=== PATIENT | male | born 1945 | race Caucasian/White ===

== ENCOUNTER → 2016-02-28 | Outpatient (REF) | payer MEDICARE, MEDICAID ==
[~2016-02-28] MED LIST: ASPI325T; AVAP75TA PO; CALC500T36 PO; CIPR500T89 PO; COUM2.5T11 PO; FIBE625T PO; LYRI75CA PO; MAGN250T9 PO; MULTCAP PO; PERC5TAB6 PO; TRAM50TA2 PO; TYLE325T5 PO; VITA100037 PO
[2016-02-28 15:59] LABS: ALBUMIN/GLOBULIN RATIO 1.18 (1.00-1.93); ALKALINE PHOSPHATASE 67 U/L (45-117); ALT/SGPT 47 U/L (12-78); ANION GAP 11 MEQ/L (8-16); AST/SGOT 29 U/L (15-37); BILIRUBIN,TOTAL 1.3 MG/DL (0.2-1.0); BLOOD UREA NITROGEN 10 MG/DL (7-18); CALCIUM LEVEL 8.8 MG/DL (8.8-10.2); CARBON DIOXIDE LEVEL 27 MEQ/L (21-32); CHLORIDE LEVEL 104 MEQ/L (98-107); CHOLESTEROL LEVEL 159 MG/DL (<200); CREATININE FOR GFR 0.78 MG/DL (0.70-1.30); GLOMERULAR FILTRATION RATE > 60.0 (>49); GLUCOSE, FASTING 119 MG/DL (80-110); POTASSIUM SERUM 4.6 MEQ/L (3.5-5.1); SODIUM LEVEL 142 MEQ/L (136-145); TOTAL PROTEIN 7.4 GM/DL (6.4-8.2); TRIGLYCERIDES LEVEL 170 MG/DL (<150)
== END ==
LOC: M SFHCLACO 10:08
PROVIDERS: ATTEND Physician Assistant
DX: I10 Essential (primary) hypertension (principal); E78.6 Lipoprotein deficiency; Z68.42 Body mass index [BMI] 45.0-49.9, adult

== ENCOUNTER → 2016-04-09 | Outpatient (CLI) | payer MEDICAID, MEDICARE ==
[~2016-04-09] VITALS: Ht 167.6 cm; Wt 127.0 kg
[~2016-04-09] MED LIST changes: +LIDOCAINE 2% INJ 100 MG/5 ML SDV (FOR ANES.) As Ordered ONE; +PROPOFOL 200 MG/20 ML VIAL As Ordered ONE; +naproxen PO
--- NOTE | 2016-04-09 09:50 | ROOR ---
Patient Name: Sean Zaragoza Procedure Date: 04/09/2016 9:20 AM Date of : 1945 Age: 70 Room: [facility] Gender: Male Note Status: Finalized Procedure: Colonoscopy Indications: High risk colon cancer surveillance: Personal history of colonic polyps, Surveillance: Personal history of piecemeal removal of large sessile adenoma on last colonoscopy 6 months ago, Last colonoscopy: June 2015 Providers: Alec CADENA MD Referring MD: GRECIA Gonzalez PA-C Requesting Provider: Medicines: Sedation Required Anesthesia Staff Assistance Complications: No immediate complications. Procedure: Pre-Anesthesia Assessment: - The heart rate, respiratory rate, oxygen saturations, blood pressure, adequacy of pulmonary ventilation, and response to care were monitored throughout the procedure. The Colonoscope was introduced through the anus and advanced to the cecum, identified by appendiceal orifice and ileocecal valve. The colonoscopy was performed without difficulty. The patient tolerated the procedure well. The quality of the bowel preparation was good. Findings: The perianal and digital rectal examinations were normal. A 4 mm polyp was found in the ascending colon. The polyp was sessile. The polyp was removed with a hot snare. Resection and retrieval were complete. Two sessile polyps were found in the distal sigmoid colon. The polyps were 4 to 5 mm in size. These polyps were removed with a hot snare. Resection and retrieval were complete. A 4 mm polyp was found in the mid sigmoid colon. The polyp was flat. The polyp was removed with a hot snare. Resection and retrieval were complete. A tattoo was seen in the mid sigmoid colon. A post-polypectomy scar was found at the tattoo site. The polyp was removed with a hot snare. Resection and retrieval were complete. Impression: - One 4 mm polyp in the ascending colon, removed with a hot snare. Resected and retrieved. - Two 4 to 5 mm polyps in the distal sigmoid colon, removed with a hot snare. Resected and retrieved. - A tattoo was seen in the mid sigmoid colon. A post-polypectomy scar was found at the tattoo site. One 4 mm polyp at the tattoo site was removed with a hot snare. Resected and retrieved.- Recommendation: - Repeat colonoscopy in 1 year for surveillance of polyps greater than 1 cm in size. Alec Cadena MD Alec CADENA MD 04/09/2016 9:50:21 AM This report has been signed electronically. Number of Addenda: 0 Note Initiated On: 04/09/2016 9:20 AM Estimated Blood Loss: Estimated blood loss: none.
[2016-04-09 10:20] VITALS: BP 122/59
== END | disposition home or self-care (01) ==
LOC: M OPP 08:07
PROVIDERS: ATTEND Internal Medicine Gastroenterology
DX: Z09 Encounter for follow-up examination after completed treatment for conditions other than malignant neoplasm (principal); D12.2 Benign neoplasm of ascending colon; D12.5 Benign neoplasm of sigmoid colon; Z86.010 Personal history of colon polyps; I10 Essential (primary) hypertension; G47.30 Sleep apnea, unspecified; R06.83 Snoring; Z88.2 Allergy status to sulfonamides; Z88.8 Allergy status to other drugs, medicaments and biological substances; Z79.899 Other long term (current) drug therapy

== ENCOUNTER → 2016-08-16 | Outpatient (REF) | payer OTHER ==
[~2016-08-16] MED LIST changes: -AVAP75TA PO; +AVAP75TA7 PO; +CIPR-249 PO; -CIPR500T89 PO; -COUM2.5T11 PO; +COUM2.5T17 PO; -LIDOCAINE 2% INJ 100 MG/5 ML SDV (FOR ANES.) As Ordered ONE; +PERC5TAB12 PO; -PERC5TAB6 PO; -PROPOFOL 200 MG/20 ML VIAL As Ordered ONE; -VITA100037 PO; +VITA100067 PO
[2016-08-16 17:22] LABS: INR 1.07
[2016-08-16 18:14] LABS: ALBUMIN 3.9 GM/DL (3.2-5.2); ALBUMIN/GLOBULIN RATIO 1.26 (1.00-1.93); ALKALINE PHOSPHATASE 76 U/L (45-117); ALT/SGPT 45 U/L (12-78); ANION GAP 7 MEQ/L (8-16); AST/SGOT 26 U/L (15-37); BILIRUBIN,TOTAL 1.2 MG/DL (0.2-1.0); BLOOD UREA NITROGEN 19 MG/DL (7-18); CALCIUM LEVEL 9.3 MG/DL (8.8-10.2); CARBON DIOXIDE LEVEL 28 MEQ/L (21-32); CHLORIDE LEVEL 109 MEQ/L (98-107); CREATININE FOR GFR 0.94 MG/DL (0.70-1.30); GLOMERULAR FILTRATION RATE > 60.0 (>49); GLUCOSE, FASTING 163 MG/DL (80-110); POTASSIUM SERUM 4.5 MEQ/L (3.5-5.1); SODIUM LEVEL 144 MEQ/L (136-145)
[2016-08-16 19:36] LABS: BASO % 0.8 % (0.0-1.0); EOS # 0.2 K/mm3 (0.0-0.50); EOS % 2.8 % (0.0-3.0); LARGE UNSTAINED CELL # 0.1 K/mm3 (0.0-0.4); LYMPH # 1.9 K/mm3 (1.5-4.5); LYMPH % 31.1 % (24.0-44.0); MEAN CORPUSCULAR HEMOGLOBIN 32.9 pg (27.0-33.0); MEAN CORPUSCULAR HGB CONC 34.5 g/dl (32.0-36.5); MEAN CORPUSCULAR VOLUME 95.4 fl (80.0-96.0); MONO # 0.4 K/mm3 (0.0-0.8); MONO % 5.6 % (0.0-5.0); NEUTROPHILS # 3.5 K/mm3 (1.8-7.7); NEUTROPHILS % 57.6 % (36.0-66.0); PLATELET COUNT, AUTOMATED 176 k/mm3 (150-450); RED CELL DISTRIBUTION WIDTH 12.8 % (11.5-14.5); WHITE BLOOD COUNT 6.1 K/mm3 (4.0-10.0)
== END ==
LOC: M SFHCPLAZ 16:03
PROVIDERS: ATTEND Family Medicine
DX: Z01.818 Encounter for other preprocedural examination (principal); G56.02 Carpal tunnel syndrome, left upper limb; I10 Essential (primary) hypertension; R73.01 Impaired fasting glucose; Z68.42 Body mass index [BMI] 45.0-49.9, adult; G47.33 Obstructive sleep apnea (adult) (pediatric); Z79.899 Other long term (current) drug therapy
CPT/HCPCS: 80053; 83036; 85025; 85610; 85730; 93005; G0463

== ENCOUNTER → 2016-10-02 | Outpatient (REF) | payer OTHER ==
[2016-10-02 16:43] LABS: ALBUMIN 3.8 GM/DL (3.2-5.2); ALBUMIN/GLOBULIN RATIO 1.36 (1.00-1.93); ALKALINE PHOSPHATASE 60 U/L (45-117); ALT/SGPT 38 U/L (12-78); ANION GAP 8 MEQ/L (8-16); AST/SGOT 24 U/L (15-37); BLOOD UREA NITROGEN 17 MG/DL (7-18); CALCIUM LEVEL 8.6 MG/DL (8.8-10.2); CARBON DIOXIDE LEVEL 26 MEQ/L (21-32); CHLORIDE LEVEL 112 MEQ/L (98-107); CHOLESTEROL LEVEL 140 MG/DL (<200); GLOMERULAR FILTRATION RATE > 60.0 (>49); GLUCOSE, FASTING 99 MG/DL (80-110); POTASSIUM SERUM 4.5 MEQ/L (3.5-5.1); SODIUM LEVEL 146 MEQ/L (136-145); TOTAL PROTEIN 6.6 GM/DL (6.4-8.2); TRIGLYCERIDES LEVEL 110 MG/DL (<150)
== END ==
LOC: M SFHCLACO 09:37
PROVIDERS: ATTEND Physician Assistant
DX: I10 Essential (primary) hypertension (principal); E78.6 Lipoprotein deficiency; K21.9 Gastro-esophageal reflux disease without esophagitis; K76.89 Other specified diseases of liver; E61.2 Magnesium deficiency; G80.9 Cerebral palsy, unspecified; E66.01 Morbid (severe) obesity due to excess calories; H61.23 Impacted cerumen, bilateral; Z79.899 Other long term (current) drug therapy

== ENCOUNTER → 2017-01-29 | Outpatient (REF) | payer OTHER ==
[2017-01-29 14:56] LABS: ALBUMIN 4.2 GM/DL (3.2-5.2); ALBUMIN/GLOBULIN RATIO 1.27 (1.00-1.93); ALKALINE PHOSPHATASE 64 U/L (45-117); ALT/SGPT 45 U/L (12-78); ANION GAP 7 MEQ/L (8-16); AST/SGOT 24 U/L (7-37); BILIRUBIN,TOTAL 1.5 MG/DL (0.2-1.0); BLOOD UREA NITROGEN 19 MG/DL (7-18); CALCIUM LEVEL 8.6 MG/DL (8.8-10.2); CARBON DIOXIDE LEVEL 27 MEQ/L (21-32); CHLORIDE LEVEL 107 MEQ/L (98-107); CHOLESTEROL LEVEL 144 MG/DL (<200); CREATININE FOR GFR 0.88 MG/DL (0.70-1.30); GLOMERULAR FILTRATION RATE > 60.0 (>49); GLUCOSE, FASTING 98 MG/DL (80-110); POTASSIUM SERUM 4.3 MEQ/L (3.5-5.1); SODIUM LEVEL 141 MEQ/L (136-145); TOTAL PROTEIN 7.5 GM/DL (6.4-8.2); TRIGLYCERIDES LEVEL 100 MG/DL (<150)
== END ==
LOC: M SFHCLACO 09:39
PROVIDERS: ATTEND Physician Assistant
DX: E11.9 Type 2 diabetes mellitus without complications (principal); I10 Essential (primary) hypertension; E78.6 Lipoprotein deficiency

== ENCOUNTER → 2017-07-25 | Outpatient (REF) | payer MEDICARE ==
[2017-07-25 15:10] LABS: ALBUMIN 4.1 GM/DL (3.2-5.2); ALBUMIN/GLOBULIN RATIO 1.21 (1.00-1.93); ALKALINE PHOSPHATASE 62 U/L (45-117); ALT/SGPT 27 U/L (12-78); ANION GAP 8 MEQ/L (8-16); AST/SGOT 18 U/L (7-37); BILIRUBIN,TOTAL 1.6 MG/DL (0.2-1.0); BLOOD UREA NITROGEN 19 MG/DL (7-18); CALCIUM LEVEL 9.1 MG/DL (8.8-10.2); CARBON DIOXIDE LEVEL 27 MEQ/L (21-32); CHLORIDE LEVEL 107 MEQ/L (98-107); CHOLESTEROL LEVEL 131 MG/DL (<200); CHOLESTEROL RISK RATIO 3.852 (<5); CREATININE FOR GFR 0.89 MG/DL (0.70-1.30); GLOMERULAR FILTRATION RATE > 60.0 (>42); GLUCOSE, FASTING 92 MG/DL (70-100); HDL CHOLESTEROL 34 MG/DL (>40); LDL CHOLESTEROL 73.2 MG/DL (<100); NON-HDL-C 97 MG/DL; POTASSIUM SERUM 4.5 MEQ/L (3.5-5.1); SODIUM LEVEL 142 MEQ/L (136-145); TOTAL PROTEIN 7.5 GM/DL (6.4-8.2); TRIGLYCERIDES LEVEL 119 MG/DL (<150)
[2017-07-25 15:12] LABS: ESTIMATED AVERAGE GLUCOSE 108 MG/DL (60-110); HEMOGLOBIN A1c 5.4 %
== END ==
LOC: M SFHCLACO 10:13
DX: I10 Essential (primary) hypertension (principal); E11.9 Type 2 diabetes mellitus without complications; E78.6 Lipoprotein deficiency
CPT/HCPCS: 80053

== ENCOUNTER 2017-10-03 06:58 | Day surgery (SDC) | payer MEDICARE, MEDICAID ==
[2017-10-03] MEDS: NS 1,000 ML IV (07:15)
[2017-10-03] MEDS ORDERED: PROPOFOL 200 MG/20 ML VIAL As Ordered (07:47)
[2017-10-03] MEDS ORDERED: LIDOCAINE 2% INJ 100 MG/5 ML SDV (FOR ANES.) As Ordered (07:47)
== END 2017-10-03 08:36 | disposition home or self-care (01) ==
LOC: M OPP 08:36
DX: Z09 Encounter for follow-up examination after completed treatment for conditions other than malignant neoplasm (principal); Z86.010 Personal history of colon polyps; K57.30 Diverticulosis of large intestine without perforation or abscess without bleeding; K64.8 Other hemorrhoids; I10 Essential (primary) hypertension; E11.9 Type 2 diabetes mellitus without complications; M19.90 Unspecified osteoarthritis, unspecified site; M54.89 Other dorsalgia; G47.8 Other sleep disorders; G47.30 Sleep apnea, unspecified; R06.83 Snoring; G62.9 Polyneuropathy, unspecified; Z96.651 Presence of right artificial knee joint; Z87.891 Personal history of nicotine dependence; Z88.8 Allergy status to other drugs, medicaments and biological substances; Z88.2 Allergy status to sulfonamides; Z79.84 Long term (current) use of oral hypoglycemic drugs; Z79.899 Other long term (current) drug therapy
CPT/HCPCS: 45378

== ENCOUNTER → 2018-01-23 | Outpatient (REF) | payer MEDICARE ==
[2018-01-23 13:25] LABS: ALBUMIN 3.9 GM/DL (3.2-5.2); ALBUMIN/GLOBULIN RATIO 1.08 (1.00-1.93); ALKALINE PHOSPHATASE 66 U/L (45-117); ALT/SGPT 25 U/L (12-78); ANION GAP 6 MEQ/L (8-16); AST/SGOT 17 U/L (7-37); BILIRUBIN,TOTAL 1.3 MG/DL (0.2-1.0); BLOOD UREA NITROGEN 22 MG/DL (7-18); CALCIUM LEVEL 9.3 MG/DL (8.8-10.2); CARBON DIOXIDE LEVEL 30 MEQ/L (21-32); CHLORIDE LEVEL 105 MEQ/L (98-107); CHOLESTEROL LEVEL 136 MG/DL (<200); CREATININE FOR GFR 1.01 MG/DL (0.70-1.30); GLOMERULAR FILTRATION RATE > 60.0 (>42); GLUCOSE, FASTING 97 MG/DL (70-100); HDL CHOLESTEROL 32 MG/DL (>40); LDL CHOLESTEROL 84 MG/DL (<100); NON-HDL-C 104 MG/DL; POTASSIUM SERUM 5.1 MEQ/L (3.5-5.1); SODIUM LEVEL 141 MEQ/L (136-145); TOTAL PROTEIN 7.5 GM/DL (6.4-8.2); TRIGLYCERIDES LEVEL 100 MG/DL (<150)
[2018-01-23 14:07] LABS: ESTIMATED AVERAGE GLUCOSE 126 MG/DL (60-110)
== END ==
LOC: M SFHCADAM 09:23
DX: E11.9 Type 2 diabetes mellitus without complications (principal); E78.6 Lipoprotein deficiency
CPT/HCPCS: 80053

== ENCOUNTER 2018-05-17 23:33 | Inpatient (IN) | payer MEDICARE ==
[~2018-05-17] VITALS: Ht 167.6 cm; Wt 105.9 kg
[~2018-05-17 23:33] MED LIST changes: +ASPI-1; -ASPI325T; +CALC12504 PO; -CALC500T36 PO; +CALC600T60 PO; +FISH120016 PO; +METF500T4 PO; +MIRA3350 PO; +NAPR-837 PO; +NEUR100C PO
[2018-05-17] MEDS ORDERED: FISH7.5C PO (23:49)
[2018-05-17] MEDS ORDERED: LOSA50TA88 PO (23:49)
[2018-05-17] MEDS ORDERED: AMOX875T2 PO (23:50)
[2018-05-18] MEDS: IPRATROPIUM 0.5MG/ALBUTEROL 2.5MG INH SOL UD 3ML (DUONEB)(J7620) NEB SCH ×3 (00:52→01:51)
[2018-05-18 01:09] LABS: ABG BASE EXCESS 1.1 (-2.0-2.0); ABG HCO3 24.1 MEQ/L (22.0-26.0); ABG O2 SATURATION 89.3 % (95.0-99.0); ABG PARTIAL PRESSURE CO2 33.7 mmHg (35.0-45.0); ABG PARTIAL PRESSURE O2 57.3 mmHg (75.0-100.0); ABG STANDARD HCO3 25.3 MEQ/L (22.0-26.0); ABG TOTAL CO2 25.1 MEQ/L (23.0-31.0); ABG pH (ARTERIAL) 7.472 UNITS (7.350-7.450)
[2018-05-18 01:10] LABS: BASO # 0.1 10^3/uL (0.0-0.2); BASO % 0.7 % (0.0-1.0); EOS # 0.4 10^3/uL (0.0-0.50); EOS % 4.1 % (0.0-3.0); HEMATOCRIT 44.2 % (42.0-52.0); HEMOGLOBIN 15.3 g/dl (13.5-17.5); LYMPH % 10.8 % (24.0-44.0); MEAN CORPUSCULAR HEMOGLOBIN 30.5 pg (27.0-33.0); MEAN CORPUSCULAR HGB CONC 34.6 g/dl (32.0-36.5); MONO # 0.8 10^3/uL (0.0-0.8); MONO % 8.2 % (0.0-5.0); NEUTROPHILS # 7.1 10^3/uL (1.8-7.7); PLATELET COUNT, AUTOMATED 228 10^3/uL (150-450); RED BLOOD COUNT 5.02 10^6/uL (4.30-6.10); WHITE BLOOD COUNT 9.4 10^3/uL (4.0-10.0)
[2018-05-18 01:44] LABS: BLOOD UREA NITROGEN 16 MG/DL (7-18); CALCIUM LEVEL 9.2 MG/DL (8.8-10.2); CARBON DIOXIDE LEVEL 26 MEQ/L (21-32); CHLORIDE LEVEL 109 MEQ/L (98-107); CPK CREATINE PHOSPHOKINASE 122 U/L (39-308); CREATININE FOR GFR 0.85 MG/DL (0.70-1.30); GLOMERULAR FILTRATION RATE > 60.0 (>42); GLUCOSE, FASTING 90 MG/DL (70-100); MB/CK RELATIVE INDEX 1.15 (< OR =4); NT-PRO BNP 193 PG/ML (<125); SODIUM LEVEL 142 MEQ/L (136-145); TROPONIN I < 0.02 NG/ML (< 0.10)
[2018-05-18 01:45] LABS: INFLUENZA A AMPLIFICATION NEGATIVE (NEGATIVE); INFLUENZA B AMPLIFICATION NEGATIVE (NEGATIVE)
[2018-05-18] MEDS ORDERED: ISOVUE-370 76% 100ML VIAL (Q9967) As Ordered ONE (01:53)
[2018-05-18] MEDS ORDERED: dexameTHASONE 20 MG/5 ML VIAL (J1100) IV ONE (02:00)
[2018-05-18] MEDS ORDERED: cefTRIAXone SOD 1 GM in D5W MINI-BAG PLUS 50 ML IV ONE (02:00)
[2018-05-18] MEDS ORDERED: AZITHROMYCIN INJ 500 MG, VIAL MATE ADAPTER 1 EACH in D5W 250 ML IV ONE (02:00)
[2018-05-18] MEDS ORDERED: VITMTA PO (02:08)
--- NOTE | 2018-05-18 02:46 | REPVR ---
EXAM: CT Angiography Chest With Contrast EXAM DATE/TIME: 05/18/2018 1:55 AM CLINICAL HISTORY: 72 years old, male; Pain; Chest pain; Additional info: Dysp TECHNIQUE: Imaging protocol: Axial computed tomographic angiography images of the chest with intravenous contrast using CT angiography protocol. Coronal and sagittal reformatted images were created and reviewed. 3D rendering: MIP reconstructed images were created and reviewed. Radiation optimization: All CT scans at this facility use at least one of these dose optimization techniques: automated exposure control; mA and/or kV adjustment per patient size (includes targeted exams where dose is matched to clinical indication); or iterative reconstruction. Contrast material: ISO 370 Contrast volume: 75 ml Contrast route: IV COMPARISON: CR Chest, 2 view PA, Lat 05/18/2018 12:08 AM FINDINGS: Pulmonary arteries: The main pulmonary artery measures 29 mm. No gross central pulmonary embolism is identified. Aorta: The ascending thoracic aorta measures 35 mm. Lungs: Mild patchy bilateral pulmonary infiltrates and interstitial coarsening. Motion artifact of the lungs with image degradation. Pleural space: Normal. No pneumothorax. No pleural effusion. Heart: Normal. No cardiomegaly. No pericardial effusion. Spleen: Borderline splenomegaly. Lymph nodes: Small mediastinal nodes which are within normal limits. Bones/joints: Degenerative change and segmental ankylosis of the thoracic spine. Soft tissues: Unremarkable. IMPRESSION: 1. Mild patchy bilateral pulmonary infiltrates and interstitial coarsening. 2. Borderline splenomegaly. 3. Motion artifacts in the lungs with image degradation. No gross central pulmonary embolism is identified. Electronically signed by: Christopher Hawkins On 05/18/2018 02:45:29 AM
[2018-05-18] MEDS ORDERED: IPRATROPIUM 0.5MG/ALBUTEROL 2.5MG INH SOL UD 3ML (DUONEB)(J7620) NEB PRN (03:15)
[2018-05-18] MEDS ORDERED: ACETAMINOPHEN TAB 650MG DOSE (2X325MG) PO PRN (03:15)
[2018-05-18] MEDS ORDERED: NAPROXEN 250 MG TAB PO PRN (03:30)
--- NOTE | 2018-05-18 03:48 | HPEPDOC ---
[facility] Medical History & Physical History and Physical CHIEF COMPLAINT: Shortness of breath HISTORY OF PRESENT ILLNESS: Sean Zaragoza is a 72 YO M with history of hypertension and diabetes who presents with 2 weeks of shortness of breath. He states that he has been coughing so heavily that it has given him pain in his abdomen and his throat. One week ago he went to see his primary care physician, who wrote a prescription for Augmentin for 10 days. He has been taking it for 6 days so far with no improvement to his shortness of breath. He has also tried using his 's nebulizer with albuterol, which only provided a short amount of relief for his shortness of breath. He is coughing up yellow mucus. He denies any fevers or chills, nausea or vomiting or diarrhea. He does report a severe headache when he coughs. PAST MEDICAL HISTORY: 1. Kidney Stone 2. Hypertension 3. RJ, severe, on CPAP; follows with [facility] 4. Diabetes PAST SURGICAL HISTORY: 1. Compound fracture and dislocated elbow of L arm, 1975 2. Fractured R elbow 3. 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 Denies any other drug use. Has cats, dog, and 2 pigeons as pets Former lovett FAMILY HISTORY: Noncontributory ALLERGIES: Please see below. REVIEW OF SYSTEMS: 10 point review of systems was conducted and is negative other than what is stated above in HPI HOME MEDICATIONS: Please see below. PHYSICAL EXAMINATION: VITAL SIGNS: Temperature 96.8, pulse 77, respiratory rate 20, blood pressure 123/70, pulse oximetry 96% % on 2 L nasal cannula GENERAL APPEARANCE: Calm, cooperative, pleasant, laying in stretcher, awake, ap pears stated age HEENT: Moist mucous membranes. No erythema, no thyromegaly, fair dentition CARDIOVASCULAR: Regular rate and rhythm, no murmurs, rubs or gallops LUNGS: Rhonchorous breath sounds in all cook ABDOMEN: Protuberant, soft, nontender, positive bowel sounds MUSCULOSKELETAL: Moves all extremities well EXTREMITIES: No clubbing, cyanosis or edema NEUROLOGICAL: Cranial nerves II through XII intact, no focal deficits PSYCHIATRIC: Normal mood, normal affect, awake, alert and oriented 3 LABORATORY DATA: See below. IMAGING: CXR: Read pending CTA: 1. Mild patchy bilateral pulmonary infiltrates and interstitial coarsening. 2. Borderline splenomegaly. 3. Motion artifacts in the lungs with image degradation. No gross central pulmonary embolism is identified. MICROBIOLOGY: Please see below. ASSESSMENT: This is a 72-year-old male with a history of hypertension and diabetes who presents with almost 2 weeks of shortness of breath and no improvement despite 5 days of Augmentin. He will be admitted to the medical surgical floor for IV antibiotic therapy for suspected pneumonia versus interstitial disease PLAN: #Shortness of breath: Mostly likely 2/2 pneumonia vs upper respiratory infection. Patient is afebrile with WBC WNL. CT-A demonstrates bilateral infiltrates. -DuoNeb therapy Q3H PRN -IV Rocephin and Azithromycin therapy -Incentive spirometry -Oxygen titration orders for >90% -Sputum culture pending -lactic acid WNL -Patient uses CPAP at home; will need to use at night while inpatient #Hypertension: -Continue home Losartan #Diabetes: -Holding home Metformin -Consistent carbohydrate diet DVT Ppx: Antiembolic stockings CODE STATUS: FULL CODE Vital Signs Vital Signs Date Time Temp Pulse Resp B/P (MAP) Pulse Ox O2 Delivery O2 Flow Rate FiO2 05/18/18 03:16 96.8 05/18/18 03:00 123/70 (87) 05/18/18 02:22 77 20 96 Nasal Cannula 2.0 Laboratory Data Labs 24H Laboratory Tests 2 05/18/18 01:00: Immature Granulocyte % (Auto) 0.2, White Blood Count 9.4, Red Blood Count 5.02, Hemoglobin 15.3, Hematocrit 44.2, Mean Corpuscular Volume 88.0, Mean Corpuscular Hemoglobin 30.5, Mean Corpuscular Hemoglobin Concent 34.6, Red Cell Distribution Width 13.6, Platelet Count 228, Neutrophils (%) (Auto) 76.0H, Lymphocytes (%) (Auto) 10.8L, Monocytes (%) (Auto) 8.2H, Eosinophils (%) (Auto) 4.1H, Basophils (%) (Auto) 0.7, Neutrophils # (Auto) 7.1, Lymphocytes # (Auto) 1.0L, Monocytes # (Auto) 0.8, Eosinophils # (Auto) 0.4, Basophils # (Auto) 0.1, Nucleated Red Blood Cells % (auto) 0.0, Blood Gas Bicarbonate Standard 25.3, Arterial Blood pH 7.472H, Arterial Blood Partial Pressure CO2 33.7L, Arterial Blood Partial Pressure O2 57.3L, Arterial Blood Total CO2 25.1, Arterial Blood HCO3 24.1, Arterial Blood Base Excess 1.1, Arterial Blood Oxygen Saturation 89.3L, Anion Gap 7L, Glomerular Filtration Rate > 60.0, Lactic Acid Level 1.0, Blood Urea Ni trogen 16, Creatinine 0.85, Sodium Level 142, Potassium Level 4.0, Chloride Level 109H, Carbon Dioxide Level 26, Calcium Level 9.2, Total Creatine Kinase 122, Creatine Kinase MB 1.0, Creatine Kinase MB Relative Index 1.15, Troponin I < 0.02, QY-Vke-O-Type Natriuretic Peptide 193H, Influenza Type A (RT-PCR) NEGATIVE, Influenza Type B (RT-PCR) NEGATIVE CBC/BMP Laboratory Tests 05/18/18 01:00 Red Blood Count 5.02, Mean Corpuscular Volume 88.0, Mean Corpuscular Hemoglobin 30.5, Mean Corpuscular Hemoglobin Concent 34.6, Red Cell Distribution Width 13.6, Neutrophils (%) (Auto) 76.0 H, Lymphocytes (%) (Auto) 10.8 L, Monocytes (%) (Auto) 8.2 H, Eosinophils (%) (Auto) 4.1 H, Basophils (%) (Auto) 0.7, Neutrophils # (Auto) 7.1, Lymphocytes # (Auto) 1.0 L, Monocytes # (Auto) 0.8, Eosinophils # (Auto) 0.4, Basophils # (Auto) 0.1, Calcium Level 9.2, Total Creatine Kinase 122 Microbiology Microbiology 05/18/18 Blood Culture, Received Pending Home Medications Scheduled Amoxicillin/Clavulanate Potas (Amoxicillin/Clavulanate P 875-125 mg) 1 Tab Tab, 1 TAB PO BID START 05/12/18 TO TAKE X 10 DAYS Calcium Carbonate (Calcium) 600 Mg Tab, 600 MG PO DAILY Gabapentin (Neurontin) 100 Mg Cap, 100 MG PO TID Losartan Potassium (Losartan Potassium) 50 Mg Tab, 50 MG PO DAILY Metformin Hydrochloride (Metformin HCl ER) 500 Mg Tab, 500 MG PO BID Multivitamins *[facility] STOCKED* (Thera M Plus *[facility] STOCKED*) 1 Tab Tab, 1 TAB PO DAILY Bolt 3 Polyunsat Fatty Acids (Fish Oil 1000 mg) 1 Cap Cap, 1 CAP PO BID Polyethylene Glycol (Miralax) 1 Pow Pow, 17 GM PO DAILY Vitamin D (Vitamin D) 1,000 Unit Cap, 1,000 UNIT PO DAILY Scheduled PRN Naproxen (Naprosyn) 500 Mg Tab, 500 MG PO BID PRN for PAIN Allergies Coded Allergies: Sulfa (Sulfonamide Antibiotics) (Verified Allergy, Mild, RASH, 05/18/18) meloxicam (Verified Adverse Reaction, Mild, NV, 05/18/18) GME ATTESTATION GME ATTESTATION My faculty preceptor for this patient encounter was physically present during the encounter and was fully available. All aspects of the patient interview, examination, medical decision making process, and medical care plan development were reviewed and approved by the faculty preceptor. The faculty preceptor is aware and concurs with the plan as stated in the body of this note and will attest to such by his/her cosignature. ATTENDING NOTE ATTENDING ATTESTATION: I discussed and reviewed the findings and plan with resident. I have personally assessed patient at bedside and agreed with resident's assessment and plans. Patient noted to have interstitial lung pattern on CXR with fine velcro crackles throughout. Concern for possible interstitial lung disease/pulmonary fibrosis. Does have pigeon pets at home and possible occupational exposure. Obtain CT scan to better evaluate lung parenchyma. ARMIN DWYER MD May 18, 2018 03:48 BROOKLYN MENDEZ MD May 18, 2018 03:54
[2018-05-18 04:43] VITALS: BP 131/87
[2018-05-18 06:01] LABS: HEMOGLOBIN 14.9 g/dl (13.5-17.5); MEAN CORPUSCULAR HEMOGLOBIN 29.9 pg (27.0-33.0); MEAN CORPUSCULAR HGB CONC 33.9 g/dl (32.0-36.5); MEAN CORPUSCULAR VOLUME 88.2 fl (80.0-96.0); PLATELET COUNT, AUTOMATED 218 10^3/uL (150-450); RED BLOOD COUNT 4.99 10^6/uL (4.30-6.10); WHITE BLOOD COUNT 7.9 10^3/uL (4.0-10.0)
[2018-05-18 06:24] LABS: BLOOD UREA NITROGEN 15 MG/DL (7-18); CALCIUM LEVEL 9.3 MG/DL (8.8-10.2); CARBON DIOXIDE LEVEL 25 MEQ/L (21-32); CHLORIDE LEVEL 107 MEQ/L (98-107); GLOMERULAR FILTRATION RATE > 60.0 (>42); GLUCOSE, FASTING 164 MG/DL (70-100); POTASSIUM SERUM 3.5 MEQ/L (3.5-5.1); SODIUM LEVEL 140 MEQ/L (136-145)
[2018-05-18] MEDS: LEVALBUTEROL 1.25 MG/0.5 ML CONCENTRATE NEB INH SCH ×5 (08:00→23:56)
[2018-05-18] MEDS: GABAPENTIN 100 MG CAP PO SCH ×3 (08:19→20:47)
[2018-05-18] MEDS: LOSARTAN 50 MG TAB PO SCH (08:20)
[2018-05-18] MEDS ORDERED: LEVALBUTEROL 1.25 MG/0.5 ML CONCENTRATE NEB INH PRN (08:30)
[2018-05-18] MEDS ORDERED: SODIUM CHLORIDE NASAL 0.65% SPRAY BTL (OCEAN) PRN (08:45)
--- NOTE | 2018-05-18 08:49 | REP ---
Clinical: Dyspnea. Technique: PA and lateral. Comparison: 04/15/2015. Findings: Diffuse bilateral opacities are concerning for multifocal pneumonia and require correlation. No effusion. No pneumothorax. Mediastinum and cardiac silhouette normal. Skeletal structures demonstrate age-related changes. Impression: Diffuse bilateral opacities suggesting multifocal pneumonia. Electronically Signed by Surinder Sanford MD 05/18/2018 08:41 A
[2018-05-18 10:00] VITALS: BP 141/79
[2018-05-18] MEDS: SODIUM CHLORIDE NASAL 0.65% SPRAY BTL (OCEAN) SCH ×3 (10:21→20:47)
[2018-05-18] MEDS ORDERED: GLUCAGON FOR INJ 1 MG VIAL (J1610) SC PRN (11:15)
[2018-05-18] MEDS ORDERED: GLUCOSE 4 GM CHEW TABLET PO PRN (11:15)
[2018-05-18] MEDS ORDERED: DEXTROSE 50% 50 ML SYRINGE IV PRN (11:15)
[2018-05-18] MEDS: HumaLOG INSULIN (NovoLOG) PER UNIT SC SCH ×3 (13:09→20:48)
[2018-05-18 14:00] VITALS: BP 144/76
--- NOTE | 2018-05-18 15:46 | IPNPDOC ---
Date Seen The patient was seen on 05/18/18. Progress Note SUBJECTIVE: c/o dry cough difficult to expectorate. no chills. some SOB. not home o2 dependent. OBJECTIVE: PHYSICAL EXAMINATION: VITAL SIGNS: PLS SEE BELOW GENERAL APPEARANCE: Calm, cooperative, pleasant, laying in stretcher, awake, appears stated age HEENT: Moist mucous membranes. No erythema, no thyromegaly, fair dentition CARDIOVASCULAR: Regular rate and rhythm, no murmurs, rubs or gallops LUNGS: Rhonchorous breath sounds in all cook ABDOMEN: Protuberant, soft, nontender, positive bowel sounds MUSCULOSKELETAL: Moves all extremities well EXTREMITIES: No clubbing, cyanosis or edema NEUROLOGICAL: Cranial nerves II through XII intact, no focal deficits PSYCHIATRIC: Normal mood, normal affect, awake, alert and oriented 3 LABORATORY DATA, MICROBIOLOGY: See below. IMAGING: CXR: Read pending CTA: 1. Mild patchy bilateral pulmonary infiltrates and interstitial coarsening. 2. Borderline splenomegaly. 3. Motion artifacts in the lungs with image degradation. No gross central pulmonary embolism is identified. MICROBIOLOGY: Please see below. ASSESSMENT /PLAN:72 YO M with history of hypertension and diabetes who presents with 2 weeks of shortness of breath. He states that he has been coughing so heavily that it has given him pain in his abdomen and his throat. One week ago he went to see his primary care physician, who wrote a prescription for Augmentin for 10 days. He has been taking it for 6 days so far with no improvement to his shortness of breath. He has also tried using his 's nebulizer with albuterol, which only provided a short amount of relief for his shortness of breath. He is coughing up yellow mucus. He denies any fevers or chills, nausea or vomiting or diarrhea. He does report a severe headache when he coughs. [place] [facility] acquired pneumonia . CT-A demonstrates bilateral infiltrates. -DuoNeb therapy Q3H PRN -IV Rocephin and Azithromycin therapy -Incentive spirometry -Oxygen titration orders for >90% -Sputum culture pending -lactic acid WNL -Patient uses CPAP at home; will need to use at night while inpatient Hypertension: -Continue home Losartan Diabetes: -Holding home Metformin -Consistent carbohydrate diet -sliding scale with coverate Kidney Stone, asx. RJ, severe, on CPAP; follows with [facility] DVT Ppx: Antiembolic stockings CODE STATUS: FULL CODE VS, I&O, 24H, Fishbone Vital Signs/I&O Vital Signs Date Time Temp Pulse Resp B/P (MAP) Pulse Ox O2 Delivery O2 Flow Rate FiO2 05/18/18 04:43 96.9 100 20 131/87 (102) 94 1.0 05/18/18 03:15 Nasal Cannula I&O- Last 24 Hours up to 6 AM 05/18/18 06:00 Intake Total 0 ml Output Total 0 ml Balance 0 ml Laboratory Data 24H LABS Laboratory Tests 2 05/18/18 01:00: Immature Granulocyte % (Auto) 0.2, White Blood Count 9.4, Red Blood Count 5.02, Hemoglobin 15.3, Hematocrit 44.2, Mean Corpuscular Volume 88.0, Mean Corpuscular Hemoglobin 30.5, Mean Corpuscular Hemoglobin Concent 34.6, Red Cell Distribution Width 13.6, Platelet Count 228, Neutrophils (%) (Auto) 76.0H, Lymphocytes (%) (Auto) 10.8L, Monocytes (%) (Auto) 8.2H, Eosinophils (%) (Auto) 4.1H, Basophils (%) (Auto) 0.7, Neutrophils # (Auto) 7.1, Lymphocytes # (Auto) 1.0L, Monocytes # (Auto) 0.8, Eosinophils # (Auto) 0.4, Basophils # (Auto) 0.1, Nucleated Red Blood Cells % (auto) 0.0, Blood Gas Bicarbonate Standard 25.3, Arterial Blood pH 7.472H, Arterial Blood Partial Pressure CO2 33.7L, Arterial Blood Partial Pressure O2 57.3L, Arterial Blood Total CO2 25.1, Arterial Blood HCO3 24.1, Arterial Blood Base Excess 1.1, Arterial Blood Oxygen Saturation 89.3L, Anion Gap 7L, Glomerular Filtration Rate > 60.0, Lactic Acid Level 1.0, Blood Urea Ni trogen 16, Creatinine 0.85, Sodium Level 142, Potassium Level 4.0, Chloride Level 109H, Carbon Dioxide Level 26, Calcium Level 9.2, Total Creatine Kinase 122, Creatine Kinase MB 1.0, Creatine Kinase MB Relative Index 1.15, Troponin I < 0.02, EE-Nab-A-Type Natriuretic Peptide 193H, Influenza Type A (RT-PCR) NEGATIVE, Influenza Type B (RT-PCR) NEGATIVE 05/18/18 05:38: Nucleated Red Blood Cells % (auto) 0.0, Anion Gap 8, Glomerular Filtration Rate > 60.0, Blood Urea Nitrogen 15, Creatinine 1.00, Sodium Level 140, Potassium Level 3.5, Chloride Level 107, Carbon Dioxide Level 25, Calcium Level 9.3 CBC/BMP Laboratory Tests 05/18/18 01:00 Red Blood Count 5.02, Mean Corpuscular Volume 88.0, Mean Corpuscular Hemoglobin 30.5, Mean Corpuscular Hemoglobin Concent 34.6, Red Cell Distribution Width 13.6, Neutrophils (%) (Auto) 76.0 H, Lymphocytes (%) (Auto) 10.8 L, Monocytes (%) (Auto) 8.2 H, Eosinophils (%) (Auto) 4.1 H, Basophils (%) (Auto) 0.7, Neutrophils # (Auto) 7.1, Lymphocytes # (Auto) 1.0 L, Monocytes # (Auto) 0.8, Eosinophils # (Auto) 0.4, Basophils # (Auto) 0.1, Calcium Level 9.2, Total Creatine Kinase 122 05/18/18 05:38 Red Blood Count 4.99, Mean Corpuscular Volume 88.2, Mean Corpuscular Hemoglobin 29.9, Mean Corpuscular Hemoglobin Concent 33.9, Red Cell Distribution Width 13.7, Calcium Level 9.3 Microbiology Microbiology 05/18/18 Blood Culture, Received Pending EVELYN THOMPSON MD May 18, 2018 07:57
[2018-05-18 18:00] VITALS: BP 138/72
[2018-05-18] MEDS: AZITHROMYCIN INJ 500 MG, VIAL MATE ADAPTER 1 EACH in D5W 250 ML IV SCH (20:18)
[2018-05-18] MEDS: cefTRIAXone SOD 2 GM in D5W 50 ML IV SCH (20:47)
[2018-05-18 22:00] VITALS: BP 142/78
[2018-05-19] VITALS (8 sets, daily range): BP systolic 116–151; BP diastolic 59–69
[2018-05-19] MEDS: LEVALBUTEROL 1.25 MG/0.5 ML CONCENTRATE NEB INH SCH ×5 (03:20→20:46)
[2018-05-19 06:07] LABS: HEMOGLOBIN 13.8 g/dl (13.5-17.5); MEAN CORPUSCULAR HEMOGLOBIN 29.7 pg (27.0-33.0); MEAN CORPUSCULAR HGB CONC 33.7 g/dl (32.0-36.5); MEAN CORPUSCULAR VOLUME 88.4 fl (80.0-96.0); PLATELET COUNT, AUTOMATED 240 10^3/uL (150-450); RED BLOOD COUNT 4.64 10^6/uL (4.30-6.10); WHITE BLOOD COUNT 16.2 10^3/uL (4.0-10.0)
[2018-05-19 06:32] LABS: BLOOD UREA NITROGEN 20 MG/DL (7-18); CALCIUM LEVEL 8.8 MG/DL (8.8-10.2); CARBON DIOXIDE LEVEL 25 MEQ/L (21-32); CHLORIDE LEVEL 110 MEQ/L (98-107); CREATININE FOR GFR 0.83 MG/DL (0.70-1.30); GLOMERULAR FILTRATION RATE > 60.0 (>42); GLUCOSE, FASTING 129 MG/DL (70-100); POTASSIUM SERUM 3.9 MEQ/L (3.5-5.1); SODIUM LEVEL 141 MEQ/L (136-145)
[2018-05-19] MEDS: HumaLOG INSULIN (NovoLOG) PER UNIT SC SCH ×4 (08:01→20:33)
--- NOTE | 2018-05-19 09:23 | IPNPDOC ---
Date Seen The patient was seen on 05/19/18. Progress Note SUBJECTIVE: pt c/o compression stocking feeling tight, but does not want heparin or lovenox injections to prevent dvt. no fever overnight. increased wbc with eosinophilia. jeimy need to review w load out supervisor to r/o eosinophilic pneumonitis with hypoxia. o2 sat 88% on room air and still c/o NOYOLA. c/o dry cough difficult to expectorate. no chills. some SOB. not home o2 dependent. OBJECTIVE: PHYSICAL EXAMINATION: VITAL SIGNS: PLS SEE BELOW GENERAL APPEARANCE: Calm, cooperative, pleasant, laying in stretcher, awake, appears stated age HEENT: Moist mucous membranes. No erythema, no thyromegaly, fair dentition CARDIOVASCULAR: Regular rate and rhythm, no murmurs, rubs or gallops LUNGS: Rhonchorous breath sounds in all cook ABDOMEN: Protuberant, soft, nontender, positive bowel sounds MUSCULOSKELETAL: Moves all extremities well EXTREMITIES: No clubbing, cyanosis or edema NEUROLOGICAL: Cranial nerves II through XII intact, no focal deficits PSYCHIATRIC: Normal mood, normal affect, awake, alert and oriented 3 LABORATORY DATA, MICROBIOLOGY: See below. IMAGING: CXR: Read pending CTA: 1. Mild patchy bilateral pulmonary infiltrates and interstitial coarsening. 2. Borderline splenomegaly. 3. Motion artifacts in the lungs with image degradation. No gross central pulmonary embolism is identified. MICROBIOLOGY: Please see below. ASSESSMENT /PLAN:72 YO M with history of hypertension and diabetes who presents with 2 weeks of shortness of breath. He states that he has been coughing so heavily that it has given him pain in his abdomen and his throat. One week ago he went to see his primary care physician, who wrote a prescription for Augmentin for 10 days. He has been taking it for 6 days so far with no improvement to his shortness of breath. He has also tried using his 's nebulizer with albuterol, which only provided a short amount of relief for his shortness of breath. He is coughing up yellow mucus. He denies any fevers or chills, nausea or vomiting or diarrhea. He does report a severe headache when he coughs. [place] acquired pneumonia . CT-A demonstrates bilateral infiltrates. -DuoNeb therapy Q3H PRN -IV Rocephin and Azithromycin therapy -Incentive spirometry -Oxygen titration orders for >90% -Sputum culture pending -lactic acid WNL -Patient uses CPAP at home; will need to use at night while inpatient eosinophilia -will discuss with pulm if eosinophilic pneumonitis Acute hypoxia o2 sat 88% on room air being treated for pneumonia sputum cx pending eosinophils on cbc will discuss differential with pulm. Hypertension: -Continue home Losartan Diabetes: -Holding home Metformin -Consistent carbohydrate diet -sliding scale with coverate Kidney Stone, asx. RJ, severe, on CPAP; follows with [facility] DVT Ppx: Antiembolic stockings CODE STATUS: FULL CODE VS, I&O, 24H, Fishbone Vital Signs/I&O Vital Signs Date Time Temp Pulse Resp B/P (MAP) Pulse Ox O2 Delivery O2 Flow Rate FiO2 05/19/18 06:00 97.0 95 19 116/64 (81) 95 2.0 05/18/18 03:15 Nasal Cannula I&O- Last 24 Hours up to 6 AM 05/19/18 06:00 Intake Total 1715 ml Output Total 1350 ml Balance 365 ml Laboratory Data 24H LABS Laboratory Tests 2 05/18/18 11:13: Bedside Glucose (Misc Panel) 174H 05/18/18 15:34: 05/18/18 17:19: Bedside Glucose (Misc Panel) 157H 05/18/18 20:38: Bedside Glucose (Misc Panel) 182H 05/19/18 05:34: Nucleated Red Blood Cells % (auto) 0.0 05/19/18 05:35: Anion Gap 6L, Glomerular Filtration Rate > 60.0, Blood Urea Nitrogen 20H, Creatinine 0.83, Sodium Level 141, Potassium Level 3.9, Chloride Level 110H, Carbon Dioxide Level 25, Calcium Level 8.8 CBC/BMP Laboratory Tests 05/19/18 05:34 Red Blood Count 4.64, Mean Corpuscular Volume 88.4, Mean Corpuscular Hemoglobin 29.7, Mean Corpuscular Hemoglobin Concent 33.7, Red Cell Distribution Width 13.8 05/19/18 05:35 Calcium Level 8.8 Microbiology Microbiology 05/18/18 Blood Culture - Preliminary, Resulted No growth after 24 hours . All specim... 05/18/18 Gram Stain, Received Pending 05/18/18 Sputum Culture, Received Pending 05/18/18 MRSA Screen, Resulted Pending 05/18/18 Respiratory Virus Panel (PCR) ([facility]) - Final, Resulted EVELYN THOMPSON MD May 19, 2018 08:36
[2018-05-19] MEDS: GABAPENTIN 100 MG CAP PO SCH ×3 (09:48→21:52)
[2018-05-19] MEDS: SODIUM CHLORIDE NASAL 0.65% SPRAY BTL (OCEAN) SCH ×3 (09:48→21:52)
[2018-05-19] MEDS: LOSARTAN 50 MG TAB PO SCH (09:49)
[2018-05-19 15:32] LABS: LYMPH % 6.5 % (24.0-44.0); MONO % 5.2 % (0.0-5.0); NEUTROPHILS % 87.8 % (36.0-66.0)
[2018-05-19 15:33] LABS: BASO % 0.1 % (0.0-1.0)
[2018-05-19 15:34] LABS: LYMPH # 1.1 10^3/uL (1.5-4.5); MONO # 0.9 10^3/uL (0.0-0.8); NEUTROPHILS # 14.6 10^3/uL (1.8-7.7)
[2018-05-19] MEDS: MIRALAX *UNIT DOSE* 17GM PACKET PO SCH (15:56)
[2018-05-19] MEDS ORDERED: FUROSEMIDE 40 MG/4 ML VIAL (J1940) IV ONE (16:00)
[2018-05-19] MEDS: AZITHROMYCIN INJ 500 MG, VIAL MATE ADAPTER 1 EACH in D5W 250 ML IV SCH (20:17)
[2018-05-19] MEDS: cefTRIAXone SOD 2 GM in D5W 50 ML IV SCH (21:52)
--- NOTE | 2018-05-19 22:20 | CR ---
DATE OF CONSULTATION: 05/19/2018 PULMONARY CONSULT NOTE HISTORY OF PRESENT ILLNESS: Mr. Zaragoza is a 72-year-old male with a past medical history of hypertension, diabetes, obstructive sleep apnea (RJ), noncompliant with continuous positive airway pressure (CPAP) who presented with increasing cough for the past few weeks with some shortness of breath. The patient reports that he had started having a cough a few weeks ago, which has been mostly nonproductive with occasional severe episodes of cough causing lightheadedness occasionally from coughing so hard, as well as with shortness of breath mostly with coughing. He was seen by his primary physician and given a prescription of Augmentin, which he took with some slight improvement in his cough. However, the patient continued to have symptoms and continued to have some shortness of breath as well and so he presented to the ED for further evaluation. The patient denied any fevers or chills. He would occasionally cough up some yellow mucus. He had no chest pains. No nausea or vomiting. He denied any increased lower extremity edema that he had noticed. He denies any increased abdominal distension. He has had significant weight loss in the past few months. However, the patient has been attempting to lose weight and has been cutting down his food intake. The patient reports that he has had a previous history of possible asthma, although this was more than 20 years ago. He had been prescribed an inhaler at one time many years ago. He did note worsening of his breathing with exposure to hay and certain weeds, such as ragweed. However, he has not noticed any symptoms of this recently. Since admission, the patient reports that his cough has improved. He has not been having the frequent cough or coughing fits that he previously had. He does feel that the nebulizer treatments have been helping with his cough. He denies any chest pains currently. He has noted that his compression stockings have been cutting into his legs and causing some markings but denied any previous lower extremity edema PAST MEDICAL AND SURGICAL HISTORY: 1. Hypertension. 2. Diabetes. 3. RJ, noncompliant with CPAP. Has not seen Pulmonary in many years. 4. Nephrolithiasis. 5. History of compound fracture and dislocated elbow of left arm. 6. Fractured right elbow 7. 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 SOCIAL HISTORY: The patient denies any significant tobacco use. He previously had smoked maybe an occasional cigar, rarely, when in his 20s. He denies any other drug use. Has occasional alcohol use. 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 However, he has been retired for the past few years. He does have pets at home with cats and dogs as well as recently acquiring two pigeons 2 years ago. The patient has had birds in the past, has had cockatiels and doves. The pigeons are kept in the home. FAMILY HISTORY: He denies any family history of lung disease. No history of cancer. ALLERGIES: To SULFA and MELOXICAM. HOME MEDICATIONS: Augmentin, calcium, gabapentin, losartan, metformin, multivitamin, MiraLAX, vitamin D. PHYSICAL EXAM: Temperature 96.1, pulse 95, respirations 18, blood pressure 117/68, oxygen saturation (O2 sat) 91-93% on 2 liters nasal cannula. Intake 1.5 liters, output 1.3 liters, net positive 155 mL. General: Obese male sitting in bed in no acute distress. Is able to speak in complete sentences, is not using any accessory muscles for respiration. HEENT: Normocephalic, atraumatic. Mucous membranes are moist. Neck is supple. No palpable cervical adenopathy. Cardiac: Regular rate and rhythm. Normal S1, S2. No murmurs appreciated. Lungs: There are diminished breath sounds bilaterally with crackles at the bases and rare inspiratory squeak. Abdomen is obese, soft, nontender, nondistended. Positive bowel sounds. Lower extremities: There is possibly trace edema in the bilateral lower extremities. LABORATORY DATA: WBC 16.2, hemoglobin 13.8, platelets 240. There are no eosinophils today. Chemistry: Sodium 141, potassium 3.9, chloride 110, bicarbonate 25, BUN 20, creatinine 0.83, glucose is 129. Admission CBC showed 4.1% eosinophils. Microbiology: Sputum culture is pending. Methicillin-resistant Staphylococcus aureus (MRSA) screen negative and respiratory virus panel is negative. IMAGING STUDIES: CT angiogram did not show any evidence of pulmonary embolism. There was ground-glass opacities with mosaic attentuation, some mild intralobular septal thickening, more in the upper and mid lungs with some motion artifact limiting some of the clarity of the lung windows. There is no pleural effusion. No significant pericardial effusion. There is borderline splenomegaly. ASSESSMENT/PLAN: Patient is a 72-year-old male with a past medical history of diabetes, hypertension, RJ - not on CPAP, who presented with a cough for the past few weeks, as well as some shortness of breath. The patient initially did not have leukocytosis or fevers on admission, and he had previously been treated with Augmentin as an outpatient with minimal improvement in his symptoms. Here he was started on antibiotics with azithromycin and ceftriaxone for possible pneumonia as well as nebulizer treatments. He does report his cough has improved with the Xopenex nebulizer. He denies any chest pain. No wheezing. No fevers or chills. No increased lower extremity edema. On exam, he does have crackles bilaterally with rare inspiratory squeaks. His imaging showed evidence of ground-glass opacities also with mosaic attentuation bilaterally with some mild intralobular septal thickening, appears to be more in the upper and mid lungs diffusely. He did initially have some mild eosinophilia, and there was concern for possible eosinophilic pneumonia. However, on imaging, it does not appear classic for chronic eosinophilic pneumonia as it is not peripheral upper lobe predominant. He does report a possible exposure history with pigeons at the home, which he has had now for only 2 years. Given the appearance of the ground-glass opacities with some mosaic attenuation, more in the upper and mid lungs, hypersensitivity pneumonitis is in the differential and given his exposure history, definitely possible. Also, given the appearance, pulmonary edema is in the differential. He denies a prior history of cardiac disease; however, his BNP was mildly elevated on admission, and he does have risk factors for diastolic dysfunction as well as risk factors for possible pulmonary hypertension and right-sided heart disease with untreated RJ. The patient has not followed up with a pulmonary doctor in some time, so it is unclear if he has RJ with possible obesity hypoventilation syndrome (OHS) overlap given his obesity. Discussed with the patient the possible differential and that we could consider empiric steroids to see if he has further improvement in his symptoms. However, as he currently does feel his cough has improved, will hold off on steroids given his history of diabetes and his concern that will it cause hyperglycemia. Will continue with nebulizers and will send off testing for ESR, CRP, for hypersensitivity pneumonitis panel and for ANCA for possible vasculitis, although lower on the differential. Patient will be getting rid of his pigeons which will help if he has a hypersensitivity reaction. Continue with nasal cannula oxygen supplementation and would wean off as tolerated. Would give patient incentive spirometer for use. Can give a one-time dose of IV Lasix to see if there is further improvement in symptoms. Would check an echocardiogram to evaluate for pulmonary hypertension. Patient is on ceftriaxone and azithromycin for possible pneumonia. His procalcitonin was negative, however, and he was on outpatient antibiotics. Would check for atypical organisms such as Legionella, Mycoplasma and Chlamydia. Would consider de-escalating antibiotics to azithromycin or doxycycline. Would followup the results of his cultures. Patient can follow-up with pulmonary upon discharge Deep vein thrombosis (DVT) prophylaxis. [facility]
[2018-05-20] MEDS: LEVALBUTEROL 1.25 MG/0.5 ML CONCENTRATE NEB INH SCH ×6 (00:56→19:52)
[2018-05-20 02:00] VITALS: BP 110/58
[2018-05-20 06:00] VITALS: BP 116/57
[2018-05-20 06:11] LABS: HEMATOCRIT 42.4 % (42.0-52.0); HEMOGLOBIN 13.9 g/dl (13.5-17.5); MEAN CORPUSCULAR HEMOGLOBIN 29.6 pg (27.0-33.0); MEAN CORPUSCULAR HGB CONC 32.8 g/dl (32.0-36.5); MEAN CORPUSCULAR VOLUME 90.4 fl (80.0-96.0); PLATELET COUNT, AUTOMATED 221 10^3/uL (150-450); RED BLOOD COUNT 4.69 10^6/uL (4.30-6.10); WHITE BLOOD COUNT 9.6 10^3/uL (4.0-10.0)
[2018-05-20 06:34] LABS: BLOOD UREA NITROGEN 22 MG/DL (7-18); CALCIUM LEVEL 8.7 MG/DL (8.8-10.2); CARBON DIOXIDE LEVEL 27 MEQ/L (21-32); CHLORIDE LEVEL 108 MEQ/L (98-107); CREATININE FOR GFR 0.82 MG/DL (0.70-1.30); GLOMERULAR FILTRATION RATE > 60.0 (>42); GLUCOSE, FASTING 91 MG/DL (70-100); POTASSIUM SERUM 3.8 MEQ/L (3.5-5.1); SODIUM LEVEL 142 MEQ/L (136-145)
[2018-05-20] MEDS: HumaLOG INSULIN (NovoLOG) PER UNIT SC SCH ×4 (07:31→20:54)
[2018-05-20] MEDS: GABAPENTIN 100 MG CAP PO SCH ×3 (08:16→20:54)
[2018-05-20] MEDS: SODIUM CHLORIDE NASAL 0.65% SPRAY BTL (OCEAN) SCH ×3 (08:16→20:54)
[2018-05-20] MEDS: MIRALAX *UNIT DOSE* 17GM PACKET PO SCH (08:16)
[2018-05-20] MEDS: LOSARTAN 50 MG TAB PO SCH (08:16)
[2018-05-20] MEDS ORDERED: MIRALAX *UNIT DOSE* 17GM PACKET PO SCH (09:00)
[2018-05-20 10:00] VITALS: BP 119/59
[2018-05-20 14:00] VITALS: BP 118/56
[2018-05-20 15:31] LABS: ANTINUCLEAR ANTIBODIES DIRECT Negative (Negative)
[2018-05-20 18:00] VITALS: BP 126/66
--- NOTE | 2018-05-20 20:03 | IPN ---
DATE: 05/20/2018 SUBJECTIVE: The patient is seen and examined in the room today. The patient continued to have productive cough with dark yellow sputum. Denies any fever or chills. The patient says that he feels that his breathing is improving. OBJECTIVE: VITAL SIGNS: Temperature 97, pulse is 76, respiratory rate 25, blood pressure is 119/59, pulse oximetry is 94% on room air. GENERAL: Alert and awake. No acute distress. HEENT: Normocephalic, atraumatic. Extraocular muscles are grossly intact. CARDIOVASCULAR: Positive S1, S2. Regular rate. LUNGS: Positive crackles bilaterally. Mild expiratory wheezes in end expiratory phases. Decreased breath sounds. ABDOMEN: Soft, nontender. Bowel sounds present. EXTREMITIES: No significant edema appreciated. LABORATORY DATA: WBC 9.6, hemoglobin 13.9, hematocrit 42.4, platelet count is 221. Sodium is 142, potassium 3.8, chloride 108, carbon dioxide 27, BUN is 22, creatinine is 0.82, GFR greater than 60, fasting glucose 91, calcium 8.7. ASSESSMENT AND PLAN: 1. Acute respiratory distress, suspect the patient has community acquired pneumonia. CT angiogram was performed. Previously, the patient showed mild patchy bilateral pulmonary infiltrates and interstitial coarsening. Respiratory panel negative. The patient was on antibiotic prior to admission. Sputum culture showed normal natasha. Follow with atypical organism test. Currently, the patient is on azithromycin and Rocephin. Continue nebulizer treatments. Pulmonology consulted and appreciate their input. 2. Hypertension. Blood pressure is under good control on losartan. 3. Diabetes. On sliding scale and consistent carbohydrate diet. 4. Severe obstructive sleep apnea. The patient is not wearing the continuous positive airway pressure (CPAP). 5. Deep vein thrombosis (DVT) prophylaxis. On thromboembolic compression stockings (TEDS) and compressions.
[2018-05-20] MEDS: AZITHROMYCIN INJ 500 MG, VIAL MATE ADAPTER 1 EACH in D5W 250 ML IV SCH (20:54)
[2018-05-20 22:00] VITALS: BP 117/71
[2018-05-20] MEDS: cefTRIAXone SOD 2 GM in D5W 50 ML IV SCH (22:54)
[2018-05-21 00:07] LABS: L. PNEUMOPHILA (1,3,4,5,6,8) <0.91 OD ratio (0.00-0.90)
[2018-05-21 02:00] VITALS: BP 151/70
[2018-05-21] MEDS: LEVALBUTEROL 1.25 MG/0.5 ML CONCENTRATE NEB INH SCH ×3 (04:00→07:44)
[2018-05-21 06:00] VITALS: BP 124/58
[2018-05-21 06:17] LABS: HEMATOCRIT 43.5 % (42.0-52.0); HEMOGLOBIN 14.3 g/dl (13.5-17.5); MEAN CORPUSCULAR HEMOGLOBIN 29.9 pg (27.0-33.0); MEAN CORPUSCULAR HGB CONC 32.9 g/dl (32.0-36.5); MEAN CORPUSCULAR VOLUME 90.8 fl (80.0-96.0); PLATELET COUNT, AUTOMATED 227 10^3/uL (150-450); RED BLOOD COUNT 4.79 10^6/uL (4.30-6.10)
[2018-05-21 06:36] LABS: BLOOD UREA NITROGEN 18 MG/DL (7-18); CALCIUM LEVEL 8.7 MG/DL (8.8-10.2); CARBON DIOXIDE LEVEL 28 MEQ/L (21-32); CHLORIDE LEVEL 107 MEQ/L (98-107); CREATININE FOR GFR 0.78 MG/DL (0.70-1.30); GLOMERULAR FILTRATION RATE > 60.0 (>42); GLUCOSE, FASTING 86 MG/DL (70-100); POTASSIUM SERUM 4.2 MEQ/L (3.5-5.1); SODIUM LEVEL 141 MEQ/L (136-145)
[2018-05-21] MEDS: HumaLOG INSULIN (NovoLOG) PER UNIT SC SCH (07:13)
[2018-05-21 08:00] VITALS: BP 134/67
[2018-05-21] MEDS: GABAPENTIN 100 MG CAP PO SCH (09:35)
[2018-05-21] MEDS: MIRALAX *UNIT DOSE* 17GM PACKET PO SCH (09:35)
[2018-05-21] MEDS: LOSARTAN 50 MG TAB PO SCH (09:35)
[2018-05-21] MEDS: SODIUM CHLORIDE NASAL 0.65% SPRAY BTL (OCEAN) SCH (09:35)
[2018-05-21] MEDS ORDERED: VENTAER INH (10:03)
[2018-05-21] MEDS ORDERED: AZIT500T2 PO (10:03)
--- NOTE | 2018-05-21 21:01 | DSES ---
DATE OF ADMISSION: 05/18/2018 DATE OF DISCHARGE: 05/21/2018 CONSULTANTS: Technical Director. DISCHARGE DIAGNOSES: 1. Acute respiratory distress, secondary to hypersensitivity pneumonitis. 2. Hypertension. 3. Diabetes. 4. Severe obstructive sleep apnea, noncompliant with CPAP. HOSPITALIZATION COURSE: The patient is a 72-year-old gentleman presented with [facility] on May 18, 2018 with the complaint of persistent shortness of breath. Prior to the hospitalization, the patient has been experiencing severe cough. The patient was seen by the primary care provider prior to admission. The patient took approximately 5 days of antibiotics without any significant improvement. Therefore, the patient came to [facility] for evaluation. Diagnostic workup was performed. Initially, the patient was suspected to have possible pneumonia. The patient started on empiric antibiotics. However, the patient only demonstrated a slow improvements. Later, the patient was found to have increased eosinophils and lock and dam operator consulted. Additional, diagnostic test was performed and he suspect that the patient has hypersensitive pneumonitis. Later, the patient started to show improvements with medical management. The patient's function passed on physical therapy and returned to his baseline, then the patient was deemed stable for discharge with the recommendation to finish a course of azithromycin. The patient is recommended to follow lock and dam operator in one week. During this hospitalization, remote discussion occurred was regarding the patient's obstructive sleep apnea (RJ) and noncompliance with CPAP. The patient stated that he would follow with pulmonology to discuss more options with regarding to his obstructive sleep apnea (RJ) management. OBJECTIVE: VITAL SIGNS: Temperature is 96.9, pulse is 90, respirations 19, blood pressure is 134/67, pulse oximetry 96% on room air. LABORATORY DATA: Hemoglobin 14.3, hematocrit is 43.5, platelet count is 227. Sodium is 141, potassium 4.2, chloride is 107, carbon dioxide 28, BUN 18, creatinine 0.78. Glomerular filtration rate (GFR) greater than 60, fasting glucose 86, calcium 8.7. DOMONIQUE negative. Myeloperoxidase antiviral level pending. Influenza negative. Legionella antibody level negative. Chlamydia antibody panel pending. Mycoplasma antibody level pending. Blackstock serum IgG antibody level pending. Mycobiology blood culture showed no growth after 72 hours. Respiratory panel is negative. Methicillin-resistant Staphylococcus aureus (MRSA) screen is negative. Sputum culture negative. IMAGING STUDY: CT angiogram of the chest demonstrated mild patch bilateral pulmonary infiltrates and interstitial coarsening. Borderline splenomegaly. Motion artifact of the lung with image degradations. No gross central pulmonary embolism is identified. DISCHARGE MEDICATIONS: - Ventolin 2 puff inhalation every 4 to 6 hours as needed - azithromycin 500 mg by mouth daily for two days - calcium carbonate 600 mg daily - Neurontin 100 mg by mouth three times a day - losartan 50 mg by mouth daily - metformin 500 mg by mouth twice a day - multivitamin one tab by mouth daily - naproxen 500 mg by mouth twice a day as needed - MiraLAX 70 gram by mouth daily - vitamin D 1000 units by mouth daily DISCHARGE INSTRUCTIONS: Discontinue line. Discharge home. Activity as tolerated. Consistent carbon hydrate diet as tolerated. The patient should follow with her primary care provider in one week. The patient should follow with lock and dam operator in one week. The patient recommended to finish course of antibiotic. The patient understand the importance of obstructive sleep apnea management. He has been very noncompliant for the past few years. The patient agreed to discuss obstructive sleep apnea management with lock and dam operator to schedule an appointment. DISCHARGE CONDITION: Fair. DISCHARGE TIME: Greater than 30 minutes.
[2018-05-22 00:07] LABS: BODY FLUID CULTURE Not Indicated (.); ORGANISM ID Not indicated. (.); SPECIMEN SOURCE Urine (.); URINE STREP PNEUMONIAE ANTIGEN Negative (Negative)
[2018-05-23 00:09] LABS: MYCOPLASMA PNEUMONIAE IgG 321 U/mL (0-99); MYCOPLASMA PNEUMONIAE IgM <770 U/mL (0-769)
[2018-05-23 10:25] LABS: ASPERGILLUS FUMIGATUS AB Negative (Negative); AUREOBASIDIUM PULLULANS Negative (Negative); MICROPOLYSPORA FAENI AB Negative (Negative); PIGEON SERUM AB Positive (Negative); THERMOACTINOMYCES SACCHARI Negative (Negative); THERMOACTINOMYCES VULGARIS Negative (Negative)
== END 2018-05-21 11:15 | disposition home or self-care (01) | DRG 198 ==
LOC: M ED 23:33 → M ED INP 05-18 03:11 → M MSPAV 05-18 04:41
PROVIDERS: ADMIT Student in an Organized Health Care Education/Training Program; ATTEND Internal Medicine
DX: J67.9 Hypersensitivity pneumonitis due to unspecified organic dust (principal); G47.33 Obstructive sleep apnea (adult) (pediatric); I10 Essential (primary) hypertension; E11.9 Type 2 diabetes mellitus without complications; Z91.19 Patient's noncompliance with other medical treatment and regimen; Z79.899 Other long term (current) drug therapy; Z96.651 Presence of right artificial knee joint; R06.03 Acute respiratory distress

== ENCOUNTER → 2018-06-25 | Outpatient (REF) | payer MEDICARE ==
[~2018-06-25] MED LIST changes: +AMOX875T2 PO; +AZIT500T2 PO; +FISH7.5C PO; +LOSA50TA88 PO; +VENTAER INH; +VITMTA PO
[2018-06-25 13:28] LABS: BASO # 0.1 10^3/uL (0.0-0.2); BASO % 0.9 % (0.0-1.0); EOS # 0.3 10^3/uL (0.0-0.50); EOS % 3.9 % (0.0-3.0); HEMATOCRIT 47.9 % (42.0-52.0); HEMOGLOBIN 16.2 g/dl (13.5-17.5); LYMPH # 1.7 10^3/uL (1.5-4.5); LYMPH % 24.7 % (24.0-44.0); MEAN CORPUSCULAR HGB CONC 33.8 g/dl (32.0-36.5); MEAN CORPUSCULAR VOLUME 91.8 fl (80.0-96.0); MONO # 0.6 10^3/uL (0.0-0.8); MONO % 8.7 % (0.0-5.0); NEUTROPHILS # 4.2 10^3/uL (1.8-7.7); NEUTROPHILS % 61.5 % (36.0-66.0); PLATELET COUNT, AUTOMATED 200 10^3/uL (150-450); RED BLOOD COUNT 5.22 10^6/uL (4.30-6.10); WHITE BLOOD COUNT 6.8 10^3/uL (4.0-10.0)
[2018-06-25 13:42] LABS: ALBUMIN 3.9 GM/DL (3.2-5.2); ALT/SGPT 30 U/L (12-78); BILIRUBIN,TOTAL 1.4 MG/DL (0.2-1.0); BLOOD UREA NITROGEN 18 MG/DL (7-18); CALCIUM LEVEL 9.7 MG/DL (8.8-10.2); CARBON DIOXIDE LEVEL 28 MEQ/L (21-32); CHLORIDE LEVEL 107 MEQ/L (98-107); CHOLESTEROL LEVEL 150 MG/DL (<200); CHOLESTEROL RISK RATIO 4.545 (<5); CREATININE FOR GFR 0.87 MG/DL (0.70-1.30); FREE T4 1.13 NG/DL (0.76-1.46); GLOMERULAR FILTRATION RATE > 60.0 (>42); GLUCOSE, FASTING 99 MG/DL (70-100); HDL CHOLESTEROL 33 MG/DL (>40); LDL CHOLESTEROL 93 MG/DL (<100); NON-HDL-C 117 MG/DL; POTASSIUM SERUM 4.5 MEQ/L (3.5-5.1); SODIUM LEVEL 140 MEQ/L (136-145); TOTAL PROTEIN 7.2 GM/DL (6.4-8.2); TRIGLYCERIDES LEVEL 119 MG/DL (<150)
[2018-06-25 14:15] LABS: HEMOGLOBIN A1c 5.6 %
== END ==
LOC: M LABDRWAD 12:23
PROVIDERS: ATTEND Nurse Practitioner Adult Health
DX: R53.83 Other fatigue (principal); I10 Essential (primary) hypertension; E78.2 Mixed hyperlipidemia; Z79.899 Other long term (current) drug therapy

== ENCOUNTER → 2018-09-26 | Outpatient (REF) | payer MEDICARE ==
[~2018-09-26] MED LIST changes: -CALC12504 PO; +CALC500T61 PO
[2018-09-26 13:26] LABS: BASO % 0.6 % (0.0-1.0); EOS # 0.2 10^3/uL (0.0-0.50); EOS % 3.3 % (0.0-3.0); HEMATOCRIT 44.6 % (42.0-52.0); LYMPH # 1.4 10^3/uL (1.5-4.5); MEAN CORPUSCULAR HEMOGLOBIN 32.1 pg (27.0-33.0); MEAN CORPUSCULAR HGB CONC 33.6 g/dl (32.0-36.5); MEAN CORPUSCULAR VOLUME 95.5 fl (80.0-96.0); MONO # 0.5 10^3/uL (0.0-0.8); MONO % 10.2 % (0.0-5.0); NEUTROPHILS # 3.1 10^3/uL (1.8-7.7); NEUTROPHILS % 58.7 % (36.0-66.0); PLATELET COUNT, AUTOMATED 157 10^3/uL (150-450); RED BLOOD COUNT 4.67 10^6/uL (4.30-6.10); WHITE BLOOD COUNT 5.2 10^3/uL (4.0-10.0)
[2018-09-26 13:36] LABS: ALBUMIN 3.7 GM/DL (3.2-5.2); ALT/SGPT 24 U/L (12-78); BILIRUBIN,TOTAL 1.5 MG/DL (0.2-1.0); BLOOD UREA NITROGEN 26 MG/DL (7-18); CALCIUM LEVEL 8.7 MG/DL (8.8-10.2); CARBON DIOXIDE LEVEL 27 MEQ/L (21-32); CHLORIDE LEVEL 106 MEQ/L (98-107); CHOLESTEROL LEVEL 131 MG/DL (<200); CREATININE FOR GFR 0.91 MG/DL (0.70-1.30); FREE T4 0.91 NG/DL (0.76-1.46); GLOMERULAR FILTRATION RATE > 60.0 (>42); GLUCOSE, FASTING 86 MG/DL (70-100); HDL CHOLESTEROL 37 MG/DL (>40); LDL CHOLESTEROL 73 MG/DL (<100); NON-HDL-C 94 MG/DL; POTASSIUM SERUM 4.3 MEQ/L (3.5-5.1); SODIUM LEVEL 140 MEQ/L (136-145); TOTAL PROTEIN 7.1 GM/DL (6.4-8.2); TRIGLYCERIDES LEVEL 103 MG/DL (<150)
[2018-09-26 13:59] LABS: HEMOGLOBIN A1c 5.9 %
== END ==
LOC: M LABDRWAD 12:07
PROVIDERS: ATTEND Internal Medicine Cardiovascular Disease
DX: E11.65 Type 2 diabetes mellitus with hyperglycemia (principal); E78.00 Pure hypercholesterolemia, unspecified; Z79.899 Other long term (current) drug therapy; Z12.5 Encounter for screening for malignant neoplasm of prostate
CPT/HCPCS: 80053; 80061; 83036; 84439; 84443; 85027; G0103

== ENCOUNTER → 2018-10-28 | Outpatient (CLI) | payer MEDICARE, MEDICAID ==
[~2018-10-28] MED LIST changes: -AZIT500T2 PO; +AZIT500T5 PO; +METF-791 PO; -METF500T4 PO
--- NOTE | 2018-10-29 05:45 | REP ---
Clinical: History of hypersensitivity pneumonitis. Comparison: 05/18/2018. Technique: Axial noncontrast images from the thoracic inlet to the upper abdomen with coronal and sagittal re-formations. Findings: Mildly prominent interstitial changes and mild central peribronchial thickening is consistent with chronic changes related to hypersensitivity pneumonitis and chronic reactive airway disease. No focal consolidation, nodule or mass lesion. No pleural effusion. No pneumothorax. Tracheobronchial tree is patent. No obvious adenopathy. Thoracic aorta without aneurysm. Heart and pericardium are normal. Musculoskeletal structures intact and without focal abnormality. Limited upper abdomen demonstrates normal bilateral adrenal glands. Impression: 1. Mildly coarsened interstitial markings and mild central peribronchial thickening suggests chronic change related to reactive airway disease and/or hypersensitivity pneumonitis. 2. Previous patchy ground-glass opacities have resolved. Electronically Signed by Surinder Sanford MD 10/29/2018 05:37 A
== END ==
LOC: M RAD 13:09
PROVIDERS: ATTEND Internal Medicine Pulmonary Disease
DX: J67.8 Hypersensitivity pneumonitis due to other organic dusts (principal)

== ENCOUNTER → 2018-12-26 | Outpatient (CLI) | payer MEDICARE, MEDICAID ==
[2018-12-26 13:12] LABS: BASO # 0.1 10^3/uL (0.0-0.2); EOS # 0.3 10^3/uL (0.0-0.5); EOS % 3.9 % (0.0-3.0); HEMATOCRIT 48.2 % (42.0-52.0); HEMOGLOBIN 15.9 g/dl (13.5-17.5); LYMPH % 30.1 % (24.0-44.0); MEAN CORPUSCULAR HEMOGLOBIN 32.2 pg (27.0-33.0); MEAN CORPUSCULAR VOLUME 97.6 fl (80.0-96.0); MONO # 0.6 10^3/uL (0.0-0.8); MONO % 9.1 % (0.0-5.0); NEUTROPHILS # 3.7 10^3/uL (1.5-8.5); NEUTROPHILS % 55.8 % (36.0-66.0); PLATELET COUNT, AUTOMATED 167 10^3/uL (150-450); RED BLOOD COUNT 4.94 10^6/uL (4.30-6.10); WHITE BLOOD COUNT 6.7 10^3/uL (4.0-10.0)
[2018-12-26 13:47] LABS: ALT/SGPT 28 U/L (12-78); BLOOD UREA NITROGEN 19 MG/DL (7-18); CALCIUM LEVEL 8.9 MG/DL (8.8-10.2); CARBON DIOXIDE LEVEL 30 MEQ/L (21-32); CHLORIDE LEVEL 107 MEQ/L (98-107); CREATININE FOR GFR 0.91 MG/DL (0.70-1.30); GLOMERULAR FILTRATION RATE > 60.0 (>42); GLUCOSE, FASTING 102 MG/DL (70-100); POTASSIUM SERUM 4.6 MEQ/L (3.5-5.1); SODIUM LEVEL 143 MEQ/L (136-145)
[2018-12-26 13:48] LABS: ALBUMIN 3.6 GM/DL (3.2-5.2); BILIRUBIN,TOTAL 1.2 MG/DL (0.2-1.0); CHOLESTEROL LEVEL 138 MG/DL (<200); CHOLESTEROL RISK RATIO 4.058 (<5); HDL CHOLESTEROL 34 MG/DL (>40); LDL CHOLESTEROL 77 MG/DL (<100); NON-HDL-C 104 MG/DL; TOTAL PROTEIN 6.9 GM/DL (6.4-8.2); TRIGLYCERIDES LEVEL 136 MG/DL (<150)
[2018-12-26 14:46] LABS: HEMOGLOBIN A1c 5.6 %
== END ==
LOC: M LABDRWAD 09:50
PROVIDERS: ATTEND Nurse Practitioner Adult Health
DX: Z12.5 Encounter for screening for malignant neoplasm of prostate (principal); E11.65 Type 2 diabetes mellitus with hyperglycemia; E78.00 Pure hypercholesterolemia, unspecified; Z79.899 Other long term (current) drug therapy
CPT/HCPCS: 36415; 80053; 80061; 83036; 84439; 84443; 85027; G0103

== ENCOUNTER → 2019-04-07 | Outpatient (REF) | payer MEDICARE, MEDICAID ==
[2019-04-07 13:22] LABS: BASO # 0.1 10^3/uL (0.0-0.2); BASO % 1.4 % (0.0-1.0); EOS # 0.2 10^3/uL (0.0-0.5); EOS % 2.7 % (0.0-3.0); HEMATOCRIT 49.9 % (42.0-52.0); LYMPH # 2.4 10^3/uL (1.5-5.0); LYMPH % 32.6 % (24.0-44.0); MEAN CORPUSCULAR HEMOGLOBIN 32.3 pg (27.0-33.0); MEAN CORPUSCULAR HGB CONC 34.1 g/dl (32.0-36.5); MEAN CORPUSCULAR VOLUME 94.9 fl (80.0-96.0); MONO # 0.8 10^3/uL (0.0-0.8); MONO % 10.3 % (0.0-5.0); NEUTROPHILS # 3.9 10^3/uL (1.5-8.5); NEUTROPHILS % 52.6 % (36.0-66.0); PLATELET COUNT, AUTOMATED 183 10^3/uL (150-450); RED BLOOD COUNT 5.26 10^6/uL (4.30-6.10); WHITE BLOOD COUNT 7.3 10^3/uL (4.0-10.0)
[2019-04-07 13:38] LABS: ALBUMIN 3.9 GM/DL (3.2-5.2); ALT/SGPT 31 U/L (12-78); BILIRUBIN,TOTAL 1.6 MG/DL (0.2-1.0); BLOOD UREA NITROGEN 21 MG/DL (7-18); CALCIUM LEVEL 9.6 MG/DL (8.8-10.2); CARBON DIOXIDE LEVEL 32 MEQ/L (21-32); CHLORIDE LEVEL 106 MEQ/L (98-107); CHOLESTEROL LEVEL 166 MG/DL (<200); CREATININE FOR GFR 1.08 MG/DL (0.70-1.30); FREE T4 1.04 NG/DL (0.76-1.46); GLOMERULAR FILTRATION RATE > 60.0 (>42); GLUCOSE, FASTING 114 MG/DL (70-100); HDL CHOLESTEROL 33 MG/DL (>40); LDL CHOLESTEROL 107 MG/DL (<100); NON-HDL-C 133 MG/DL; POTASSIUM SERUM 4.7 MEQ/L (3.5-5.1); SODIUM LEVEL 142 MEQ/L (136-145); TRIGLYCERIDES LEVEL 128 MG/DL (<150)
== END ==
LOC: M LABDRWAD 12:26
PROVIDERS: ATTEND Nurse Practitioner Adult Health
DX: E11.65 Type 2 diabetes mellitus with hyperglycemia (principal); E78.00 Pure hypercholesterolemia, unspecified; Z79.899 Other long term (current) drug therapy

== ENCOUNTER → 2019-07-10 | Outpatient (REF) | payer MEDICARE ==
[~2019-07-10] MED LIST changes: -METF-791 PO; +METF-838 PO
[2019-07-10 13:31] LABS: ALBUMIN 3.8 GM/DL (3.2-5.2); ALT/SGPT 32 U/L (12-78); BILIRUBIN,TOTAL 2.1 MG/DL (0.2-1.0); BLOOD UREA NITROGEN 23 MG/DL (7-18); CALCIUM LEVEL 8.8 MG/DL (8.8-10.2); CARBON DIOXIDE LEVEL 29 MEQ/L (21-32); CHLORIDE LEVEL 108 MEQ/L (98-107); CHOLESTEROL LEVEL 143 MG/DL (<200); CHOLESTEROL RISK RATIO 4.766 (<5); CREATININE FOR GFR 0.97 MG/DL (0.70-1.30); FREE T4 1.01 NG/DL (0.76-1.46); GLOMERULAR FILTRATION RATE > 60.0 (>42); GLUCOSE, FASTING 110 MG/DL (70-100); HDL CHOLESTEROL 30 MG/DL (>40); LDL CHOLESTEROL 88 MG/DL (<100); MAGNESIUM LEVEL 2.1 MG/DL (1.8-2.4); NON-HDL-C 113 MG/DL; POTASSIUM SERUM 4.7 MEQ/L (3.5-5.1); SODIUM LEVEL 143 MEQ/L (136-145); TOTAL PROTEIN 7.1 GM/DL (6.4-8.2); TRIGLYCERIDES LEVEL 127 MG/DL (<150)
[2019-07-10 13:33] LABS: BASO # 0.1 10^3/uL (0.0-0.2); BASO % 0.9 % (0.0-1.0); EOS # 0.2 10^3/uL (0.0-0.5); HEMATOCRIT 45.9 % (42.0-52.0); HEMOGLOBIN 15.8 g/dl (13.5-17.5); LYMPH % 29.5 % (24.0-44.0); MEAN CORPUSCULAR HEMOGLOBIN 32.8 pg (27.0-33.0); MEAN CORPUSCULAR HGB CONC 34.4 g/dl (32.0-36.5); MEAN CORPUSCULAR VOLUME 95.2 fl (80.0-96.0); MONO # 0.6 10^3/uL (0.0-0.8); MONO % 9.1 % (0.0-5.0); NEUTROPHILS # 3.8 10^3/uL (1.5-8.5); NEUTROPHILS % 57.2 % (36.0-66.0); PLATELET COUNT, AUTOMATED 190 10^3/uL (150-450); RED BLOOD COUNT 4.82 10^6/uL (4.30-6.10); WHITE BLOOD COUNT 6.6 10^3/uL (4.0-10.0)
[2019-07-10 14:12] LABS: HEMOGLOBIN A1c 5.8 %
== END ==
LOC: M LABDRWAD 12:34
PROVIDERS: ATTEND Nurse Practitioner Adult Health
DX: Z51.81 Encounter for therapeutic drug level monitoring (principal); Z79.899 Other long term (current) drug therapy; E11.65 Type 2 diabetes mellitus with hyperglycemia; E78.00 Pure hypercholesterolemia, unspecified; E55.9 Vitamin D deficiency, unspecified

== ENCOUNTER → 2019-10-09 | Outpatient (REF) | payer MEDICARE, MEDICAID ==
[2019-10-09 14:40] LABS: BASO % 0.6 % (0.0-1.0); EOS # 0.2 10^3/uL (0.0-0.5); EOS % 2.8 % (0.0-3.0); HEMATOCRIT 46.1 % (42.0-52.0); HEMOGLOBIN 15.5 g/dl (13.5-17.5); LYMPH % 29.2 % (24.0-44.0); MEAN CORPUSCULAR HEMOGLOBIN 32.5 pg (27.0-33.0); MEAN CORPUSCULAR HGB CONC 33.6 g/dl (32.0-36.5); MEAN CORPUSCULAR VOLUME 96.6 fl (80.0-96.0); MONO # 0.6 10^3/uL (0.0-0.8); MONO % 8.2 % (0.0-5.0); NEUTROPHILS % 58.8 % (36.0-66.0); PLATELET COUNT, AUTOMATED 156 10^3/uL (150-450); RED BLOOD COUNT 4.77 10^6/uL (4.30-6.10); WHITE BLOOD COUNT 6.7 10^3/uL (4.0-10.0)
[2019-10-09 14:53] LABS: ALT/SGPT 25 U/L (12-78); BILIRUBIN,TOTAL 0.8 MG/DL (0.2-1.0); BLOOD UREA NITROGEN 20 MG/DL (7-18); CALCIUM LEVEL 9.1 MG/DL (8.8-10.2); CARBON DIOXIDE LEVEL 30 MEQ/L (21-32); CHLORIDE LEVEL 105 MEQ/L (98-107); CHOLESTEROL LEVEL 142 MG/DL (<200); CHOLESTEROL RISK RATIO 4.176 (<5); CREATININE FOR GFR 0.91 MG/DL (0.70-1.30); FREE T4 1.05 NG/DL (0.76-1.46); GLOMERULAR FILTRATION RATE > 60.0 (>42); GLUCOSE, FASTING 102 MG/DL (70-100); HDL CHOLESTEROL 34 MG/DL (>40); LDL CHOLESTEROL 91 MG/DL (<100); NON-HDL-C 108 MG/DL; POTASSIUM SERUM 4.6 MEQ/L (3.5-5.1); SODIUM LEVEL 139 MEQ/L (136-145); TOTAL PROTEIN 7.1 GM/DL (6.4-8.2); TRIGLYCERIDES LEVEL 85 MG/DL (<150)
[2019-10-09 16:46] LABS: HEMOGLOBIN A1c 5.9 %
== END ==
LOC: M LABDRWAD 13:01
PROVIDERS: ATTEND Nurse Practitioner Adult Health
DX: E11.65 Type 2 diabetes mellitus with hyperglycemia (principal); E78.00 Pure hypercholesterolemia, unspecified; Z79.899 Other long term (current) drug therapy; Z12.5 Encounter for screening for malignant neoplasm of prostate
CPT/HCPCS: 36415; 80053; 80061; 82652; 83036; 83735; 84439; 84443; 85025; G0103

== ENCOUNTER → 2020-03-01 | Outpatient (REF) | payer MEDICARE, MEDICAID ==
[2020-03-01 13:55] LABS: BASO # 0.1 10^3/uL (0.0-0.2); BASO % 0.7 % (0.0-1.0); EOS # 0.2 10^3/uL (0.0-0.5); EOS % 3.3 % (0.0-3.0); HEMATOCRIT 43.9 % (42.0-52.0); HEMOGLOBIN 14.9 g/dl (13.5-17.5); LYMPH # 1.6 10^3/uL (1.5-5.0); LYMPH % 22.3 % (24.0-44.0); MEAN CORPUSCULAR HEMOGLOBIN 31.9 pg (27.0-33.0); MEAN CORPUSCULAR HGB CONC 33.9 g/dl (32.0-36.5); MONO # 0.6 10^3/uL (0.0-0.8); MONO % 7.9 % (0.0-5.0); NEUTROPHILS # 4.8 10^3/uL (1.5-8.5); NEUTROPHILS % 65.3 % (36.0-66.0); PLATELET COUNT, AUTOMATED 156 10^3/uL (150-450); RED BLOOD COUNT 4.67 10^6/uL (4.30-6.10); WHITE BLOOD COUNT 7.3 10^3/uL (4.0-10.0)
[2020-03-01 14:38] LABS: ALBUMIN 4.1 GM/DL (3.2-5.2); ALT/SGPT 28 U/L (12-78); BILIRUBIN,TOTAL 1.2 MG/DL (0.2-1.0); BLOOD UREA NITROGEN 22 MG/DL (7-18); CALCIUM LEVEL 9.5 MG/DL (8.8-10.2); CARBON DIOXIDE LEVEL 30 MEQ/L (21-32); CHLORIDE LEVEL 107 MEQ/L (98-107); CHOLESTEROL LEVEL 142 MG/DL (<200); CHOLESTEROL RISK RATIO 3.944 (<5); CREATININE FOR GFR 0.88 MG/DL (0.70-1.30); FREE T4 0.97 NG/DL (0.76-1.46); GLOMERULAR FILTRATION RATE > 60.0 (>42); GLUCOSE, FASTING 103 MG/DL (70-100); HDL CHOLESTEROL 36 MG/DL (>40); LDL CHOLESTEROL 77 MG/DL (<100); MAGNESIUM LEVEL 1.7 MG/DL (1.8-2.4); NON-HDL-C 106 MG/DL; SODIUM LEVEL 143 MEQ/L (136-145); TOTAL PROTEIN 6.6 GM/DL (6.4-8.2); TRIGLYCERIDES LEVEL 147 MG/DL (<150)
[2020-03-01 15:44] LABS: HEMOGLOBIN A1c 5.7 %
== END ==
LOC: M LABDRWAD 12:26
PROVIDERS: ATTEND Nurse Practitioner Adult Health
DX: Z00.01 Encounter for general adult medical examination with abnormal findings (principal); E11.65 Type 2 diabetes mellitus with hyperglycemia; E78.00 Pure hypercholesterolemia, unspecified; Z79.899 Other long term (current) drug therapy; E55.9 Vitamin D deficiency, unspecified; Z12.5 Encounter for screening for malignant neoplasm of prostate
CPT/HCPCS: 36415; 80053; 80061; 82652; 83036; 83735; 84439; 84443; 85025; G0103

== ENCOUNTER → 2020-05-31 | Outpatient (REF) | payer MEDICARE, MEDICAID ==
[2020-05-31 12:46] LABS: BASO # 0.1 10^3/uL (0.0-0.2); BASO % 1.1 % (0.0-1.0); EOS # 0.2 10^3/uL (0.0-0.5); EOS % 2.1 % (0.0-3.0); HEMATOCRIT 48.2 % (42.0-52.0); HEMOGLOBIN 16.1 g/dl (13.5-17.5); LYMPH % 27.2 % (24.0-44.0); MEAN CORPUSCULAR HEMOGLOBIN 31.9 pg (27.0-33.0); MEAN CORPUSCULAR HGB CONC 33.4 g/dl (32.0-36.5); MEAN CORPUSCULAR VOLUME 95.4 fl (80.0-96.0); MONO # 0.8 10^3/uL (0.0-0.8); NEUTROPHILS # 4.5 10^3/uL (1.5-8.5); NEUTROPHILS % 59.5 % (36.0-66.0); PLATELET COUNT, AUTOMATED 174 10^3/uL (150-450); RED BLOOD COUNT 5.05 10^6/uL (4.30-6.10); WHITE BLOOD COUNT 7.5 10^3/uL (4.0-10.0)
[2020-05-31 13:24] LABS: ALBUMIN 3.8 GM/DL (3.2-5.2); ALT/SGPT 25 U/L (12-78); BLOOD UREA NITROGEN 20 MG/DL (7-18); CALCIUM LEVEL 9.3 MG/DL (8.8-10.2); CARBON DIOXIDE LEVEL 31 MEQ/L (21-32); CHLORIDE LEVEL 110 MEQ/L (98-107); CHOLESTEROL LEVEL 146 MG/DL (<200); CHOLESTEROL RISK RATIO 4.171 (<5); CREATININE FOR GFR 0.98 MG/DL (0.70-1.30); FREE T4 1.11 NG/DL (0.76-1.46); GLOMERULAR FILTRATION RATE > 60.0 (>42); GLUCOSE, FASTING 107 MG/DL (70-100); HDL CHOLESTEROL 35 MG/DL (>40); LDL CHOLESTEROL 94 MG/DL (<100); NON-HDL-C 111 MG/DL; POTASSIUM SERUM 4.6 MEQ/L (3.5-5.1); SODIUM LEVEL 145 MEQ/L (136-145); TOTAL 25(OH) VITAMIN D 54.7 NG/ML (30.0-100.0); TRIGLYCERIDES LEVEL 85 MG/DL (<150)
[2020-05-31 14:09] LABS: HEMOGLOBIN A1c 5.7 %
== END ==
LOC: M LABDRWAD 12:18
PROVIDERS: ATTEND Nurse Practitioner Adult Health
DX: E11.65 Type 2 diabetes mellitus with hyperglycemia (principal); E78.00 Pure hypercholesterolemia, unspecified; Z79.899 Other long term (current) drug therapy; Z00.01 Encounter for general adult medical examination with abnormal findings; E55.9 Vitamin D deficiency, unspecified

== ENCOUNTER 2020-08-17 16:25 | Observation (INO) | payer MEDICARE, MEDICAID ==
[~2020-08-17] VITALS: Ht 167.6 cm; Wt 110.4 kg
[2020-08-17] MEDS ORDERED: LEVO50TA5 PO (16:43)
[2020-08-17] MEDS ORDERED: METOPROLOL TART 50 MG TAB PO ONE (17:10)
[2020-08-17] MEDS: NS 1,000 ML IV SCH (17:18)
[2020-08-17] MEDS: METOPROLOL 5 MG/5 ML VIAL IV SCH ×3 (17:23→17:39)
[2020-08-17 17:56] LABS: BASO # 0.1 10^3/uL (0.0-0.2); BASO % 0.6 % (0.0-1.0); EOS # 0.1 10^3/uL (0.0-0.5); EOS % 1.5 % (0.0-3.0); HEMATOCRIT 44.3 % (42.0-52.0); HEMOGLOBIN 15.1 g/dl (13.5-17.5); LYMPH % 20.9 % (24.0-44.0); MEAN CORPUSCULAR HEMOGLOBIN 32.1 pg (27.0-33.0); MEAN CORPUSCULAR HGB CONC 34.1 g/dl (32.0-36.5); MEAN CORPUSCULAR VOLUME 94.3 fl (80.0-96.0); MONO # 0.9 10^3/uL (0.0-0.8); MONO % 9.1 % (2.0-8.0); NEUTROPHILS # 6.3 10^3/uL (1.5-8.5); NEUTROPHILS % 67.6 % (36.0-66.0); PLATELET COUNT, AUTOMATED 193 10^3/uL (150-450); WHITE BLOOD COUNT 9.4 10^3/uL (4.0-10.0)
[2020-08-17 18:06] LABS: INR 1.01; PROTHROMBIN TIME 13.5 SECONDS (12.5-14.3)
[2020-08-17 18:19] LABS: RSV AMPLIFICATION NEGATIVE (NEGATIVE)
--- NOTE | 2020-08-17 18:28 | REP ---
INDICATION: CHEST PAIN. COMPARISON: Comparison portable chest x-ray May 18, 2018. TECHNIQUE: Portable upright AP chest radiograph. FINDINGS: EKG electrodes are seen. The lungs are symmetrically aerated and free of infiltrate. The pleural angles are sharp. Pulmonary vasculature is not increased. No significant bony abnormality is seen.. IMPRESSION: No active disease. <Electronically signed by Davon Stroud > 08/17/20 [id number]
--- NOTE | 2020-08-17 18:31 | REP ---
INDICATION: pain swelling. COMPARISON: Comparison left knee radiographs are from May 13, 2012.. TECHNIQUE: Four views of the left knee are provided, AP, lateral, and oblique projections. FINDINGS: Four views of the left knee demonstrate advanced osteoarthritis in the medial compartment with joint space narrowing, chondrocalcinosis, spur formation, and sclerosis. There is mild spurring in the lateral compartment. Patellofemoral narrowing and spur formation is seen. There is non articular spurring at the superior pole of the patella and inferior pole of the patella at the quadriceps in patellar tendon insertion sites respectively. Mild suprapatellar soft tissue swelling is seen. There is soft tissue swelling in the region of the suprapatellar bursa indicating a joint effusion. No fracture is seen. No acute bony abnormality is observed. The osteoarthritic changes are slightly more prominent than on the 2013 prior study.. . No opaque foreign body noted. IMPRESSION: Moderate to advanced 3 compartment osteoarthritis most pronounced in the medial and patellofemoral compartment. Probable joint effusion. Soft tissue swelling in the suprapatellar soft tissues. No fracture or other acute bony abnormality.. <Electronically signed by Davon Stroud > 08/17/20 [id number]
--- NOTE | 2020-08-17 18:38 | REP ---
INDICATION: pain swelling. COMPARISON: None. TECHNIQUE: Four views of the right wrist are provided. FINDINGS: Four views of the right wrist demonstrate intercarpal joint osteoarthritis and distal radioulnar joint osteoarthritis. There is mild chondrocalcinosis in the region of the triangular fibrocartilage. Osteoarthritic changes are most pronounced at the 1st carpometacarpal and at the lunocapitate articulations. No erosive changes seen. No fracture is noted. Soft tissues are unremarkable. IMPRESSION: Moderate intercarpal and distal radioulnar joint osteoarthritic changes. <Electronically signed by Davon Stroud > 08/17/20 [id number]
[2020-08-17 19:12] LABS: ALBUMIN 3.5 GM/DL (3.2-5.2); ALT/SGPT 21 U/L (12-78); BILIRUBIN,DIRECT 0.4 MG/DL (0.0-0.2); BILIRUBIN,TOTAL 1.6 MG/DL (0.2-1.0); BLOOD UREA NITROGEN 17 MG/DL (7-18); CALCIUM LEVEL 9.3 MG/DL (8.8-10.2); CARBON DIOXIDE LEVEL 28 MEQ/L (21-32); CHLORIDE LEVEL 107 MEQ/L (98-107); CK-MB VALUE MASS < 1.0 NG/ML (<3.6); CPK CREATINE PHOSPHOKINASE 92 U/L (39-308); CREATININE FOR GFR 1.07 MG/DL (0.70-1.30); FREE THYROXINE INDEX 2.8 % (1.4-3.8); GLOMERULAR FILTRATION RATE > 60.0 (>42); GLUCOSE, FASTING 99 MG/DL (70-100); LIPASE 89 U/L (73-393); MB/CK RELATIVE INDEX 1.09 (< OR =4); NT-PRO BNP 451 PG/ML (<125); POTASSIUM SERUM 4.2 MEQ/L (3.5-5.1); SODIUM LEVEL 140 MEQ/L (136-145); T UPTAKE 34 % (33-40); THYROXINE (T4) 8.2 UG/DL (4.5-12.0); TOTAL PROTEIN 7.1 GM/DL (6.4-8.2); TROPONIN I < 0.02 NG/ML (< 0.10)
[2020-08-17] MEDS ORDERED: D31000TA2 PO (19:50)
[2020-08-17] MEDS ORDERED: LEVO25TA34 PO (19:50)
[2020-08-17] MEDS ORDERED: GABA-282 PO (19:50)
[2020-08-17] MEDS ORDERED: CALC600T86 PO (19:50)
--- NOTE | 2020-08-17 20:17 | ECGEPIP ---
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
[2020-08-17] MEDS: HumaLOG INSULIN (NovoLOG) PER UNIT SC SCH (21:00)
[2020-08-17] MEDS ORDERED: ACETAMINOPHEN TAB 650MG DOSE (2X325MG) PO PRN (21:05)
[2020-08-17] MEDS ORDERED: DEXTROSE 50% 50 ML SYRINGE IV PRN (21:05)
[2020-08-17] MEDS ORDERED: GLUCAGON INJ 1MG VIAL SC PRN (21:05)
[2020-08-17] MEDS ORDERED: MOM 30ML SUSPENSION UDC PO PRN (21:05)
[2020-08-17] MEDS ORDERED: GLUCOSE 4GM CHEW TABLET PO PRN (21:05)
[2020-08-17] MEDS ORDERED: MAALOX 30 ML SUSP *UDC PO PRN (21:05)
--- NOTE | 2020-08-17 21:12 | HPEPDOC ---
[facility] Medical History & Physical Date of Admission Aug 17, 2020 Date of Service: Aug 17, 2020 Primary Care Physician: SUMMER RANDHAWA PA-C Attending Physician: Jens Randhawa MD History and Physical TIME OF SERVICE: 9:41 PM CHIEF COMPLAINT: Sent from PCPs office HISTORY OF PRESENT ILLNESS: Mr. Zaragoza, a 75-year-old gentleman, initially presented to his PCPs office with complaints of right elbow pain along with te development of scabs on the right elbow off and on for several weeks. A few days ago he also noticed that his left knee was stiff and difficult to move and that he had severe pain at the left medial upper thigh. He denied falling or sustaining any trauma to his body. During the initial assessment his PCP noted that the patient was in rapid A. fib, so she sent him over to the ER for evaluation. His initial EKG confirmed rapid A. fib which was managed with IV metoprolol tartrate and oral metoprolol tartrate. At the time of my evaluation he was no longer tachycardic and denied having chest pain or shortness of breath. 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 FAMILY HISTORY: Both his parents are . His father had a heart attack hypertension and a CVA. His mother had renal failure congestive heart failure heart attack and diabetes. His siblings have had ESRD diabetes COPD liver cancer cerebral palsy hypertension and dyslipidemia. ALLERGIES: Please see below. HOME MEDICATIONS: Please see below. PHYSICAL EXAMINATION: Vital Signs Date Time Temp Pulse Resp B/P (MAP) Pulse Ox O2 Delivery O2 Flow Rate FiO2 08/17/20 16:36 136/68 (90) 08/17/20 16:37 98.1 117 18 98 Room Air GEN: well-nourished / well developed/ NAD /Pickwickian habitus INTEGUMENT: not flushed/ not jaundice HEENT: lips acyanotic /mucus membranes moist and pink / sclera anicteric CVS: Heart rate irregularly irregular but the rate is under 100/NMRG/his neck is short therefore it is difficult to assess for JVP / no lower extremity edema LUNGS: lungs are clear to auscultation bilaterally on room air ABDOMEN: Contour ( obese) / soft & not tender with palpation MSK/EXTREMITIES: normocephalic / atraumatic NEURO: CN 2-12 are grossly intact / speech is not dysarthric PSYCH: alert and oriented to person place and time/ able to understand and follow all commands EKG: Atrial fibrillation with a rate of 101 LABORATORY DATA: IMAGING: Chest x-ray IMPRESSION: No active disease. Left knee x-ray IMPRESSION: Moderate to advanced 3 compartment osteoarthritis most pronounced in the medial and patellofemoral compartment. Probable joint effusion. Soft tissue swelling in the suprapatellar soft tissues. No fracture or other acute bony abnormality. Wrist x-ray IMPRESSION: Moderate intercarpal and distal radioulnar joint osteoarthritic changes. MICROBIOLOGY: COVID-19 influenza and RSV are negative ASSESSMENT: Mr. Zaragoza is a 75-year-old with a history of HTN, NIDDM, RJ, osteoarthritis, hypothyroidism & obesity who is admitted for management of new A. fib. PLAN: 1 New onset Atrial Fibrillation He has several risk factors for developing atrial fibrillation including sleep apnea and noncompliance with CPAP, HTN & obesity His CHADS VASC Score to determine risk of stroke is 3. He denied having a history of upper or lower GI bleed therefore I did calculate his HAS BLED Score. We discussed the risks versus benefits of anticoagulation and he decided that he prefers to be on anticoagulation. Plan: admit to PCU / telemetry / f/u d-dimer, serial Trops to r/o UT & Mag / c/w Metoprolol tartrate (based on the results of the RACE trail will aim for a HR <110) / start weight based Lovenox pending Echo to r/o mitral valvulopathy or rheumatic heart disease prior to transitioning to DOAC or Warfarin /I informed h im that the trigger is likely his untreated RJ;he can follow-up with his PCP to repeat a sleep study in the near future if he desires to do so 2 Left knee pain and stiffness likely due to osteoarthritis and joint effusion He does not meet SIRS criteria therefore I doubt this is a septic joint Plan: The daytime team may consider consulting orthopedics in the morning for diagnostic and therapeutic arthrocentesis plus or minus Kenalog and lidocaine injection. I will order Flector patch for the pain tonight. 3 Right elbow pain Plan: Follow-up right elbow x-ray /acetaminophen 4 Essential hypertension Plan: Losartan 5 NIDDM Complicated by neuropathy? 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 fib DISPOSITION: home after less than than 2 midnight's stay LATE ENTRY #Elevated D-dimer Because the d-dimer is greater than his age adjusted cut off (730) & his Well's Score for PE is 3 (moderate risk). We will order a CTA to r/o PE (which can also trigger new onset Afib). Home Medications Scheduled Calcium Carbonate (Calcium Carbonate) 600 Mg Tablet, 600 MG PO BID Cholecalciferol (Vitamin D3) (Vitamin D3) 1,000 Unit Tablet, 1,000 UNITS PO DAILY Gabapentin (Gabapentin) 300 Mg Capsule, 300 MG PO TID Levothyroxine Sodium (Levoxyl) 25 Mcg Tablet, 25 MCG PO DAILY PT HAS BEEN OUT OF MEDICATION FOR ABOUT 1 MONTH Losartan Potassium (Losartan Potassium) 50 Mg Tab, 50 MG PO DAILY Metformin HCl (Metformin HCl ER) 500 Mg Tab, 500 MG PO BID Multivitamins (Thera M Plus Tablet) 1 Tab Tab, 1 TAB PO DAILY [place]-3/Dha/Epa/Fish Oil (Fish Oil EC 1,000 mg Softgel) 1 Cap Cap, 1,000 MG PO BID MORNING AND NOON Polyethylene Glycol 3350 (Miralax) 1 Pow Pow, 17 GM PO DAILY Scheduled PRN Naproxen (Naprosyn) 500 Mg Tab, 500 MG PO BID PRN for PAIN Allergies Coded Allergies: Sulfa (Sulfonamide Antibiotics) (Verified Allergy, Mild, RASH, 05/18/18) meloxicam (Verified Adverse Reaction, Mild, NV, 05/18/18) A-FIB/CHADSVASC A-FIB History Current/History of A-Fib/PAF?: Yes Current PO Anticoag Therapy: No Treatment Treatment ordered: Other Other anticoagulant ordered: treatment dose loverosendox MILADIS SANTANA MD Aug 17, 2020 21:12
[2020-08-17 21:25] LABS: D-DIMER QUANT 1872.77 ng/ml (<500)
[2020-08-17 21:27] LABS: MAGNESIUM LEVEL 2.1 MG/DL (1.8-2.4)
[2020-08-17] MEDS: LIDOCAINE 5% (LIDODERM) PATCH TD SCH (22:39)
[2020-08-17] MEDS: GABAPENTIN 300 MG CAP PO SCH (22:39)
[2020-08-17] MEDS ORDERED: ENOXAPARIN 120MG/0.8ML SYRINGE (J1650 PER 10MG) SC SCH (23:00)
[2020-08-17] MEDS: DICLOFENAC EPOLAMINE 1.3 % PATCH TOP SCH (23:02)
[2020-08-18] MEDS: NS 1,000 ML IV SCH (03:10)
[2020-08-18] MEDS: LEVOTHYROXINE 25MCG TABLET (0.025MG) PO SCH (06:06)
[2020-08-18] MEDS ORDERED: ISOVUE-370 76% 100ML VIAL As Ordered ONE (06:52)
--- NOTE | 2020-08-18 07:52 | REP ---
INDICATION: right elbow pain. COMPARISON: Comparison right elbow radiographs are from April 19, 2010.. TECHNIQUE: Four views. FINDINGS: Four views of the right elbow demonstrate a metallic pin and figure of [address] in the proximal ulna. There are 2 screw plate fixation device is and 2 separate metallic fixation screws in the distal humerus. Patient status post open reduction internal fixation of a complex elbow fracture. There is a large os ossific body adjacent to the olecranon and a small ossicle is seen superior to this on the lateral radiograph posteriorly. There is evidence of ulnotrochlear and radiocapitellar osteoarthritic spurring. No acute bony abnormality.. . . IMPRESSION: Post screw plate and wire fixation distal humeral and proximal ulnar fractures. 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 No acute bony abnormality.. <Electronically signed by Davon Stroud > 08/18/20 0722
[2020-08-18 08:00] VITALS: BP 112/58
--- NOTE | 2020-08-18 08:04 | REPVR ---
PROCEDURE INFORMATION: Exam: CTA Chest With Contrast Exam date and time: 08/18/2020 7:25 AM Age: 75 years old Clinical indication: Other: Afib; Additional info: New onset a afib/ reduced mobility / R/O pe TECHNIQUE: Imaging protocol: Computed tomographic angiography of the chest with contrast. 3D rendering (Not supervised by radiologist): MIP and/or 3D reconstructed images were created by the technologist. Radiation optimization: All CT scans at this facility use at least one of these dose optimization techniques: automated exposure control; mA and/or kV adjustment per patient size (includes targeted exams where dose is matched to clinical indication); or iterative reconstruction. Contrast material: ISOVUE 370; Contrast volume: 75 ml; Contrast route: INTRAVENOUS (IV); COMPARISON: CT ANGIO CHEST 05/18/2018 1:46 AM FINDINGS: Pulmonary arteries: Normal. No pulmonary emboli. Aorta: Atherosclerotic disease of the thoracic aorta. Lungs: Stable 7 mm pulmonary nodule the right lower lobe. Mild interstitial pulmonary edema. Pleural spaces: Unremarkable. No pneumothorax. No pleural effusion. Heart: Mild atherosclerotic of the coronary arteries. Cardiomegaly. Lymph nodes: Unremarkable. No enlarged lymph nodes. Kidneys and ureters: Partially visualized left hydronephrosis. Bones/joints: Multilevel degenerative disease of the thoracic spine. Soft tissues: Fat containing Bochdalek hernia. IMPRESSION: No acute pulmonary embolic disease. Mild interstitial pulmonary edema. Partially visualized left hydronephrosis. Electronically signed by: Jonah Preston On 08/18/2020 08:03:45 AM
[2020-08-18] MEDS: **NOTE PATIENT COMMENT** MISC XX SCH (09:00)
[2020-08-18 09:07] LABS: BASO # 0.1 10^3/uL (0.0-0.2); BASO % 0.7 % (0.0-1.0); EOS # 0.2 10^3/uL (0.0-0.5); EOS % 2.3 % (0.0-3.0); HEMATOCRIT 41.2 % (42.0-52.0); LYMPH % 27.6 % (24.0-44.0); MEAN CORPUSCULAR HEMOGLOBIN 31.9 pg (27.0-33.0); MEAN CORPUSCULAR VOLUME 93.8 fl (80.0-96.0); MONO # 0.4 10^3/uL (0.0-0.8); MONO % 5.5 % (2.0-8.0); NEUTROPHILS # 4.5 10^3/uL (1.5-8.5); NEUTROPHILS % 63.1 % (36.0-66.0); PLATELET COUNT, AUTOMATED 165 10^3/uL (150-450); RED BLOOD COUNT 4.39 10^6/uL (4.30-6.10); WHITE BLOOD COUNT 7.1 10^3/uL (4.0-10.0)
[2020-08-18 09:24] LABS: BLOOD UREA NITROGEN 16 MG/DL (7-18); C REACTIVE PROTEIN QUANTITATIV 6.08 MG/DL (0.00-0.30); CALCIUM LEVEL 8.5 MG/DL (8.8-10.2); CARBON DIOXIDE LEVEL 25 MEQ/L (21-32); CHLORIDE LEVEL 111 MEQ/L (98-107); CREATININE FOR GFR 0.96 MG/DL (0.70-1.30); GLOMERULAR FILTRATION RATE > 60.0 (>42); GLUCOSE, FASTING 108 MG/DL (70-100); POTASSIUM SERUM 3.7 MEQ/L (3.5-5.1); RHEUMATOID FACTOR QUANT 10.9 IU/ML (<15.0); SODIUM LEVEL 144 MEQ/L (136-145); TROPONIN I < 0.02 NG/ML (< 0.10)
[2020-08-18] MEDS: HumaLOG INSULIN (NovoLOG) PER UNIT SC SCH ×4 (09:40→21:00)
[2020-08-18] MEDS: MIRALAX *UNIT DOSE* 17GM PACKET PO SCH (09:40)
[2020-08-18] MEDS: VITAMIN D 1,000 INTERNATIONAL UNITS TABLET PO SCH (09:40)
[2020-08-18] MEDS: GABAPENTIN 300 MG CAP PO SCH ×3 (09:40→21:15)
[2020-08-18] MEDS: METOPROLOL TART 25 MG TABLET PO SCH ×2 (09:40→21:15)
[2020-08-18] MEDS: LOSARTAN 50MG TABLET PO SCH (09:41)
--- NOTE | 2020-08-18 10:12 | IPN ---
PROGRESS NOTE DATE: 08/18/2020 SUBJECTIVE: Sean is seen in the ER. He had an echocardiogram. When I saw him he was admitted with atrial fibrillation, rapid ventricular response, recently diagnosed yesterday when he presented to begin primary care with GRECIA Santiago at the [facility]. He was not known to have atrial fibrillation but he was in atrial fibrillation with rapid ventricular response upon arrival. He is noncompliant with his CPAP which might be a contributing factor. He also noted that he had swelling of his left knee that started a few weeks ago, got quite a bit worse over the August 14 weekend to the point where he could not walk on it or bend it, and it interfered with his ambulation. He did have a possible insect bite in the back of his right thigh just above the popliteal area a few weeks ago. He was not sure if it was a tick. He has a history of hypertensive heart disease, Type 2 diabetes, RJ, noncompliant with CPAP, hypothyroidism, renal stones, and arthritis. PHYSICAL EXAMINATION: VITAL SIGNS: Blood pressure 121/65, heart rate is between 90 and 113, 98.8 degrees. GENERAL APPEARANCE: He is alert, conversant, in no distress. NECK: Thick neck, narrow airway. LUNGS: Clear. HEART: Irregular rate and rhythm. There is a 1/6 systolic ejection murmur. ABDOMEN: Soft, nontender, obese, no masses. EXTREMITIES: Trace peripheral edema. Left knee has a palpable effusion, it is not warm or red. The right wrist is swollen as well, mildly tender. No warmth or redness. LABORATORY DATA: CBC is unremarkable. White count is 7.1. Sodium is 144, potassium is 3.7, BUN is 16, creatinine 0.9. BNP was only __. C-reactive protein is 6.0. Rheumatoid factor is 10.9. DOMONIQUE is pending. Lyme test is pending. CT angiogram showed some interstitial pulmonary edema and no pulmonary embolism. Stable right lower lobe 7 mm nodule, unchanged from 05/18/2018. IMPRESSION: 1. Atrial fibrillation with rapid ventricular response. Heart rate has come down, he is currently on metoprolol 25 mg b.i.d. with adequate control of his heart rate which he was on Lovenox overnight, we are switching to Eliquis 5 mg b.i.d. today. An echocardiogram is pending. Troponins are flat. 2. Hypothyroidism, TSH is normal on current dose of levothyroxine. 3. Hypertension, blood pressure is well-controlled on his current regimen. 4. RJ, will need to discuss the importance of CPAP. 5. Left knee effusion, I communicated with Dr. Krueger from Orthopedics, he will see the patient in consultation. Consider arthrocentesis. 6. Inflammatory arthritis, concerned about the possible insect bite on the back of his right leg a few weeks ago. It could have been a tick bite. 7. Right wrist swelling, will ask Orthopedics to evaluate this as well.
[2020-08-18] MEDS: DICLOFENAC EPOLAMINE 1.3 % PATCH TOP SCH ×2 (12:30→21:16)
[2020-08-18] MEDS ORDERED: APIXABAN 5 MG TAB (ELIQUIS) PO ONE (13:00)
[2020-08-18 13:50] VITALS: BP 134/74
[2020-08-18 14:18] VITALS: BP 116/69
[2020-08-18 16:00] VITALS: BP 111/58
[2020-08-18 20:00] VITALS: BP 132/82
[2020-08-18] MEDS: APIXABAN 5 MG TAB (ELIQUIS) PO SCH (21:14)
[2020-08-18] MEDS: LIDOCAINE 5% (LIDODERM) PATCH TD SCH (21:15)
[2020-08-19] VITALS: BP 128/65
[2020-08-19 04:52] VITALS: BP 122/63
[2020-08-19 05:05] LABS: HEMATOCRIT 42.3 % (42.0-52.0); HEMOGLOBIN 14.2 g/dl (13.5-17.5); MEAN CORPUSCULAR HEMOGLOBIN 31.3 pg (27.0-33.0); MEAN CORPUSCULAR HGB CONC 33.6 g/dl (32.0-36.5); MEAN CORPUSCULAR VOLUME 93.4 fl (80.0-96.0); PLATELET COUNT, AUTOMATED 181 10^3/uL (150-450); RED BLOOD COUNT 4.53 10^6/uL (4.30-6.10); WHITE BLOOD COUNT 6.7 10^3/uL (4.0-10.0)
[2020-08-19] MEDS: LEVOTHYROXINE 25MCG TABLET (0.025MG) PO SCH (05:16)
[2020-08-19 05:27] LABS: BLOOD UREA NITROGEN 18 MG/DL (7-18); CALCIUM LEVEL 8.6 MG/DL (8.8-10.2); CARBON DIOXIDE LEVEL 28 MEQ/L (21-32); CHLORIDE LEVEL 110 MEQ/L (98-107); GLOMERULAR FILTRATION RATE > 60.0 (>42); GLUCOSE, FASTING 104 MG/DL (70-100); POTASSIUM SERUM 3.9 MEQ/L (3.5-5.1); SODIUM LEVEL 144 MEQ/L (136-145)
[2020-08-19 08:00] VITALS: BP 140/81
[2020-08-19] MEDS: GABAPENTIN 300 MG CAP PO SCH (08:58)
[2020-08-19] MEDS: MIRALAX *UNIT DOSE* 17GM PACKET PO SCH (08:58)
[2020-08-19] MEDS: HumaLOG INSULIN (NovoLOG) PER UNIT SC SCH ×2 (08:58→12:00)
[2020-08-19 09:00] VITALS: BP 140/81
[2020-08-19] MEDS: METOPROLOL TART 25 MG TABLET PO SCH (09:00)
[2020-08-19] MEDS: VITAMIN D 1,000 INTERNATIONAL UNITS TABLET PO SCH (09:01)
[2020-08-19] MEDS: LOSARTAN 50MG TABLET PO SCH (09:01)
[2020-08-19] MEDS: APIXABAN 5 MG TAB (ELIQUIS) PO SCH (09:01)
[2020-08-19] MEDS: **NOTE PATIENT COMMENT** MISC XX SCH (09:18)
[2020-08-19] MEDS: DICLOFENAC EPOLAMINE 1.3 % PATCH TOP SCH (09:18)
--- NOTE | 2020-08-19 10:04 | CR ---
CONSULTATION DATE: 08/18/2020 CHIEF COMPLAINT: Left knee pain. HISTORY OF PRESENT ILLNESS: This 75-year-old man complains of multiple years of left knee pain. He was scheduled for a total knee arthroplasty in 2014 in [place]. Unfortunately, this was delayed due to problems with breathing and other medical complications. He has had a right total knee arthroplasty. He complains about more pain in the last few days and swelling of his left knee. He was at his primary care physician (PCP) and found to be in rapid atrial fibrillation, admitted to the hospital. Further notes it has been decided to go ahead and anticoagulate this patient. He has not had any fevers, flu-like symptoms, redness or drainage about the knee. He has had cortisone injections. He does not feel like these have helped in the past. This was about 5 months ago. 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 MEDICAL HISTORY: Per the hospitalist includes: 1. Central hypertension. 2. Nfa-Wcytnxd-naxhqkxdb diabetes mellitus (NIDDM). 3. Severe obstructive sleep apnea (RJ), noncompliant with continuous positive airway pressure (CPAP). 4. Osteoarthritis. 5. Hypothyroidism. 6. Nephrolithiasis. 7. Class III obesity. 8. Right total knee arthroplasty. MEDICATIONS: Calcium, vitamin D, gabapentin, levothyroxine, losartan, metformin, multivitamins, omega-3, MiraLax. ALLERGIES: SULFA and MELOXICAM. SOCIAL HISTORY: He does not smoke or use recreational drugs. 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 PHYSICAL EXAMINATION: He is a well-appearing man in no acute distress, 75. He looks his stated age. He communicates appropriately. His vital signs reveal temperature of 98.2. Pulse rate is normal. Blood pressure 111/58, pulse oximetry 100% on room air. Inspection of bilateral lower extremities reveals a small effusion, left knee. No redness or warmth. No drainage. Anterior midline incision on the right knee appears well healed, free of complications. Normal sensation and motor function, left foot. Good dorsalis pedis pulse. He is able to dorsiflex and plantarflex the foot. Calf is soft. No redness or warmth there. Range of motion actively and passively 0-45 degrees. No pain with micromotion. Can lift the leg out straight. Pain with palpation on the medial side of his primarily. Laboratory examination reveals white blood cell count of 7.1, trending down from 9.4. His CRP is 6.08. Radiographs are reviewed of the knee. This demonstrates moderate to advanced tricompartmental osteoarthritis, most predominant at the medial and patellofemoral compartment. Palpable joint effusion. Soft tissue swelling in the suprapatellar soft tissues. No fracture or other acute abnormalities. ASSESSMENT AND PLAN: A 75-year-old man with acute exacerbation of left knee osteoarthritis. No obvious signs of septic joint or infection. I recommend nonsurgical management. I would be hesitate to recommend a cortisone injection in this patient given the fact that he has been recently anticoagulated, and a cortisone injection did not help him in the past. One could consider performing this as an outpatient. I see no role for acute irrigation and debridement and no role for an acute aspiration. I recommend physical therapy and occupational therapy assessment to help with ambulatory aids, considering a walker or wheelchair to help with transfers and ambulation. I can follow this man up as an outpatient and/or I have recommended a referral to an arthroplasty specific surgeon, Dr. Oakley in our office or otherwise. Once this man's cardiac issues are settled down, he would benefit more from a total knee arthroplasty rather than a cortisone injection during his hospital stay. I have explained this to him and his . He could also try a knee immobilizer, and I will order this for him as well to help with mobilization. Otherwise, range of motion and weightbearing as tolerated, left lower extremity.
[2020-08-19] MEDS ORDERED: METO1TAB87 PO (10:49)
[2020-08-19] MEDS ORDERED: ELIQ5TAB PO (10:49)
--- NOTE | 2020-08-19 12:03 | DSES ---
DISCHARGE SUMMARY DATE OF ADMISSION: 08/17/2020 DATE OF DISCHARGE: 08/19/2020 PRINCIPAL DIAGNOSIS: Atrial fibrillation with rapid ventricular response. SECONDARY DIAGNOSES: 1. Left knee and right wrist effusion. 2. Osteoarthritis left knee. 3. Hypertensive heart disease. 4. Hypothyroidism. 5. Sleep apnea. Noncompliant with regular continuous positive airway pressure (CPAP) use. HISTORY OF PRESENT ILLNESS: The patient was in the [facility] office for his initial visit after transferring his care from his retiring primary care provider. At that visit he was noted to be in atrial fibrillation with heart rates up to the 120s. He was admitted for evaluation of this. Details are in the history and physical from admission. HOSPITAL COURSE: The patient's heart rate was well controlled with an augmented dose of metoprolol. He was started on anticoagulant with Eliquis 5 mg by mouth twice daily. Heart rate remained well controlled and on the day of discharge his heart rate was consistently 80-100. He has had no epistaxis, rectal bleeding, or urinary bleeding on the Eliquis. Dr. Nick Krueger saw him from Orthopedics. He did not feel he needed an arthrocentesis. He recommended a knee immobilizer brace which staff will get before discharge. His blood pressure remained well controlled during his hospitalization. He has a swollen right wrist which he attributed to an overuse injury after pushing off a lot due to inability to walk with his left knee. I have ordered a series of rheumatologic studies including a Lyme test, rheumatoid factor, and DOMONIQUE and most of these are pending. DISPOSITION: The patient is discharged home in improved and stable condition. Today his blood pressure is 140/81, heart rate 86, O2 saturation 96% on room air. Alert, conversant, no distress. HEENT: No JVD. Lungs are clear. Heart: Regular rate and rhythm. A 1/6 systolic ejection murmur. Abdomen is soft and nontender, no masses. He has no peripheral edema. Echocardiogram was ordered on admission. Results are not back by the time of discharge. COVID screen was negative. Lyme test is pending. DOMONIQUE is pending. CBC with a white count of 6.7, hemoglobin 14, platelets 181. Sodium 144, potassium 3.9, BUN 18, creatinine 0.9, glucose 104. PT, PTT normal. D-dimer 1872. CT angiogram showed no pulmonary embolism, mild interstitial edema present. DISPOSITION: The patient is discharged home in improved and stable condition. He will follow up with his primary care provider GRECIA Santiago in the [place] office in one week. Follow up with Dr. Nick Krueger in his office for his knee arthritis. His activity is as tolerated. He is on a no added salt diet. MEDICATIONS: His medications will continue to be: 1. Calcium twice a day. 2. Vitamin D 1000 units daily. 3. Gabapentin 300 mg three times a day. 4. Levothyroxine 25 mcg daily. 5. Losartan 50 mg daily. 6. Metformin 500 mg twice a day. 7. Multivitamin. 8. MiraLax as needed. 9. He was started on Eliquis 5 mg twice a day. 10. Metoprolol tartrate 25 mg twice a day. 11. He can use Tylenol as needed for pain. Echocardiogram and rheumatologic studies are still pending.
[2020-08-19 20:12] LABS: ANA (HEP2) Negative (.); Lyme Disease IgG/IgM Antibodie <0.91 ISR (0.00-0.90); Lyme Disease IgM Ab Quantitati <0.80 index (0.00-0.79)
--- NOTE | 2020-08-20 00:57 | ECHO ---
ECHOCARDIOGRAM DATE OF PROCEDURE: 08/18/2020 Age: 75 Gender: Male REFERRING PHYSICIAN: Dr. Alethea Javier PATIENT LOCATION: ED Room 19 REASON FOR TESTING: Atrial fibrillation MEASUREMENTS: 2D Measurement IVS 0.5 cm LV 4.9 cm LVPW 0.6 cm LA 3.5 cm Aorta 3.3 cm DOPPLER MEASUREMENT Peak velocity across the LVOT 0.7 m/s 2D COMMENTS: 1. Normal left ventricular size, wall thickness, and normal global left ventricular systolic function. Estimated left ventricular systolic ejection fraction is 55 to 65%. 2. Normal left atrium. The right atrium and right ventricle appear to be mildly enlarged on limited views. 3. The atrial septum appeared to be normal without evidence of defect or shunt. 4. Normal aortic root. 5. Small pericardial effusion was noted. No evidence of cardiac tamponade. 6. Mildly calcified aortic valve with normal leaflet excursion. Mildly calcified mitral annulus with normal anterior mitral valve leaflet motion. Normal tricuspid valve. The pulmonic valve and proximal pulmonary artery branches were not well visualized. 7. The inferior vena cava was not visualized. DOPPLER: No significant valvular abnormalities detected. Assessment of the left ventricular diastolic function was limited in view of the underlying arrhythmias, atrial fibrillation. IMPRESSION: 1. Normal global left ventricular systolic function. Assessment of the left ventricular diastolic function was limited in view of the underlying atrial fibrillation. 2. Aortic valve sclerosis without stenosis or aortic regurgitation. 3. Mitral annulus calcification without evidence of mitral regurgitation or mitral stenosis. 4. A small pericardial effusion was noted, no evidence of cardiac tamponade. 5. The right heart chambers appear to be mildly enlarged in limited views. 6. Patient was noted during the test to be in atrial fibrillation. 7. The study was technically limited due to poor acoustic window. [facility]
== END 2020-08-19 13:25 | disposition home or self-care (01) ==
LOC: M ED 16:25 → EDBD 16:25 → M ED INP 16:26 → ENRESERV 08-18 12:42 → M PCU 08-18 13:50
PROVIDERS: ADMIT Internal Medicine; ATTEND Family Medicine
DX: I48.91 Unspecified atrial fibrillation (principal); M25.462 Effusion, left knee; M25.432 Effusion, left wrist; M17.12 Unilateral primary osteoarthritis, left knee; M25.521 Pain in right elbow; R79.1 Abnormal coagulation profile; I11.9 Hypertensive heart disease without heart failure; E03.9 Hypothyroidism, unspecified; G47.33 Obstructive sleep apnea (adult) (pediatric); E11.9 Type 2 diabetes mellitus without complications; Z87.442 Personal history of urinary calculi; Z91.19 Patient's noncompliance with other medical treatment and regimen; E66.9 Obesity, unspecified; Z96.651 Presence of right artificial knee joint; Z87.81 Personal history of (healed) traumatic fracture; Z79.899 Other long term (current) drug therapy; Z79.01 Long term (current) use of anticoagulants; Z79.84 Long term (current) use of oral hypoglycemic drugs; Z88.2 Allergy status to sulfonamides; Z88.8 Allergy status to other drugs, medicaments and biological substances
CPT/HCPCS: 36415; 71045; 71275; 73080; 73110; 73564; 80048; 80076; 82550; 82553; 83690; 83735; 83880; 84436; 84443; 84479; 84484; 85025; 85027; 85379; 85610; 85730; 86038; 86140; 86431; 86617; 87631; 93005; 93041; 93306; 94760; 96361; 96372; 96374; 97161; 97530; 99285; G0378; G0463; J1650; Q9967

== ENCOUNTER → 2020-09-01 | Outpatient (REF) | payer MEDICARE, MEDICAID ==
[~2020-09-01] MED LIST changes: +CALC600T86 PO; +D31000TA2 PO; +ELIQ5TAB PO; +GABA-282 PO; +LEVO25TA34 PO; +LEVO50TA5 PO; +METO1TAB87 PO
[2020-09-01 17:11] LABS: ALBUMIN 3.6 GM/DL (3.2-5.2); ALT/SGPT 27 U/L (12-78); BILIRUBIN,TOTAL 1.1 MG/DL (0.2-1.0); BLOOD UREA NITROGEN 19 MG/DL (7-18); CALCIUM LEVEL 9.2 MG/DL (8.8-10.2); CARBON DIOXIDE LEVEL 30 MEQ/L (21-32); CHLORIDE LEVEL 108 MEQ/L (98-107); CREATININE FOR GFR 1.14 MG/DL (0.70-1.30); GLOMERULAR FILTRATION RATE > 60.0 (>42); GLUCOSE, FASTING 109 MG/DL (70-100); POTASSIUM SERUM 4.8 MEQ/L (3.5-5.1); SODIUM LEVEL 142 MEQ/L (136-145)
[2020-09-01 17:19] LABS: BASO # 0.1 10^3/uL (0.0-0.2); BASO % 0.8 % (0.0-1.0); EOS # 0.1 10^3/uL (0.0-0.5); EOS % 1.9 % (0.0-3.0); HEMATOCRIT 46.8 % (42.0-52.0); HEMOGLOBIN 15.4 g/dl (13.5-17.5); LYMPH # 1.9 10^3/uL (1.5-5.0); LYMPH % 25.5 % (24.0-44.0); MEAN CORPUSCULAR HEMOGLOBIN 31.4 pg (27.0-33.0); MEAN CORPUSCULAR HGB CONC 32.9 g/dl (32.0-36.5); MEAN CORPUSCULAR VOLUME 95.5 fl (80.0-96.0); MONO # 0.7 10^3/uL (0.0-0.8); MONO % 9.6 % (2.0-8.0); NEUTROPHILS # 4.5 10^3/uL (1.5-8.5); NEUTROPHILS % 61.9 % (36.0-66.0); PLATELET COUNT, AUTOMATED 217 10^3/uL (150-450); WHITE BLOOD COUNT 7.3 10^3/uL (4.0-10.0)
== END ==
LOC: M SFHCADAM 13:08
PROVIDERS: ATTEND Physician Assistant
DX: R19.7 Diarrhea, unspecified (principal)

== ENCOUNTER → 2020-09-02 | Outpatient (REF) | payer MEDICARE, MEDICAID | LOC: M SFHCADAM 13:31 | PROVIDERS: ATTEND Physician Assistant | DX: R19.7 Diarrhea, unspecified (principal) ==

== ENCOUNTER → 2020-09-06 | Outpatient (CLI) | payer MEDICARE, MEDICAID ==
--- NOTE | 2020-09-06 12:14 | REP ---
INDICATION: PAIN IN LT KNEE. COMPARISON: Left knee of 08/17/2020 right knee of 03/01/2014 TECHNIQUE: Standing bilateral AP view of the knees FINDINGS: Once again, there is a total right knee prosthetic device the femoral and tibial components of which are unchanged. There is no acute fracture, dislocation, or subluxation. There is advanced medial compartmental narrowing of the left knee with bicompartmental marginal osteophytosis medial compartment to a greater degree than the lateral and seen with subchondral sclerosis. This is unchanged from the prior exam of 08/17/2020 IMPRESSION: Chronic changes as described above. <Electronically signed by Aureliano Smith > 09/06/20 [id number]
== END ==
LOC: M SOG 09:53
PROVIDERS: ATTEND Orthopaedic Surgery Adult Reconstructive Orthopaedic Surgery
DX: M25.562 Pain in left knee (principal)

== ENCOUNTER 2020-09-26 10:57 | Outpatient (RCR) | payer MEDICARE, MEDICAID ==
[2020-09-27] MEDS ORDERED: LEVO25TA5 (07:00)
== END 2020-10-11 ==
LOC: M PT 10:57
PROVIDERS: ATTEND Orthopaedic Surgery Adult Reconstructive Orthopaedic Surgery
DX: M17.12 Unilateral primary osteoarthritis, left knee (principal)

== ENCOUNTER → 2020-10-14 | Outpatient (REF) | payer MEDICARE, MEDICAID ==
[~2020-10-14] MED LIST changes: +LEVO25TA5
[2020-10-14 15:22] LABS: HEMATOCRIT 46.7 % (42.0-52.0); HEMOGLOBIN 15.5 g/dl (13.5-17.5); MEAN CORPUSCULAR HEMOGLOBIN 31.8 pg (27.0-33.0); MEAN CORPUSCULAR HGB CONC 33.2 g/dl (32.0-36.5); MEAN CORPUSCULAR VOLUME 95.7 fl (80.0-96.0); PLATELET COUNT, AUTOMATED 164 10^3/uL (150-450); RED BLOOD COUNT 4.88 10^6/uL (4.30-6.10); WHITE BLOOD COUNT 7.2 10^3/uL (4.0-10.0)
[2020-10-14 15:57] LABS: ALBUMIN 3.5 GM/DL (3.2-5.2); ALT/SGPT 27 U/L (12-78); BILIRUBIN,TOTAL 1.2 MG/DL (0.2-1.0); BLOOD UREA NITROGEN 19 MG/DL (7-18); CALCIUM LEVEL 9.2 MG/DL (8.8-10.2); CARBON DIOXIDE LEVEL 29 MEQ/L (21-32); CHLORIDE LEVEL 108 MEQ/L (98-107); CHOLESTEROL LEVEL 135 MG/DL (<200); CREATININE FOR GFR 0.96 MG/DL (0.70-1.30); FREE T4 1.02 NG/DL (0.76-1.46); GLOMERULAR FILTRATION RATE > 60.0 (>42); GLUCOSE, FASTING 90 MG/DL (70-100); HDL CHOLESTEROL 33 MG/DL (>40); LDL CHOLESTEROL 81 MG/DL (<100); NON-HDL-C 102 MG/DL; POTASSIUM SERUM 4.1 MEQ/L (3.5-5.1); SODIUM LEVEL 143 MEQ/L (136-145); TOTAL PROTEIN 6.7 GM/DL (6.4-8.2); TRIGLYCERIDES LEVEL 106 MG/DL (<150); VITAMIN B12 LEVEL 356 PG/ML
[2020-10-14 15:58] LABS: FOLATE 17.2 NG/ML
[2020-10-14 18:17] LABS: HEMOGLOBIN A1c 5.7 %
== END ==
LOC: M SFHCADAM 11:08
PROVIDERS: ATTEND Physician Assistant
DX: E03.9 Hypothyroidism, unspecified (principal); E11.9 Type 2 diabetes mellitus without complications; I48.91 Unspecified atrial fibrillation; Z79.899 Other long term (current) drug therapy

== ENCOUNTER → 2020-10-24 | Outpatient (CLI) | payer MEDICARE, MEDICAID ==
[2020-10-24 13:37] LABS: BASO # 0.1 10^3/uL (0.0-0.2); BASO % 0.9 % (0.0-1.0); EOS # 0.2 10^3/uL (0.0-0.5); EOS % 2.3 % (0.0-3.0); HEMATOCRIT 45.7 % (42.0-52.0); HEMOGLOBIN 15.3 g/dl (13.5-17.5); LYMPH # 2.2 10^3/uL (1.5-5.0); LYMPH % 32.3 % (24.0-44.0); MEAN CORPUSCULAR HEMOGLOBIN 32.2 pg (27.0-33.0); MEAN CORPUSCULAR HGB CONC 33.5 g/dl (32.0-36.5); MEAN CORPUSCULAR VOLUME 96.2 fl (80.0-96.0); MONO # 0.6 10^3/uL (0.0-0.8); MONO % 9.2 % (2.0-8.0); NEUTROPHILS # 3.8 10^3/uL (1.5-8.5); NEUTROPHILS % 54.9 % (36.0-66.0); PLATELET COUNT, AUTOMATED 175 10^3/uL (150-450); RED BLOOD COUNT 4.75 10^6/uL (4.30-6.10); WHITE BLOOD COUNT 6.9 10^3/uL (4.0-10.0)
[2020-10-24 15:15] LABS: ERYTHROCYTE SEDIMENTATION RATE 7 mm/hr (0-20)
== END ==
LOC: M PLALAB 09:58
PROVIDERS: ATTEND Internal Medicine Infectious Disease
DX: L98.8 Other specified disorders of the skin and subcutaneous tissue (principal); Z79.84 Long term (current) use of oral hypoglycemic drugs; Z79.899 Other long term (current) drug therapy
CPT/HCPCS: 36415; 85025; 85652; 86140; 87070; 87077; 87186; 87205; G0463

== ENCOUNTER → 2020-12-30 | Outpatient (REF) | payer MEDICARE, MEDICAID ==
[2020-12-30 13:33] LABS: HEMOGLOBIN A1c 5.5 %
[2020-12-30 13:38] LABS: BLOOD UREA NITROGEN 14 MG/DL (7-18); CALCIUM LEVEL 9.9 MG/DL (8.8-10.2); CARBON DIOXIDE LEVEL 32 MEQ/L (21-32); CHLORIDE LEVEL 107 MEQ/L (98-107); CREATININE FOR GFR 0.97 MG/DL (0.70-1.30); GLOMERULAR FILTRATION RATE > 60.0 (>42); GLUCOSE, FASTING 95 MG/DL (70-100); POTASSIUM SERUM 4.4 MEQ/L (3.5-5.1); SODIUM LEVEL 142 MEQ/L (136-145)
== END ==
LOC: M SFHCADAM 10:32
PROVIDERS: ATTEND Physician Assistant
DX: E11.9 Type 2 diabetes mellitus without complications (principal)

== ENCOUNTER → 2021-01-13 | Outpatient (REF) | payer MEDICARE, MEDICAID ==
[2021-01-13 17:29] LABS: APPEARANCE, URINE CLEAR (CLEAR); BACTERIA, URINE AUTO NEGATIVE (NEGATIVE); BILIRUBIN, URINE AUTO NEGATIVE (NEGATIVE); BLOOD, URINE BLOOD NEGATIVE (NEGATIVE); COLOR, URINE YELLOW (YELLOW); GLUCOSE, URINE (UA) AUTO NEGATIVE (NEGATIVE); KETONE, URINE AUTO NEGATIVE (NEGATIVE); LEUKOCYTE ESTERASE, URINE AUTO NEGATIVE (NEGATIVE); NITRITE, URINE AUTO NEGATIVE (NEGATIVE); PROTEIN, URINE AUTO NEGATIVE (NEGATIVE); RBC, URINE AUTO 1 /HPF (0-3); SPECIFIC GRAVITY URINE AUTO 1.013 (1.002-1.035); SQUAMOUS EPITHELIAL CELL UR AU 0 /HPF (0-6); WBC, URINE AUTO 3 /HPF (0-3)
== END ==
LOC: M SFHCADAM 16:06
PROVIDERS: ATTEND Physician Assistant
DX: R33.9 Retention of urine, unspecified (principal)
CPT/HCPCS: 81001; 87086; G0463

== ENCOUNTER → 2021-01-17 | Outpatient (REF) | payer MEDICARE, MEDICAID ==
[~2021-01-17] MED LIST changes: +ELIQ5TAB; +FLOM0.4C39 PO; +LOSA50TA28 PO; -LOSA50TA88 PO; +METO1TAB87
== END ==
LOC: M LAB REF 11:43
PROVIDERS: ATTEND Surgery
DX: D04.61 Carcinoma in situ of skin of right upper limb, including shoulder (principal); M51.36 Other intervertebral disc degeneration, lumbar region; M25.78 Osteophyte, vertebrae; M54.50 Low back pain, unspecified; R33.9 Retention of urine, unspecified
CPT/HCPCS: 11042; 72110; 88305; G0463

== ENCOUNTER → 2021-01-17 | Outpatient (CLI) | payer MEDICARE, MEDICAID | LOC: M ADAMS 14:20 | PROVIDERS: ATTEND Physician Assistant | DX: M51.36 Other intervertebral disc degeneration, lumbar region (principal); M25.78 Osteophyte, vertebrae; M54.50 Low back pain, unspecified; R33.9 Retention of urine, unspecified ==

== ENCOUNTER → 2021-01-18 | Outpatient (CLI) | payer MEDICARE, MEDICAID ==
[~2021-01-18] MED LIST changes: +PROHANCE 279.3MG/ML 15ML VIAL As Ordered ONE; +PROHANCE 279.3MG/ML 5ML VIAL As Ordered ONE
== END ==
LOC: M RAD 13:37
PROVIDERS: ATTEND Physician Assistant
DX: M99.53 Intervertebral disc stenosis of neural canal of lumbar region (principal); M54.50 Low back pain, unspecified; R33.9 Retention of urine, unspecified; R35.0 Frequency of micturition; Z12.5 Encounter for screening for malignant neoplasm of prostate
CPT/HCPCS: 72158; 80048; 85025; 85652; 86140; A9576; G0103; G0463

== ENCOUNTER → 2021-01-18 | Outpatient (REF) | payer MEDICARE, MEDICAID ==
[~2021-01-18] MED LIST changes: -PROHANCE 279.3MG/ML 15ML VIAL As Ordered ONE; -PROHANCE 279.3MG/ML 5ML VIAL As Ordered ONE
[2021-01-18 12:55] LABS: BASO # 0.1 10^3/uL (0.0-0.2); BASO % 1.1 % (0.0-1.0); EOS # 0.2 10^3/uL (0.0-0.5); HEMATOCRIT 45.8 % (42.0-52.0); HEMOGLOBIN 15.1 g/dl (13.5-17.5); LYMPH # 1.9 10^3/uL (1.5-5.0); MONO # 0.7 10^3/uL (0.0-0.8); MONO % 10.3 % (2.0-8.0); NEUTROPHILS # 3.6 10^3/uL (1.5-8.5); NEUTROPHILS % 56.3 % (36.0-66.0); PLATELET COUNT, AUTOMATED 167 10^3/uL (150-450); RED BLOOD COUNT 4.72 10^6/uL (4.30-6.10); WHITE BLOOD COUNT 6.4 10^3/uL (4.0-10.0)
[2021-01-18 13:29] LABS: BLOOD UREA NITROGEN 17 MG/DL (7-18); C REACTIVE PROTEIN QUANTITATIV 0.36 MG/DL (0.00-0.30); CALCIUM LEVEL 9.5 MG/DL (8.8-10.2); CARBON DIOXIDE LEVEL 30 MEQ/L (21-32); CHLORIDE LEVEL 106 MEQ/L (98-107); CREATININE FOR GFR 1.03 MG/DL (0.70-1.30); GLOMERULAR FILTRATION RATE > 60.0 (>42); GLUCOSE, FASTING 100 MG/DL (70-100); POTASSIUM SERUM 4.4 MEQ/L (3.5-5.1); SODIUM LEVEL 141 MEQ/L (136-145)
[2021-01-18 14:32] LABS: ERYTHROCYTE SEDIMENTATION RATE 7 mm/hr (0-20)
== END ==
LOC: M SFHCADAM 09:45
PROVIDERS: ATTEND Physician Assistant
DX: M54.50 Low back pain, unspecified (principal); R33.9 Retention of urine, unspecified; R35.0 Frequency of micturition; Z12.5 Encounter for screening for malignant neoplasm of prostate

== ENCOUNTER → 2021-02-09 | Outpatient (REF) | payer MEDICARE, MEDICAID ==
[~2021-02-09] MED LIST changes: -ELIQ5TAB; -FLOM0.4C39 PO; -LOSA50TA28 PO; +LOSA50TA88 PO; -METO1TAB87
== END ==
LOC: M SFHCPLAZ 16:45
PROVIDERS: ATTEND Physician Assistant
DX: R19.7 Diarrhea, unspecified (principal)

== ENCOUNTER → 2021-03-03 | Outpatient (CLI) | payer MEDICARE, MEDICAID ==
[~2021-03-03] MED LIST changes: +FLOM0.4C39 PO; +LOSA50TA28 PO; -LOSA50TA88 PO
== END ==
LOC: M SOG 10:11
PROVIDERS: ATTEND Orthopaedic Surgery Sports Medicine
DX: S00-T88 Injury, poisoning and certain other consequences of external causes (principal)

== ENCOUNTER → 2021-03-03 | Outpatient (CLI) | payer MEDICARE, MEDICAID | LOC: M LABSMTC 10:44 | PROVIDERS: ATTEND Anesthesiology | DX: Z01.818 Encounter for other preprocedural examination (principal); Z11.52 Encounter for screening for COVID-19 ==

== ENCOUNTER 2021-03-08 06:15 | Day surgery (SDC) | payer MEDICARE, MEDICAID ==
[~2021-03-08] VITALS: Ht 167.6 cm; Wt 109.3 kg
[~2021-03-08 06:15] MED LIST changes: +LR 1,000 ML IV ONE; +ceFAZolin SOD 2 GM in IV 1 EA IV ONE
[2021-03-08] MEDS ORDERED: ELIQ5TAB (06:30)
[2021-03-08] MEDS ORDERED: METO1TAB87 (06:30)
[2021-03-08] MEDS ORDERED: propofoL 200 MG/20 ML VIAL As Ordered ONE (07:48)
[2021-03-08] MEDS ORDERED: fentaNYL 100 MCG/2 ML INJECTION (J3010) As Ordered ONE ×2 (07:48→08:19)
[2021-03-08] MEDS ORDERED: ONDANSETRON 4MG/2ML VIAL As Ordered ONE (07:48)
[2021-03-08] MEDS ORDERED: LIDOCAINE 2% 100MG/5ML SDV (FOR ANES.) As Ordered ONE (07:48)
[2021-03-08] MEDS ORDERED: dexameTHASONE 4 MG/ML 1ML VIAL (J1100 PER 1MG) As Ordered ONE (07:48)
[2021-03-08] MEDS ORDERED: MIDAZOLAM INJ 2MG/2ML VIAL (J2250 PER 1MG) As Ordered ONE (07:48)
[2021-03-08] MEDS ORDERED: ACETAMINOPHEN 1000MG 100ML IV BTL (OFIRMEV) (J0131 PER 10MG) As Ordered ONE (07:52)
[2021-03-08] MEDS ORDERED: LIDOCAINE 1% SDV 30ML VIAL As Ordered ONE (07:54)
[2021-03-08] MEDS ORDERED: fentaNYL 100 MCG/2 ML INJECTION (J3010) IV PRN (09:30)
[2021-03-08] MEDS ORDERED: oxyCODONE 5MG TAB PO PRN (09:30)
[2021-03-08] MEDS ORDERED: LR 1,000 ML IV SCH ×2 (09:30→09:35)
[2021-03-08] MEDS ORDERED: ONDANSETRON 4MG/2ML VIAL IV PRN ×2 (09:30→09:35)
[2021-03-08] MEDS ORDERED: ACETAMINOPHEN TAB 650MG DOSE (2X325MG) PO PRN (09:35)
[2021-03-08] MEDS ORDERED: PERCOCET 5MG/325MG TAB PO PRN (09:35)
[2021-03-08] MEDS ORDERED: MORPHINE 2 MG/ML 1ML VIAL (J2270) IV PRN (09:35)
[2021-03-08 11:40] VITALS: BP 112/72
== END 2021-03-08 11:40 | disposition home or self-care (01) ==
LOC: M SDC 06:15
PROVIDERS: ATTEND Orthopaedic Surgery Sports Medicine
DX: M25.521 Pain in right elbow (principal); S00-T88 Injury, poisoning and certain other consequences of external causes; I10 Essential (primary) hypertension; I48.91 Unspecified atrial fibrillation; E11.40 Type 2 diabetes mellitus with diabetic neuropathy, unspecified; E03.9 Hypothyroidism, unspecified; Z86.16 Personal history of COVID-19; Z79.01 Long term (current) use of anticoagulants; Z79.899 Other long term (current) drug therapy; Z79.84 Long term (current) use of oral hypoglycemic drugs; Z88.2 Allergy status to sulfonamides; Z88.8 Allergy status to other drugs, medicaments and biological substances; Z87.891 Personal history of nicotine dependence
CPT/HCPCS: 20680; 76000; J0131; J0690; J1100; J2250; J2405; J3010

== ENCOUNTER → 2021-04-10 | Outpatient (REF) | payer MEDICARE, MEDICAID ==
[~2021-04-10] MED LIST changes: +ELIQ5TAB; -LR 1,000 ML IV ONE; +METO1TAB87; -ceFAZolin SOD 2 GM in IV 1 EA IV ONE
[2021-04-10 15:45] LABS: ALBUMIN 3.6 GM/DL (3.2-5.2); ALT/SGPT 24 U/L (12-78); BILIRUBIN,TOTAL 1.4 MG/DL (0.2-1.0); BLOOD UREA NITROGEN 18 MG/DL (7-18); CALCIUM LEVEL 9.6 MG/DL (8.8-10.2); CARBON DIOXIDE LEVEL 31 MEQ/L (21-32); CHLORIDE LEVEL 107 MEQ/L (98-107); CHOLESTEROL LEVEL 160 MG/DL (<200); CHOLESTEROL RISK RATIO 4.324 (<5); CREATININE FOR GFR 1.02 MG/DL (0.70-1.30); GLOMERULAR FILTRATION RATE > 60.0 (>42); GLUCOSE, FASTING 100 MG/DL (70-100); HDL CHOLESTEROL 37 MG/DL (>40); LDL CHOLESTEROL 101 MG/DL (<100); NON-HDL-C 123 MG/DL; POTASSIUM SERUM 4.7 MEQ/L (3.5-5.1); SODIUM LEVEL 142 MEQ/L (136-145); TOTAL PROTEIN 6.7 GM/DL (6.4-8.2); TRIGLYCERIDES LEVEL 112 MG/DL (<150)
== END ==
LOC: M SFHCADAM 12:37
PROVIDERS: ATTEND Physician Assistant
DX: Z01.818 Encounter for other preprocedural examination (principal); E11.9 Type 2 diabetes mellitus without complications; M54.50 Low back pain, unspecified; R33.9 Retention of urine, unspecified; R35.0 Frequency of micturition; Z12.5 Encounter for screening for malignant neoplasm of prostate; I48.91 Unspecified atrial fibrillation; I10 Essential (primary) hypertension; Z79.01 Long term (current) use of anticoagulants
CPT/HCPCS: 80053; 80061; 83036; G0103

== ENCOUNTER → 2021-04-20 | Outpatient (CLI) | payer MEDICARE, MEDICAID ==
[~2021-04-20] MED LIST changes: -D31000TA2 PO; +VITA100093 PO
== END ==
LOC: M SOG 13:24
PROVIDERS: ATTEND Orthopaedic Surgery
DX: M47.817 Spondylosis without myelopathy or radiculopathy, lumbosacral region (principal); T84.228A Displacement of internal fixation device of other bones, initial encounter; M17.11 Unilateral primary osteoarthritis, right knee; Z96.651 Presence of right artificial knee joint

== ENCOUNTER → 2021-05-04 | Outpatient (CLI) | payer MEDICARE, MEDICAID ==
[2021-05-04 15:42] LABS: BASO # 0.1 10^3/uL (0.0-0.2); BASO % 0.7 % (0.0-1.0); EOS # 0.1 10^3/uL (0.0-0.5); EOS % 1.8 % (0.0-3.0); HEMATOCRIT 46.7 % (42.0-52.0); HEMOGLOBIN 15.9 g/dl (13.5-17.5); LYMPH # 2.1 10^3/uL (1.5-5.0); LYMPH % 29.5 % (24.0-44.0); MONO # 0.7 10^3/uL (0.0-0.8); MONO % 10.4 % (2.0-8.0); NEUTROPHILS % 57.2 % (36.0-66.0); PLATELET COUNT, AUTOMATED 171 10^3/uL (150-450); RED BLOOD COUNT 4.97 10^6/uL (4.30-6.10)
[2021-05-04 16:00] LABS: HEMOGLOBIN A1c 6.1 %
[2021-05-04 16:06] LABS: ALBUMIN 3.5 GM/DL (3.2-5.2); ALT/SGPT 35 U/L (12-78); BILIRUBIN,TOTAL 1.3 MG/DL (0.2-1.0); BLOOD UREA NITROGEN 19 MG/DL (7-18); CALCIUM LEVEL 9.4 MG/DL (8.8-10.2); CARBON DIOXIDE LEVEL 28 MEQ/L (21-32); CHLORIDE LEVEL 108 MEQ/L (98-107); CREATININE FOR GFR 1.03 MG/DL (0.70-1.30); GLOMERULAR FILTRATION RATE > 60.0 (>42); GLUCOSE, FASTING 129 MG/DL (70-100); POTASSIUM SERUM 4.5 MEQ/L (3.5-5.1); SODIUM LEVEL 140 MEQ/L (136-145); TOTAL PROTEIN 6.6 GM/DL (6.4-8.2)
== END ==
LOC: M PLALAB 13:07
DX: M17.12 Unilateral primary osteoarthritis, left knee (principal); Z79.899 Other long term (current) drug therapy

== ENCOUNTER → 2021-05-04 | Outpatient (CLI) | payer MEDICARE, MEDICAID | LOC: M SOG 11:53 | PROVIDERS: ATTEND Orthopaedic Surgery | DX: Z01.818 Encounter for other preprocedural examination (principal); M16.0 Bilateral primary osteoarthritis of hip; Z79.899 Other long term (current) drug therapy; M17.12 Unilateral primary osteoarthritis, left knee ==

== ENCOUNTER → 2021-05-22 | Outpatient (CLI) | payer MEDICARE, MEDICAID ==
[~2021-05-22] MED LIST changes: -ELIQ5TAB; -LEVO25TA5; +LEVO25TA5 PO; -METO1TAB87
== END ==
LOC: M RAD 09:53
PROVIDERS: ATTEND Orthopaedic Surgery
DX: M17.12 Unilateral primary osteoarthritis, left knee (principal); M16.12 Unilateral primary osteoarthritis, left hip; M77.32 Calcaneal spur, left foot; M25.772 Osteophyte, left ankle

== ENCOUNTER → 2021-05-31 | Outpatient (CLI) | payer MEDICARE, MEDICAID | LOC: M LABSMTC 10:09 | PROVIDERS: ATTEND Anesthesiology | DX: Z01.812 Encounter for preprocedural laboratory examination (principal); Z20.822 Contact with and (suspected) exposure to COVID-19 ==

== ENCOUNTER 2021-06-05 09:42 | Inpatient (IN) | payer MEDICARE, MEDICAID ==
[~2021-06-05] VITALS: Ht 182.9 cm; Wt 117.5 kg
[~2021-06-05 09:42] MED LIST changes: +LR 1,000 ML IV ONE; +MIDAZOLAM INJ 2MG/2ML VIAL (J2250 PER 1MG) IV PRN; +PREGABALIN 75 MG CAP(LYRICA) PO ONE; +ROPIVA 100MG/KETOR 15MG/EPINEPHRINE 0.3MG IN NS 50ML SYRINGE PA ONE; +ceFAZolin SOD 2 GM in IV 1 EA IV ONE; +fentaNYL 100 MCG/2 ML INJECTION IV PRN; +oxyCODONE 5MG TAB PO ONE
[2021-06-05] MEDS ORDERED: dexameTHASONE 10MG/1ML VIAL PRES.FREE (J1100 PER 1MG) XX ONE (10:50)
[2021-06-05] MEDS ORDERED: ROPIvacaine 0.5% 30ML INJECTION (J2795 PER 1MG) XX ONE (10:50)
[2021-06-05] MEDS ORDERED: ROCURONIUM BROMIDE 50 MG/5 ML VIAL As Ordered ONE ×2 (11:11→12:36)
[2021-06-05] MEDS ORDERED: fentaNYL 250 MCG/5 ML INJECTION As Ordered ONE (11:11)
[2021-06-05] MEDS ORDERED: propofoL 200 MG/20 ML VIAL As Ordered ONE (11:11)
[2021-06-05] MEDS ORDERED: LIDOCAINE 2% 100MG/5ML SDV (FOR ANES.) As Ordered ONE (11:11)
[2021-06-05] MEDS ORDERED: MIDAZOLAM INJ 2MG/2ML VIAL (J2250 PER 1MG) As Ordered ONE (11:11)
[2021-06-05] MEDS ORDERED: TRANEXAMIC ACID 100 MG/ML 10ML VIAL As Ordered ONE (11:13)
[2021-06-05] MEDS ORDERED: EPINEPHrine INJ 1 MG/ML 1ML AMP As Ordered ONE (11:18)
[2021-06-05] MEDS ORDERED: VANCOMYCIN 1000MG/20ML VIAL As Ordered ONE (11:19)
[2021-06-05] MEDS ORDERED: LIDOCAINE 1% MDV 20ML VIAL As Ordered ONE (11:22)
[2021-06-05] MEDS ORDERED: ePHEDrine SULFATE 25 MG/5 ML(5MG/ML) SYRINGE As Ordered ONE (12:21)
[2021-06-05] MEDS ORDERED: PHENYLephrine 500MCG 5ML (100MCG/ML) SYRINGE As Ordered ONE ×2 (12:21→12:53)
[2021-06-05] MEDS ORDERED: ACETAMINOPHEN 1000MG 100ML IV BTL (OFIRMEV) (J0131 PER 10MG) As Ordered ONE (12:27)
[2021-06-05] MEDS ORDERED: METOPROLOL 5 MG/5 ML VIAL As Ordered ONE ×2 (12:35→16:34)
[2021-06-05] MEDS ORDERED: PHENYLEPHRINE 10MG/ML 1ML VIAL (J2370 PER 1) As Ordered ONE (13:04)
[2021-06-05] MEDS ORDERED: HYDROmorphone HCL 2MG/ML 1ML VIAL As Ordered ONE (13:28)
[2021-06-05] MEDS ORDERED: KETOROLAC 60MG 2ML VIAL As Ordered ONE (13:56)
[2021-06-05] MEDS ORDERED: ONDANSETRON 4MG/2ML VIAL As Ordered ONE (13:56)
[2021-06-05] MEDS ORDERED: METOCLOPRAMIDE INJ 10MG/2ML VIAL (J2765 PER 1) As Ordered ONE (13:57)
[2021-06-05] MEDS ORDERED: CALCIUM CHLORIDE 10% 1 GM/10 ML SYR As Ordered ONE (15:28)
[2021-06-05] MEDS ORDERED: SUGAMMADEX SODIUM 500 MG/5 ML VIAL (BRIDION) As Ordered ONE (15:51)
[2021-06-05] MEDS ORDERED: ACETAMINOPHEN TAB 650MG DOSE (2X325MG) PO PRN (16:35)
[2021-06-05] MEDS ORDERED: MORPHINE 4 MG/ML 1ML VIAL/SYRINGE IV PRN (16:35)
[2021-06-05] MEDS ORDERED: PERCOCET 5MG/325MG TAB PO PRN (16:35)
[2021-06-05] MEDS: METOPROLOL 5 MG/5 ML VIAL IV PRN ×2 (16:36→17:04)
[2021-06-05] MEDS ORDERED: oxyCODONE 5MG TAB PO PRN (16:40)
[2021-06-05] MEDS ORDERED: LR 1,000 ML IV SCH (16:40)
[2021-06-05] MEDS ORDERED: ONDANSETRON 4MG/2ML VIAL IV PRN (16:40)
[2021-06-05] MEDS ORDERED: MEPERIDINE INJ 25 MG/ML VIAL (J2175) IV PRN (16:40)
[2021-06-05] MEDS ORDERED: fentaNYL 100 MCG/2 ML INJECTION IV PRN (16:40)
[2021-06-05] MEDS ORDERED: METF500T13 PO (17:14)
[2021-06-05 17:17] LABS: HEMATOCRIT 42.8 % (42.0-52.0); HEMOGLOBIN 14.5 g/dl (13.5-17.5); MEAN CORPUSCULAR HEMOGLOBIN 32.7 pg (27.0-33.0); MEAN CORPUSCULAR HGB CONC 33.9 g/dl (32.0-36.5); MEAN CORPUSCULAR VOLUME 96.6 fl (80.0-96.0); PLATELET COUNT, AUTOMATED 165 10^3/uL (150-450); RED BLOOD COUNT 4.43 10^6/uL (4.30-6.10); WHITE BLOOD COUNT 10.8 10^3/uL (4.0-10.0)
[2021-06-05] MEDS ORDERED: NS 1,000 ML IV ONE ×2 (17:20→19:00)
[2021-06-05] MEDS ORDERED: DIGOXIN INJ 0.5 MG/2 ML AMP (J1160) IV STA (17:21)
[2021-06-05] MEDS ORDERED: GLUCOSE 4GM CHEW TABLET PO PRN (17:40)
[2021-06-05] MEDS ORDERED: DEXTROSE 50% 50 ML SYRINGE IV PRN (17:40)
[2021-06-05] MEDS ORDERED: GLUCAGON INJ 1MG VIAL SC PRN (17:40)
[2021-06-05] MEDS ORDERED: METOPROLOL 5 MG/5 ML VIAL IV STA (17:56)
[2021-06-05] MEDS: METOPROLOL TART 25 MG TABLET PO SCH (18:00)
[2021-06-05 18:20] LABS: HEMATOCRIT 41.9 % (42.0-52.0); HEMOGLOBIN 14.1 g/dl (13.5-17.5); MEAN CORPUSCULAR HEMOGLOBIN 32.8 pg (27.0-33.0); MEAN CORPUSCULAR HGB CONC 33.7 g/dl (32.0-36.5); MEAN CORPUSCULAR VOLUME 97.4 fl (80.0-96.0); PLATELET COUNT, AUTOMATED 153 10^3/uL (150-450); WHITE BLOOD COUNT 12.6 10^3/uL (4.0-10.0)
[2021-06-05 18:49] LABS: ALBUMIN 3.2 GM/DL (3.2-5.2); BILIRUBIN,TOTAL 1.2 MG/DL (0.2-1.0); CALCIUM LEVEL 9.4 MG/DL (8.8-10.2); CREATININE FOR GFR 1.34 MG/DL (0.70-1.30); GLOMERULAR FILTRATION RATE 55.6 (>42); MAGNESIUM LEVEL 1.9 MG/DL (1.8-2.4); POTASSIUM SERUM 4.2 MEQ/L (3.5-5.1)
[2021-06-05 18:50] LABS: CK-MB VALUE MASS 3.1 NG/ML (<3.6); MB/CK RELATIVE INDEX 1.31 (< OR =4)
[2021-06-05 19:00] VITALS: BP 88/62
[2021-06-05 19:32] LABS: FREE T4 1.03 NG/DL (0.76-1.46); THYROID STIMULATING HORMONE 2.45 uIU/ML (0.358-3.740)
[2021-06-05 20:00] VITALS: BP 90/68
[2021-06-05] MEDS ORDERED: NS 1,000 ML IV SCH (20:00)
[2021-06-05] MEDS: GABAPENTIN 300 MG CAP PO SCH (20:37)
[2021-06-05] MEDS: LACTULOSE 20 GM/30 ML SYRUP UD PO SCH (20:37)
[2021-06-05] MEDS: SENNA 8.6 MG TAB (SENOKOT) PO SCH (20:37)
[2021-06-05 20:41] LABS: CK-MB VALUE MASS 34.5 NG/ML (<3.6); MB/CK RELATIVE INDEX 1.23 (< OR =4)
[2021-06-05 21:00] VITALS: BP 134/94
[2021-06-05] MEDS ORDERED: METOPROLOL TART 25 MG TABLET PO SCH (21:00)
[2021-06-05] MEDS ORDERED: THIAMINE INJection 500 MG in NS 100 ML IV ONE (21:00)
[2021-06-05 21:32] LABS: HEMATOCRIT 40.4 % (42.0-52.0); HEMOGLOBIN 13.6 g/dl (13.5-17.5); MEAN CORPUSCULAR HEMOGLOBIN 32.5 pg (27.0-33.0); MEAN CORPUSCULAR HGB CONC 33.7 g/dl (32.0-36.5); MEAN CORPUSCULAR VOLUME 96.4 fl (80.0-96.0); PLATELET COUNT, AUTOMATED 145 10^3/uL (150-450); RED BLOOD COUNT 4.19 10^6/uL (4.30-6.10); WHITE BLOOD COUNT 12.9 10^3/uL (4.0-10.0)
[2021-06-05] MEDS: HumaLOG INSULIN (NovoLOG) PER UNIT SC SCH (21:46)
[2021-06-05] MEDS: ceFAZolin SOD 2 GM in IV 1 EA IV SCH (21:46)
[2021-06-05 22:00] VITALS: BP 101/86
[2021-06-05 23:00] VITALS: BP 115/73
[2021-06-05 23:32] LABS: MB/CK RELATIVE INDEX 1.41 (< OR =4)
[2021-06-06] VITALS (15 sets, daily range): BP systolic 100–146; BP diastolic 51–74
[2021-06-06] MEDS: METOPROLOL TART 25 MG TABLET PO SCH ×4 (01:36→19:11)
[2021-06-06] MEDS: ceFAZolin SOD 2 GM in IV 1 EA IV SCH (03:33)
[2021-06-06 04:53] LABS: BASO % 0.1 % (0.0-1.0); HEMATOCRIT 38.1 % (42.0-52.0); LYMPH # 0.7 10^3/uL (1.5-5.0); LYMPH % 5.1 % (24.0-44.0); MEAN CORPUSCULAR HEMOGLOBIN 32.9 pg (27.0-33.0); MEAN CORPUSCULAR HGB CONC 34.1 g/dl (32.0-36.5); MEAN CORPUSCULAR VOLUME 96.5 fl (80.0-96.0); MONO # 0.9 10^3/uL (0.0-0.8); MONO % 6.2 % (2.0-8.0); NEUTROPHILS # 12.1 10^3/uL (1.5-8.5); NEUTROPHILS % 87.9 % (36.0-66.0); PLATELET COUNT, AUTOMATED 144 10^3/uL (150-450); RED BLOOD COUNT 3.95 10^6/uL (4.30-6.10); WHITE BLOOD COUNT 13.8 10^3/uL (4.0-10.0)
[2021-06-06 05:03] LABS: INR 1.09; PROTHROMBIN TIME 14.5 SECONDS (12.7-14.5)
[2021-06-06 05:15] LABS: ALT/SGPT 53 U/L (12-78); BILIRUBIN,TOTAL 1.2 MG/DL (0.2-1.0); BLOOD UREA NITROGEN 19 MG/DL (7-18); CALCIUM LEVEL 9.1 MG/DL (8.8-10.2); CARBON DIOXIDE LEVEL 25 MEQ/L (21-32); CHLORIDE LEVEL 112 MEQ/L (98-107); CREATININE FOR GFR 0.98 MG/DL (0.70-1.30); GLOMERULAR FILTRATION RATE > 60.0 (>42); GLUCOSE, FASTING 152 MG/DL (70-100); MAGNESIUM LEVEL 1.8 MG/DL (1.8-2.4); POTASSIUM SERUM 4.9 MEQ/L (3.5-5.1); SODIUM LEVEL 142 MEQ/L (136-145); TOTAL PROTEIN 5.7 GM/DL (6.4-8.2)
[2021-06-06] MEDS: LEVOTHYROXINE 25MCG TABLET (0.025MG) PO SCH (05:56)
[2021-06-06] MEDS: LACTULOSE 20 GM/30 ML SYRUP UD PO SCH ×2 (08:43→20:43)
[2021-06-06] MEDS: HumaLOG INSULIN (NovoLOG) PER UNIT SC SCH ×4 (08:44→20:07)
[2021-06-06] MEDS: GABAPENTIN 300 MG CAP PO SCH ×3 (08:44→20:04)
[2021-06-06] MEDS: TAMSULOSIN 0.4 MG CAP PO SCH (08:44)
[2021-06-06] MEDS: VITAMIN D 1,000 INTERNATIONAL UNITS TABLET PO SCH (08:44)
[2021-06-06] MEDS ORDERED: metFORMIN XR 500MG TAB *GLUCOPHAGE XR PO SCH (09:00)
[2021-06-06] MEDS ORDERED: LOSARTAN 50MG TABLET PO SCH (09:00)
[2021-06-06] MEDS: APIXABAN 5 MG TAB (ELIQUIS) PO SCH (20:04)
[2021-06-06] MEDS: SENNA 8.6 MG TAB (SENOKOT) PO SCH (20:43)
[2021-06-07] VITALS: BP 116/57
[2021-06-07] MEDS: METOPROLOL TART 25 MG TABLET PO SCH ×3 (00:02→11:36)
[2021-06-07 03:20] VITALS: BP 115/57
[2021-06-07 05:04] VITALS: BP 113/78
[2021-06-07] MEDS: LEVOTHYROXINE 25MCG TABLET (0.025MG) PO SCH (05:04)
[2021-06-07 05:18] LABS: BASO % 0.2 % (0.0-1.0); EOS % 0.4 % (0.0-3.0); HEMATOCRIT 34.5 % (42.0-52.0); HEMOGLOBIN 11.8 g/dl (13.5-17.5); LYMPH # 2.5 10^3/uL (1.5-5.0); MEAN CORPUSCULAR HEMOGLOBIN 32.6 pg (27.0-33.0); MEAN CORPUSCULAR HGB CONC 34.2 g/dl (32.0-36.5); MEAN CORPUSCULAR VOLUME 95.3 fl (80.0-96.0); MONO % 9.5 % (2.0-8.0); NEUTROPHILS # 7.3 10^3/uL (1.5-8.5); NEUTROPHILS % 66.5 % (36.0-66.0); PLATELET COUNT, AUTOMATED 143 10^3/uL (150-450); RED BLOOD COUNT 3.62 10^6/uL (4.30-6.10)
[2021-06-07 05:46] LABS: ALT/SGPT 48 U/L (12-78); BLOOD UREA NITROGEN 21 MG/DL (7-18); CALCIUM LEVEL 8.7 MG/DL (8.8-10.2); CARBON DIOXIDE LEVEL 28 MEQ/L (21-32); CHLORIDE LEVEL 110 MEQ/L (98-107); CREATININE FOR GFR 0.86 MG/DL (0.70-1.30); GLOMERULAR FILTRATION RATE > 60.0 (>42); GLUCOSE, FASTING 99 MG/DL (70-100); MAGNESIUM LEVEL 1.8 MG/DL (1.8-2.4); POTASSIUM SERUM 4.1 MEQ/L (3.5-5.1); SODIUM LEVEL 142 MEQ/L (136-145); TOTAL PROTEIN 6.1 GM/DL (6.4-8.2)
[2021-06-07 05:53] LABS: INR 1.15; PROTHROMBIN TIME 15.1 SECONDS (12.7-14.5)
[2021-06-07] MEDS: HumaLOG INSULIN (NovoLOG) PER UNIT SC SCH ×2 (07:28→11:49)
[2021-06-07 08:00] VITALS: BP 107/58
[2021-06-07] MEDS: TAMSULOSIN 0.4 MG CAP PO SCH (08:50)
[2021-06-07] MEDS: VITAMIN D 1,000 INTERNATIONAL UNITS TABLET PO SCH (08:50)
[2021-06-07] MEDS: GABAPENTIN 300 MG CAP PO SCH (08:50)
[2021-06-07] MEDS: APIXABAN 5 MG TAB (ELIQUIS) PO SCH (08:50)
[2021-06-07] MEDS: LACTULOSE 20 GM/30 ML SYRUP UD PO SCH (09:00)
[2021-06-07] MEDS ORDERED: METO1TAB87 PO (11:01)
[2021-06-07] MEDS ORDERED: COLA100C5 PO (11:39)
[2021-06-07] MEDS ORDERED: PERCOCET PO (11:39)
== END 2021-06-07 13:53 | disposition home or self-care (01) | DRG 470 ==
LOC: M SDC 09:42 → M ICU 18:55
PROVIDERS: ADMIT Orthopaedic Surgery; ATTEND Family Medicine
PROC: 0SRD0J9 Replacement of Left Knee Joint with Synthetic Substitute, Cemented, Open Approach (ICD-10-PCS; principal; 2021-06-05 11:15)
DX: M17.12 Unilateral primary osteoarthritis, left knee (principal); E87.2 Acidosis; E66.01 Morbid (severe) obesity due to excess calories; E03.9 Hypothyroidism, unspecified; E11.40 Type 2 diabetes mellitus with diabetic neuropathy, unspecified; I10 Essential (primary) hypertension; I48.91 Unspecified atrial fibrillation; I95.9 Hypotension, unspecified; E55.9 Vitamin D deficiency, unspecified; N40.0 Benign prostatic hyperplasia without lower urinary tract symptoms; G47.33 Obstructive sleep apnea (adult) (pediatric); Z87.442 Personal history of urinary calculi; Z79.899 Other long term (current) drug therapy; Z88.2 Allergy status to sulfonamides; Z88.8 Allergy status to other drugs, medicaments and biological substances; Z68.37 Body mass index [BMI] 37.0-37.9, adult

== ENCOUNTER → 2021-06-12 | Outpatient (CLI) | payer MEDICARE, MEDICAID ==
[~2021-06-12] MED LIST changes: +COLA100C5 PO; -LR 1,000 ML IV ONE; +METF500T13 PO; -MIDAZOLAM INJ 2MG/2ML VIAL (J2250 PER 1MG) IV PRN; +PERCOCET PO; -PREGABALIN 75 MG CAP(LYRICA) PO ONE; -ROPIVA 100MG/KETOR 15MG/EPINEPHRINE 0.3MG IN NS 50ML SYRINGE PA ONE; -ceFAZolin SOD 2 GM in IV 1 EA IV ONE; -fentaNYL 100 MCG/2 ML INJECTION IV PRN; -oxyCODONE 5MG TAB PO ONE
== END ==
LOC: M SOG 09:42
PROVIDERS: ATTEND Orthopaedic Surgery
DX: Z47.89 Encounter for other orthopedic aftercare (principal); Z96.652 Presence of left artificial knee joint

== ENCOUNTER → 2021-06-19 | Outpatient (CLI) | payer MEDICARE, MEDICAID | LOC: M SOG 09:36 | PROVIDERS: ATTEND Orthopaedic Surgery | DX: Z47.89 Encounter for other orthopedic aftercare (principal) ==

== ENCOUNTER → 2021-07-20 | Outpatient (CLI) | payer MEDICARE, MEDICAID | LOC: M SOG 11:15 | PROVIDERS: ATTEND Orthopaedic Surgery | DX: M25.562 Pain in left knee (principal) ==

== ENCOUNTER → 2021-11-20 | Outpatient (CLI) | payer MEDICARE, MEDICAID ==
[~2021-11-20] MED LIST changes: +FISH10005 PO; -FISH7.5C PO
== END ==
LOC: M LABSMTC 10:20
PROVIDERS: ATTEND Anesthesiology
DX: Z01.812 Encounter for preprocedural laboratory examination (principal); Z20.822 Contact with and (suspected) exposure to COVID-19

== ENCOUNTER 2021-11-22 08:56 | Day surgery (SDC) | payer MEDICARE, MEDICAID ==
[~2021-11-22] VITALS: Ht 167.6 cm; Wt 111.1 kg
[~2021-11-22 08:56] MED LIST changes: +BSS IRRIG/VANCO(10MG)/TOBRA(5MG)/EPINEPH(1:1000-0.5CC)500ML BAG-ORONLY IR ONE; +CEFUROXIME 1MG/0.1ML INTRACAMERAL INJ As Ordered ONE; +CYCLOPENTOLATE 1% OPHTH SOLN 2 ML BTL OS SCH; +LIDOCAINE 1% SDV 5ML VIAL As Ordered ONE; +LIDOCAINE 3.5 % 1ML OPHTH TOPICAL GEL OU ONE; +MIDAZOLAM INJ 2MG/2ML VIAL (J2250 PER 1MG) As Ordered ONE; +OFLOXACIN 0.3 % (OCUFLOX) OPTH SOL 5ML OS ONE; +PHENYLEPHRINE 2.5% OPHTH SOL 2ML OS SCH; +PHENYLEPHRINE HCL 10 % OPHTH. SOL 5ML OS PRN; +TROPICAMIDE 1% OPHTH SOLN 2ML OS SCH; +fentaNYL 100 MCG/2 ML INJECTION As Ordered ONE
[2021-11-22 11:30] VITALS: BP 103/62
== END 2021-11-22 11:57 | disposition home or self-care (01) ==
LOC: M SDC 08:56
PROVIDERS: ATTEND Ophthalmology
DX: H25.12 Age-related nuclear cataract, left eye (principal); I48.91 Unspecified atrial fibrillation; I10 Essential (primary) hypertension; E78.5 Hyperlipidemia, unspecified; E03.9 Hypothyroidism, unspecified; E11.40 Type 2 diabetes mellitus with diabetic neuropathy, unspecified; G47.33 Obstructive sleep apnea (adult) (pediatric); Z87.891 Personal history of nicotine dependence; N40.0 Benign prostatic hyperplasia without lower urinary tract symptoms; Z88.2 Allergy status to sulfonamides; Z88.8 Allergy status to other drugs, medicaments and biological substances; Z79.01 Long term (current) use of anticoagulants; Z79.899 Other long term (current) drug therapy; Z79.84 Long term (current) use of oral hypoglycemic drugs
CPT/HCPCS: 66984; J0697; J2250; J3010; V2632

== ENCOUNTER → 2021-12-04 | Outpatient (CLI) | payer MEDICARE, MEDICAID ==
[~2021-12-04] MED LIST changes: -BSS IRRIG/VANCO(10MG)/TOBRA(5MG)/EPINEPH(1:1000-0.5CC)500ML BAG-ORONLY IR ONE; -CEFUROXIME 1MG/0.1ML INTRACAMERAL INJ As Ordered ONE; -CYCLOPENTOLATE 1% OPHTH SOLN 2 ML BTL OS SCH; -LIDOCAINE 1% SDV 5ML VIAL As Ordered ONE; -LIDOCAINE 3.5 % 1ML OPHTH TOPICAL GEL OU ONE; -MIDAZOLAM INJ 2MG/2ML VIAL (J2250 PER 1MG) As Ordered ONE; -OFLOXACIN 0.3 % (OCUFLOX) OPTH SOL 5ML OS ONE; -PHENYLEPHRINE 2.5% OPHTH SOL 2ML OS SCH; -PHENYLEPHRINE HCL 10 % OPHTH. SOL 5ML OS PRN; -TROPICAMIDE 1% OPHTH SOLN 2ML OS SCH; -fentaNYL 100 MCG/2 ML INJECTION As Ordered ONE
== END ==
LOC: M SOG 11:11
PROVIDERS: ATTEND Orthopaedic Surgery
DX: Z96.652 Presence of left artificial knee joint (principal)

== ENCOUNTER → 2021-12-25 | Outpatient (CLI) | payer MEDICARE, MEDICAID | LOC: M LABSMTC 10:38 | PROVIDERS: ATTEND Anesthesiology | DX: Z01.812 Encounter for preprocedural laboratory examination (principal); Z11.52 Encounter for screening for COVID-19 ==

== ENCOUNTER 2021-12-27 11:05 | Day surgery (SDC) | payer MEDICARE, MEDICAID ==
[~2021-12-27] VITALS: Ht 167.6 cm; Wt 116.0 kg
[~2021-12-27 11:05] MED LIST changes: +ACETYLCHOLINE OPHTH SOLN 1% 2ML (MIOCHOL-E) As Ordered ONE; +CEFUROXIME 1MG/0.1ML INTRACAMERAL INJ As Ordered ONE; +LIDOCAINE 1% 1ML PF SYRINGE (OR EYE CASES) As Ordered ONE
[2021-12-27] MEDS ORDERED: MIDAZOLAM INJ 2MG/2ML VIAL (J2250 PER 1MG) As Ordered ONE (11:45)
[2021-12-27] MEDS ORDERED: fentaNYL 100 MCG/2 ML INJECTION As Ordered ONE (11:45)
[2021-12-27 12:55] VITALS: BP 121/70
[2021-12-27] MEDS ORDERED: TROPICAMIDE 1% OPHTH SOLN 2ML OD SCH (12:55)
[2021-12-27] MEDS ORDERED: LIDOCAINE 3.5 % 1ML OPHTH TOPICAL GEL OU ONE (12:55)
[2021-12-27] MEDS ORDERED: BSS IRRIG/VANCO(10MG)/TOBRA(5MG)/EPINEPH(1:1000-0.5CC)500ML BAG-ORONLY IR ONE (12:55)
[2021-12-27] MEDS ORDERED: OFLOXACIN 0.3 % (OCUFLOX) OPTH SOL 5ML OD ONE (12:55)
[2021-12-27] MEDS ORDERED: PHENYLEPHRINE HCL 10 % OPHTH. SOL 5ML OD PRN (12:55)
[2021-12-27] MEDS ORDERED: PHENYLEPHRINE 2.5% OPHTH SOL 2ML OD SCH (12:55)
[2021-12-27] MEDS ORDERED: CYCLOPENTOLATE 1% OPHTH SOLN 2 ML BTL OD SCH (12:55)
== END 2021-12-27 13:30 | disposition home or self-care (01) ==
LOC: M SDC 11:05
PROVIDERS: ATTEND Ophthalmology
DX: H25.11 Age-related nuclear cataract, right eye (principal); I48.91 Unspecified atrial fibrillation; I10 Essential (primary) hypertension; E78.5 Hyperlipidemia, unspecified; E11.9 Type 2 diabetes mellitus without complications; E03.9 Hypothyroidism, unspecified; G47.33 Obstructive sleep apnea (adult) (pediatric); Z79.01 Long term (current) use of anticoagulants; Z79.84 Long term (current) use of oral hypoglycemic drugs; Z79.899 Other long term (current) drug therapy; Z88.2 Allergy status to sulfonamides; Z88.8 Allergy status to other drugs, medicaments and biological substances
CPT/HCPCS: 66984; J0697; J2250; J3010; V2632

== ENCOUNTER → 2022-05-07 | Outpatient (REF) | payer MEDICARE, MEDICAID ==
[~2022-05-07] MED LIST changes: -ACETYLCHOLINE OPHTH SOLN 1% 2ML (MIOCHOL-E) As Ordered ONE; -CEFUROXIME 1MG/0.1ML INTRACAMERAL INJ As Ordered ONE; -LIDOCAINE 1% 1ML PF SYRINGE (OR EYE CASES) As Ordered ONE
[2022-05-07 13:58] LABS: BASO # 0.1 10^3/uL (0.0-0.2); BASO % 0.9 % (0.0-1.0); EOS # 0.2 10^3/uL (0.0-0.5); EOS % 2.2 % (0.0-3.0); HEMOGLOBIN 16.5 g/dl (13.5-17.5); LYMPH # 1.9 10^3/uL (1.5-5.0); LYMPH % 27.7 % (24.0-44.0); MEAN CORPUSCULAR HEMOGLOBIN 32.2 pg (27.0-33.0); MEAN CORPUSCULAR VOLUME 97.5 fl (80.0-96.0); MONO # 0.6 10^3/uL (0.0-0.8); NEUTROPHILS % 59.8 % (36.0-66.0); PLATELET COUNT, AUTOMATED 152 10^3/uL (150-450); RED BLOOD COUNT 5.13 10^6/uL (4.30-6.10); WHITE BLOOD COUNT 6.7 10^3/uL (4.0-10.0)
[2022-05-07 14:27] LABS: HEMOGLOBIN A1c 6.2 % (4.0-6.0)
[2022-05-07 14:39] LABS: ALBUMIN 3.5 G/DL (3.2-5.2); ALKALINE PHOSPHATASE 64 U/L (46-116); ALT/SGPT 20 U/L (7.0-40); AST/SGOT 21 U/L (<34); BILIRUBIN,TOTAL 1.6 MG/DL (0.3-1.2); BLOOD UREA NITROGEN 16 MG/DL (9-23); CARBON DIOXIDE LEVEL 30 MMOL/L (20-31); CHLORIDE LEVEL 107 MMOL/L (98-107); CHOLESTEROL LEVEL 101 MG/DL (<200); CREATININE FOR GFR 0.86 MG/DL (0.70-1.30); GLOMERULAR FILTRATION RATE > 60.0 (>42); GLUCOSE, FASTING 106 MG/DL (74-106); HDL CHOLESTEROL 33.6 MG/DL (>40); NON-HDL-C 67.4 MG/DL; POTASSIUM SERUM 4.1 MMOL/L (3.5-5.1); SODIUM LEVEL 144 MMOL/L (136-145); TOTAL PROTEIN 6.4 G/DL (5.7-8.2); TRIGLYCERIDES LEVEL 97 MG/DL (<150)
[2022-05-07 14:41] LABS: THYROID STIMULATING HORMONE 3.481 uIU/ML (0.55-4.78)
[2022-05-07 14:58] LABS: CREATININE, URINE 77.3 MG/DL; MAU/CREAT RATIO 18.1 MCG/MG (0.0-30.0)
== END ==
LOC: M LABDRWAD 13:13
PROVIDERS: ATTEND Nurse Practitioner Family
DX: E11.9 Type 2 diabetes mellitus without complications (principal); E78.5 Hyperlipidemia, unspecified

== ENCOUNTER → 2022-06-06 | Outpatient (CLI) | payer MEDICARE, MEDICAID | LOC: M SOG 08:06 | PROVIDERS: ATTEND Orthopaedic Surgery | DX: Z96.652 Presence of left artificial knee joint (principal) ==

== ENCOUNTER 2022-07-13 07:28 | Day surgery (SDC) | payer MEDICARE, MEDICAID ==
[~2022-07-13] VITALS: Ht 167.6 cm; Wt 111.7 kg
[~2022-07-13 07:28] MED LIST changes: +ATOR1TAB19 PO; +LIDOCAINE 2% 100MG/5ML SDV (FOR ANES.) As Ordered ONE; +NS 1,000 ML IV ONE; +propofoL 200 MG/20 ML VIAL As Ordered ONE
[2022-07-13] MEDS ORDERED: propofoL 200 MG/20 ML VIAL As Ordered ONE (08:35)
[2022-07-13 09:14] VITALS: BP 113/59
== END 2022-07-13 09:45 | disposition home or self-care (01) ==
LOC: M OPP 07:28
PROVIDERS: ATTEND Internal Medicine Gastroenterology
DX: D12.2 Benign neoplasm of ascending colon (principal); D12.4 Benign neoplasm of descending colon; K57.30 Diverticulosis of large intestine without perforation or abscess without bleeding; K64.8 Other hemorrhoids; Z86.010 Personal history of colon polyps

== ENCOUNTER → 2022-08-29 | Outpatient (REF) | payer MEDICARE, MEDICAID ==
[~2022-08-29] MED LIST changes: -LIDOCAINE 2% 100MG/5ML SDV (FOR ANES.) As Ordered ONE; -NS 1,000 ML IV ONE; -propofoL 200 MG/20 ML VIAL As Ordered ONE
[2022-08-29 13:12] LABS: BASO # 0.1 10^3/uL (0.0-0.2); BASO % 0.8 % (0.0-1.0); EOS # 0.1 10^3/uL (0.0-0.5); EOS % 1.8 % (0.0-3.0); HEMATOCRIT 48.3 % (42.0-52.0); HEMOGLOBIN 16.3 g/dl (13.5-17.5); LYMPH # 1.8 10^3/uL (1.5-5.0); LYMPH % 25.6 % (24.0-44.0); MEAN CORPUSCULAR HEMOGLOBIN 32.5 pg (27.0-33.0); MEAN CORPUSCULAR HGB CONC 33.7 g/dl (32.0-36.5); MEAN CORPUSCULAR VOLUME 96.2 fl (80.0-96.0); MONO # 0.6 10^3/uL (0.0-0.8); MONO % 8.5 % (2.0-8.0); NEUTROPHILS # 4.5 10^3/uL (1.5-8.5); PLATELET COUNT, AUTOMATED 141 10^3/uL (150-450); RED BLOOD COUNT 5.02 10^6/uL (4.30-6.10); WHITE BLOOD COUNT 7.2 10^3/uL (4.0-10.0)
[2022-08-29 13:16] LABS: ALBUMIN 3.5 G/DL (3.2-5.2); ALKALINE PHOSPHATASE 66 U/L (46-116); ALT/SGPT 17 U/L (7.0-40); AST/SGOT 12 U/L (<34); BILIRUBIN,TOTAL 2.2 MG/DL (0.3-1.2); BLOOD UREA NITROGEN 18 MG/DL (9-23); CALCIUM LEVEL 9.7 MG/DL (8.3-10.6); CARBON DIOXIDE LEVEL 27 MMOL/L (20-31); CHLORIDE LEVEL 109 MMOL/L (98-107); CHOLESTEROL LEVEL 95 MG/DL (<200); CHOLESTEROL RISK RATIO 2.81 (<5); CREATININE FOR GFR 0.89 MG/DL (0.70-1.30); GLOMERULAR FILTRATION RATE > 60.0 (>42); GLUCOSE, FASTING 109 MG/DL (74-106); HDL CHOLESTEROL 33.8 MG/DL (>40); LDL CHOLESTEROL 38.6 MG/DL (<100); NON-HDL-C 61.2 MG/DL; POTASSIUM SERUM 3.8 MMOL/L (3.5-5.1); PROSTATIC SPECIFIC AG MONITOR 0.21 NG/ML (< 4.00); SODIUM LEVEL 142 MMOL/L (136-145); THYROID STIMULATING HORMONE 5.788 uIU/ML (0.55-4.78); TOTAL PROTEIN 6.6 G/DL (5.7-8.2); TRIGLYCERIDES LEVEL 113 MG/DL (<150)
== END ==
LOC: M LABDRAWC 12:05
PROVIDERS: ATTEND Nurse Practitioner Family
DX: I10 Essential (primary) hypertension (principal); E78.5 Hyperlipidemia, unspecified; E11.9 Type 2 diabetes mellitus without complications; Z12.5 Encounter for screening for malignant neoplasm of prostate

== ENCOUNTER → 2022-11-28 | Outpatient (REF) | payer MEDICARE, MEDICAID ==
[2022-11-28 15:13] LABS: BASO # 0.1 10^3/uL (0.0-0.2); BASO % 0.9 % (0.0-1.0); EOS # 0.1 10^3/uL (0.0-0.5); EOS % 1.9 % (0.0-3.0); HEMATOCRIT 49.4 % (42.0-52.0); HEMOGLOBIN 16.2 g/dl (13.5-17.5); LYMPH # 1.7 10^3/uL (1.5-5.0); LYMPH % 29.2 % (24.0-44.0); MEAN CORPUSCULAR HEMOGLOBIN 31.8 pg (27.0-33.0); MEAN CORPUSCULAR HGB CONC 32.8 g/dl (32.0-36.5); MEAN CORPUSCULAR VOLUME 97.1 fl (80.0-96.0); MONO # 0.5 10^3/uL (0.0-0.8); MONO % 8.1 % (2.0-8.0); NEUTROPHILS # 3.4 10^3/uL (1.5-8.5); NEUTROPHILS % 59.7 % (36.0-66.0); PLATELET COUNT, AUTOMATED 152 10^3/uL (150-450); RED BLOOD COUNT 5.09 10^6/uL (4.30-6.10); WHITE BLOOD COUNT 5.7 10^3/uL (4.0-10.0)
[2022-11-28 16:11] LABS: ALBUMIN 3.8 G/DL (3.2-5.2); ALKALINE PHOSPHATASE 63 U/L (46-116); ALT/SGPT 16 U/L (7.0-40); AST/SGOT 17 U/L (<34); BILIRUBIN,TOTAL 2.4 MG/DL (0.3-1.2); BLOOD UREA NITROGEN 18 MG/DL (9-23); CALCIUM LEVEL 9.8 MG/DL (8.3-10.6); CARBON DIOXIDE LEVEL 31 MMOL/L (20-31); CHLORIDE LEVEL 104 MMOL/L (98-107); CHOLESTEROL LEVEL 93 MG/DL (<200); CREATININE FOR GFR 0.95 MG/DL (0.70-1.30); GLOMERULAR FILTRATION RATE > 60.0 (>42); GLUCOSE, FASTING 103 MG/DL (74-106); HDL CHOLESTEROL 34.4 MG/DL (>40); LDL CHOLESTEROL 40.6 MG/DL (<100); NON-HDL-C 58.6 MG/DL; POTASSIUM SERUM 4.6 MMOL/L (3.5-5.1); SODIUM LEVEL 142 MMOL/L (136-145); THYROID STIMULATING HORMONE 3.224 uIU/ML (0.55-4.78); TOTAL PROTEIN 6.8 G/DL (5.7-8.2); TRIGLYCERIDES LEVEL 90 MG/DL (<150)
== END ==
LOC: M LABDRWAD 13:09
PROVIDERS: ATTEND Nurse Practitioner Family
DX: I10 Essential (primary) hypertension (principal); I48.91 Unspecified atrial fibrillation; E11.9 Type 2 diabetes mellitus without complications

== ENCOUNTER → 2022-12-06 | Outpatient (REF) | payer MEDICARE, MEDICAID | LOC: M SFHCDERM 12:58 | PROVIDERS: ATTEND Nurse Practitioner Family | DX: D04.39 Carcinoma in situ of skin of other parts of face (principal); L57.0 Actinic keratosis ==

== ENCOUNTER → 2023-03-07 | Outpatient (REF) | payer MEDICARE, MEDICAID ==
[2023-03-07 15:09] LABS: BASO # 0.1 10^3/uL (0.0-0.2); BASO % 0.9 % (0.0-1.0); EOS # 0.1 10^3/uL (0.0-0.5); EOS % 2.6 % (0.0-3.0); HEMATOCRIT 51.5 % (42.0-52.0); HEMOGLOBIN 16.9 g/dl (13.5-17.5); LYMPH # 1.4 10^3/uL (1.5-5.0); LYMPH % 24.9 % (24.0-44.0); MEAN CORPUSCULAR HGB CONC 32.8 g/dl (32.0-36.5); MEAN CORPUSCULAR VOLUME 97.5 fl (80.0-96.0); MONO # 0.5 10^3/uL (0.0-0.8); MONO % 9.5 % (2.0-8.0); NEUTROPHILS # 3.4 10^3/uL (1.5-8.5); NEUTROPHILS % 61.9 % (36.0-66.0); PLATELET COUNT, AUTOMATED 159 10^3/uL (150-450); RED BLOOD COUNT 5.28 10^6/uL (4.30-6.10); WHITE BLOOD COUNT 5.5 10^3/uL (4.0-10.0)
[2023-03-07 15:41] LABS: ALBUMIN 3.6 G/DL (3.2-5.2); ALKALINE PHOSPHATASE 66 U/L (46-116); ALT/SGPT 16 U/L (7.0-40); AST/SGOT 16 U/L (<34); BILIRUBIN,TOTAL 2.1 MG/DL (0.3-1.2); BLOOD UREA NITROGEN 16 MG/DL (9-23); CALCIUM LEVEL 9.7 MG/DL (8.3-10.6); CARBON DIOXIDE LEVEL 32 MMOL/L (20-31); CHLORIDE LEVEL 107 MMOL/L (98-107); CHOLESTEROL LEVEL 104 MG/DL (<200); CHOLESTEROL RISK RATIO 2.98 (<5); CREATININE FOR GFR 1.05 MG/DL (0.70-1.30); GLOMERULAR FILTRATION RATE > 60.0 (>42); GLUCOSE, FASTING 95 MG/DL (74-106); HDL CHOLESTEROL 34.8 MG/DL (>40); LDL CHOLESTEROL 49.4 MG/DL (<100); NON-HDL-C 69.2 MG/DL; POTASSIUM SERUM 4.7 MMOL/L (3.5-5.1); SODIUM LEVEL 140 MMOL/L (136-145); TRIGLYCERIDES LEVEL 99 MG/DL (<150)
[2023-03-07 15:42] LABS: THYROID STIMULATING HORMONE 6.389 uIU/ML (0.55-4.78)
[2023-03-07 15:43] LABS: TOTAL 25(OH) VITAMIN D 55.5 NG/ML (20.0-100.0)
== END ==
LOC: M LABDRWAD 12:54
PROVIDERS: ATTEND Nurse Practitioner Family
DX: E03.9 Hypothyroidism, unspecified (principal); I10 Essential (primary) hypertension; E11.9 Type 2 diabetes mellitus without complications; E78.5 Hyperlipidemia, unspecified; Z79.899 Other long term (current) drug therapy

== ENCOUNTER → 2023-05-07 | Outpatient (CLI) | payer OTHER, MEDICAID | LOC: M RAD 11:22 | PROVIDERS: ATTEND Emergency Medicine | DX: N20.9 Urinary calculus, unspecified (principal) ==

== ENCOUNTER → 2023-06-03 | Outpatient (REF) | payer OTHER, MEDICAID ==
[2023-06-03 13:42] LABS: BASO # 0.1 10^3/uL (0.0-0.2); BASO % 0.9 % (0.0-1.0); EOS # 0.2 10^3/uL (0.0-0.5); EOS % 3.1 % (0.0-3.0); HEMATOCRIT 49.7 % (42.0-52.0); HEMOGLOBIN 16.7 g/dl (13.5-17.5); LYMPH # 1.7 10^3/uL (1.5-5.0); LYMPH % 28.8 % (24.0-44.0); MEAN CORPUSCULAR HEMOGLOBIN 32.5 pg (27.0-33.0); MEAN CORPUSCULAR HGB CONC 33.6 g/dl (32.0-36.5); MEAN CORPUSCULAR VOLUME 96.7 fl (80.0-96.0); MONO # 0.6 10^3/uL (0.0-0.8); MONO % 10.2 % (2.0-8.0); NEUTROPHILS # 3.3 10^3/uL (1.5-8.5); NEUTROPHILS % 56.8 % (36.0-66.0); PLATELET COUNT, AUTOMATED 165 10^3/uL (150-450); RED BLOOD COUNT 5.14 10^6/uL (4.30-6.10); WHITE BLOOD COUNT 5.8 10^3/uL (4.0-10.0)
[2023-06-03 14:29] LABS: ALBUMIN 3.3 G/DL (3.2-5.2); ALKALINE PHOSPHATASE 59 U/L (46-116); ALT/SGPT 25 U/L (7.0-40); AST/SGOT 25 U/L (<34); BILIRUBIN,TOTAL 2.2 MG/DL (0.3-1.2); BLOOD UREA NITROGEN 14 MG/DL (9-23); CALCIUM LEVEL 9.8 MG/DL (8.3-10.6); CARBON DIOXIDE LEVEL 31 MMOL/L (20-31); CHLORIDE LEVEL 103 MMOL/L (98-107); CHOLESTEROL LEVEL 99 MG/DL (<200); CHOLESTEROL RISK RATIO 3.13 (<5); CREATININE FOR GFR 1.06 MG/DL (0.70-1.30); GLOMERULAR FILTRATION RATE > 60.0 (>42); GLUCOSE, FASTING 98 MG/DL (74-106); HDL CHOLESTEROL 31.6 MG/DL (>40); NON-HDL-C 67.4 MG/DL; POTASSIUM SERUM 4.7 MMOL/L (3.5-5.1); SODIUM LEVEL 142 MMOL/L (136-145); THYROID STIMULATING HORMONE 3.477 uIU/ML (0.55-4.78); TOTAL PROTEIN 6.4 G/DL (5.7-8.2); TRIGLYCERIDES LEVEL 102 MG/DL (<150)
== END ==
LOC: M LABDRWAD 12:56
PROVIDERS: ATTEND Nurse Practitioner Family
DX: E03.9 Hypothyroidism, unspecified (principal); I10 Essential (primary) hypertension; E11.9 Type 2 diabetes mellitus without complications; E78.5 Hyperlipidemia, unspecified

== ENCOUNTER 2023-07-20 14:21 | Emergency (ER) | payer OTHER, MEDICAID ==
[~2023-07-20] VITALS: Ht 167.6 cm; Wt 115.6 kg
[2023-07-20] MEDS: ACETAMINOPHEN TAB 650MG DOSE (2X325MG) PO ONE (16:28)
[2023-07-20] MEDS: traMADol 50 MG TAB PO ONE (16:28)
[2023-07-20 17:20] LABS: BASO # 0.1 10^3/uL (0.0-0.2); BASO % 0.8 % (0.0-1.0); EOS # 0.1 10^3/uL (0.0-0.5); EOS % 1.5 % (0.0-3.0); HEMATOCRIT 50.8 % (42.0-52.0); HEMOGLOBIN 17.4 g/dl (13.5-17.5); LYMPH # 1.6 10^3/uL (1.5-5.0); LYMPH % 20.8 % (24.0-44.0); MEAN CORPUSCULAR HEMOGLOBIN 32.3 pg (27.0-33.0); MEAN CORPUSCULAR HGB CONC 34.3 g/dl (32.0-36.5); MEAN CORPUSCULAR VOLUME 94.2 fl (80.0-96.0); MONO # 0.6 10^3/uL (0.0-0.8); MONO % 7.8 % (2.0-8.0); NEUTROPHILS # 5.4 10^3/uL (1.5-8.5); NEUTROPHILS % 68.8 % (36.0-66.0); PLATELET COUNT, AUTOMATED 152 10^3/uL (150-450); RED BLOOD COUNT 5.39 10^6/uL (4.30-6.10); WHITE BLOOD COUNT 7.8 10^3/uL (4.0-10.0)
[2023-07-20 17:34] LABS: INR 1.31; PARTIAL THROMBOPLASTIN TIME 29.3 SECONDS (24.8-34.2); PROTHROMBIN TIME 15.9 SECONDS (12.5-14.5)
[2023-07-20 17:46] LABS: BLOOD UREA NITROGEN 12 MG/DL (9-23); CALCIUM LEVEL 9.4 MG/DL (8.3-10.6); CARBON DIOXIDE LEVEL 27 MMOL/L (20-31); CHLORIDE LEVEL 109 MMOL/L (98-107); CREATININE FOR GFR 0.78 MG/DL (0.70-1.30); GLOMERULAR FILTRATION RATE > 60.0 (>42); GLUCOSE, FASTING 98 MG/DL (74-106); POTASSIUM SERUM 4.2 MMOL/L (3.5-5.1); SODIUM LEVEL 142 MMOL/L (136-145)
[2023-07-20] MEDS ORDERED: ASPE4PAD TOP (18:31)
[2023-07-20] MEDS ORDERED: TRAM50TA2 PO (18:31)
[2023-07-20 18:40] VITALS: BP 132/90; TEMP 96.6; O2SAT 96
== END 2023-07-20 18:50 | disposition home or self-care (01) ==
LOC: M ED 14:21
DX: S39.012A Strain of muscle, fascia and tendon of lower back, initial encounter (principal); S52.031A Displaced fracture of olecranon process with intraarticular extension of right ulna, initial encounter for closed fracture; M25.521 Pain in right elbow; M19.021 Primary osteoarthritis, right elbow; M19.031 Primary osteoarthritis, right wrist; X50.0XXA Overexertion from strenuous movement or load, initial encounter; N40.0 Benign prostatic hyperplasia without lower urinary tract symptoms; E03.9 Hypothyroidism, unspecified; Z88.2 Allergy status to sulfonamides; Z88.6 Allergy status to analgesic agent; Z96.651 Presence of right artificial knee joint; Z86.79 Personal history of other diseases of the circulatory system; Z87.442 Personal history of urinary calculi; Z79.01 Long term (current) use of anticoagulants; Z79.02 Long term (current) use of antithrombotics/antiplatelets; Z79.4 Long term (current) use of insulin; Z79.899 Other long term (current) drug therapy; Y92.9 Unspecified place or not applicable; Y93.9 Activity, unspecified; Y99.9 Unspecified external cause status

== ENCOUNTER → 2023-07-25 | Outpatient (CLI) | payer OTHER, MEDICAID ==
[~2023-07-25] MED LIST changes: +ASPE4PAD TOP
== END ==
LOC: M SOG 13:24
PROVIDERS: ATTEND Orthopaedic Surgery
DX: M54.50 Low back pain, unspecified (principal)

== ENCOUNTER → 2023-08-06 | Outpatient (CLI) | payer OTHER, MEDICAID | LOC: M SOG 07:53 | PROVIDERS: ATTEND Physician Assistant | DX: S52.021D Displaced fracture of olecranon process without intraarticular extension of right ulna, subsequent encounter for closed fracture with routine healing (principal) ==

== ENCOUNTER → 2023-08-09 | Outpatient (CLI) | payer OTHER, MEDICAID | LOC: M PLAIMG 08:33 | PROVIDERS: ATTEND Nurse Practitioner Family | DX: N20.9 Urinary calculus, unspecified (principal); K57.30 Diverticulosis of large intestine without perforation or abscess without bleeding ==

== ENCOUNTER → 2023-08-27 | Outpatient (REF) | payer OTHER, MEDICAID ==
[2023-08-27 14:33] LABS: BASO # 0.1 10^3/uL (0.0-0.2); BASO % 0.9 % (0.0-1.0); EOS # 0.2 10^3/uL (0.0-0.5); EOS % 3.4 % (0.0-3.0); HEMOGLOBIN 15.6 g/dl (13.5-17.5); LYMPH # 1.7 10^3/uL (1.5-5.0); MEAN CORPUSCULAR HEMOGLOBIN 31.9 pg (27.0-33.0); MEAN CORPUSCULAR HGB CONC 33.2 g/dl (32.0-36.5); MEAN CORPUSCULAR VOLUME 96.1 fl (80.0-96.0); MONO # 0.6 10^3/uL (0.0-0.8); MONO % 9.1 % (2.0-8.0); NEUTROPHILS # 3.9 10^3/uL (1.5-8.5); NEUTROPHILS % 60.3 % (36.0-66.0); PLATELET COUNT, AUTOMATED 145 10^3/uL (150-450); RED BLOOD COUNT 4.89 10^6/uL (4.30-6.10); WHITE BLOOD COUNT 6.5 10^3/uL (4.0-10.0)
[2023-08-27 15:05] LABS: ALBUMIN 3.4 G/DL (3.2-5.2); ALKALINE PHOSPHATASE 72 U/L (46-116); ALT/SGPT 15 U/L (7.0-40); AST/SGOT 14 U/L (<34); BILIRUBIN,TOTAL 1.8 MG/DL (0.3-1.2); BLOOD UREA NITROGEN 14 MG/DL (9-23); CALCIUM LEVEL 9.7 MG/DL (8.3-10.6); CARBON DIOXIDE LEVEL 31 MMOL/L (20-31); CHLORIDE LEVEL 110 MMOL/L (98-107); CHOLESTEROL LEVEL 103 MG/DL (<200); CHOLESTEROL RISK RATIO 3.26 (<5); CREATININE FOR GFR 1.08 MG/DL (0.70-1.30); GLOMERULAR FILTRATION RATE > 60.0 (>42); GLUCOSE, FASTING 93 MG/DL (74-106); HDL CHOLESTEROL 31.5 MG/DL (>40); LDL CHOLESTEROL 53.3 MG/DL (<100); NON-HDL-C 71.5 MG/DL; SODIUM LEVEL 147 MMOL/L (136-145); TOTAL PROTEIN 6.2 G/DL (5.7-8.2); TRIGLYCERIDES LEVEL 91 MG/DL (<150)
[2023-08-27 15:06] LABS: THYROID STIMULATING HORMONE 3.227 uIU/ML (0.55-4.78)
[2023-08-27 15:10] LABS: HEMOGLOBIN A1c 5.9 % (4.0-6.0)
== END ==
LOC: M LABDRAWP 13:31
PROVIDERS: ATTEND Nurse Practitioner Family
DX: I10 Essential (primary) hypertension (principal)

== ENCOUNTER → 2023-09-04 | Outpatient (REF) | payer OTHER, MEDICAID ==
[2023-09-04 13:35] LABS: APPEARANCE, URINE HAZY (CLEAR); BACTERIA, URINE AUTO 1+ (NEGATIVE); BILIRUBIN, URINE AUTO NEGATIVE (NEGATIVE); BLOOD, URINE BLOOD 2+ (NEGATIVE); CALCIUM OXALATE CRYSTALS SMALL; COLOR, URINE AMBER (YELLOW); GLUCOSE, URINE (UA) AUTO NEGATIVE (NEGATIVE); KETONE, URINE AUTO NEGATIVE (NEGATIVE); LEUKOCYTE ESTERASE, URINE AUTO NEGATIVE (NEGATIVE); MUCUS, URINE SMALL (NEGATIVE); NITRITE, URINE AUTO NEGATIVE (NEGATIVE); PROTEIN, URINE AUTO 1+ mg/dL (NEGATIVE); RBC, URINE AUTO 56 /HPF (0-3); SPECIFIC GRAVITY URINE AUTO 1.028 (1.002-1.035); SQUAMOUS EPITHELIAL CELL UR AU 0 /HPF (0-6); WBC, URINE AUTO 4 /HPF (0-3)
== END ==
LOC: M SMT 12:36
PROVIDERS: ATTEND Specialist
DX: N30.90 Cystitis, unspecified without hematuria (principal)

== ENCOUNTER → 2023-09-13 | Outpatient (CLI) | payer OTHER, MEDICAID | LOC: M PLAIMG 12:19 | PROVIDERS: ATTEND Physician Assistant | DX: S52.021D Displaced fracture of olecranon process without intraarticular extension of right ulna, subsequent encounter for closed fracture with routine healing (principal); Y93.9 Activity, unspecified; Y92.9 Unspecified place or not applicable ==

== ENCOUNTER → 2023-10-03 | Outpatient (REF) | payer OTHER, MEDICAID ==
[2023-10-03 13:39] LABS: APPEARANCE, URINE CLEAR (CLEAR); BACTERIA, URINE AUTO NEGATIVE (NEGATIVE); BILIRUBIN, URINE AUTO NEGATIVE (NEGATIVE); BLOOD, URINE BLOOD 2+ (NEGATIVE); CALCIUM OXALATE CRYSTALS SMALL; COLOR, URINE YELLOW (YELLOW); GLUCOSE, URINE (UA) AUTO NEGATIVE (NEGATIVE); KETONE, URINE AUTO NEGATIVE (NEGATIVE); LEUKOCYTE ESTERASE, URINE AUTO NEGATIVE (NEGATIVE); MUCUS, URINE SMALL (NEGATIVE); NITRITE, URINE AUTO NEGATIVE (NEGATIVE); PROTEIN, URINE AUTO NEGATIVE (NEGATIVE); RBC, URINE AUTO 18 /HPF (0-3); SPECIFIC GRAVITY URINE AUTO 1.016 (1.002-1.035); SQUAMOUS EPITHELIAL CELL UR AU 0 /HPF (0-6); UROBILINOGEN, URINE AUTO 0.2 mg/dL (0.0-2.0); WBC, URINE AUTO 1 /HPF (0-3)
== END ==
LOC: M SMT 12:31
PROVIDERS: ATTEND Specialist
DX: R31.9 Hematuria, unspecified (principal)

== ENCOUNTER → 2023-12-02 | Outpatient (REF) | payer OTHER, MEDICAID ==
[~2023-12-02] MED LIST changes: +GABA-1172 PO; -GABA-282 PO
[2023-12-02 13:01] LABS: BASO # 0.1 10^3/uL (0.0-0.2); BASO % 0.9 % (0.0-1.0); EOS # 0.2 10^3/uL (0.0-0.5); EOS % 2.4 % (0.0-3.0); HEMATOCRIT 48.4 % (42.0-52.0); HEMOGLOBIN 16.2 g/dl (13.5-17.5); LYMPH % 29.5 % (24.0-44.0); MEAN CORPUSCULAR HEMOGLOBIN 32.5 pg (27.0-33.0); MEAN CORPUSCULAR HGB CONC 33.5 g/dl (32.0-36.5); MONO # 0.7 10^3/uL (0.0-0.8); MONO % 10.3 % (2.0-8.0); NEUTROPHILS # 3.7 10^3/uL (1.5-8.5); NEUTROPHILS % 56.6 % (36.0-66.0); PLATELET COUNT, AUTOMATED 144 10^3/uL (150-450); RED BLOOD COUNT 4.99 10^6/uL (4.30-6.10); WHITE BLOOD COUNT 6.6 10^3/uL (4.0-10.0)
[2023-12-02 13:12] LABS: HEMOGLOBIN A1c 5.9 % (4.0-6.0)
[2023-12-02 13:28] LABS: THYROID STIMULATING HORMONE 5.752 uIU/ML (0.55-4.78)
[2023-12-02 13:45] LABS: ALBUMIN 3.6 G/DL (3.2-5.2); ALKALINE PHOSPHATASE 69 U/L (46-116); ALT/SGPT 17 U/L (7.0-40); AST/SGOT 15 U/L (<34); BILIRUBIN,TOTAL 1.9 MG/DL (0.3-1.2); BLOOD UREA NITROGEN 15 MG/DL (9-23); CALCIUM LEVEL 10.1 MG/DL (8.3-10.6); CARBON DIOXIDE LEVEL 30 MMOL/L (20-31); CHLORIDE LEVEL 109 MMOL/L (98-107); CHOLESTEROL LEVEL 114 MG/DL (<200); CHOLESTEROL RISK RATIO 3.68 (<5); GLOMERULAR FILTRATION RATE > 60.0 (>42); GLUCOSE, FASTING 102 MG/DL (74-106); HDL CHOLESTEROL 30.9 MG/DL (>40); LDL CHOLESTEROL 62.5 MG/DL (<100); NON-HDL-C 83.1 MG/DL; POTASSIUM SERUM 4.2 MMOL/L (3.5-5.1); SODIUM LEVEL 143 MMOL/L (136-145); TOTAL PROTEIN 6.7 G/DL (5.7-8.2); TRIGLYCERIDES LEVEL 103 MG/DL (<150)
== END ==
LOC: M LABDRWAD 12:36
PROVIDERS: ATTEND Nurse Practitioner Family
DX: I10 Essential (primary) hypertension (principal); I48.91 Unspecified atrial fibrillation; E03.9 Hypothyroidism, unspecified; E11.9 Type 2 diabetes mellitus without complications

== ENCOUNTER → 2024-04-17 | Outpatient (REF) | payer OTHER, MEDICARE, MEDICAID ==
[2024-04-17 14:28] LABS: BASO # 0.1 10^3/uL (0.0-0.2); BASO % 0.9 % (0.0-1.0); EOS # 0.1 10^3/uL (0.0-0.5); EOS % 2.6 % (0.0-3.0); HEMATOCRIT 47.6 % (42.0-52.0); HEMOGLOBIN 15.5 g/dl (13.5-17.5); LYMPH # 1.8 10^3/uL (1.5-5.0); LYMPH % 32.9 % (24.0-44.0); MEAN CORPUSCULAR HEMOGLOBIN 31.6 pg (27.0-33.0); MEAN CORPUSCULAR HGB CONC 32.6 g/dl (32.0-36.5); MEAN CORPUSCULAR VOLUME 96.9 fl (80.0-96.0); MONO # 0.5 10^3/uL (0.0-0.8); MONO % 9.3 % (2.0-8.0); NEUTROPHILS # 2.9 10^3/uL (1.5-8.5); NEUTROPHILS % 54.1 % (36.0-66.0); PLATELET COUNT, AUTOMATED 146 10^3/uL (150-450); RED BLOOD COUNT 4.91 10^6/uL (4.30-6.10); WHITE BLOOD COUNT 5.4 10^3/uL (4.0-10.0)
[2024-04-17 15:14] LABS: ALBUMIN 3.4 G/DL (3.2-5.2); ALKALINE PHOSPHATASE 60 U/L (40-129); ALT/SGPT 23 U/L (7.0-40); AST/SGOT 23 U/L (<34); BILIRUBIN,TOTAL 1.9 MG/DL (0.3-1.2); BLOOD UREA NITROGEN 11 MG/DL (9-23); CALCIUM LEVEL 9.4 MG/DL (8.3-10.6); CARBON DIOXIDE LEVEL 33 MMOL/L (20-31); CHLORIDE LEVEL 105 MMOL/L (98-107); CHOLESTEROL LEVEL 103 MG/DL (<200); CHOLESTEROL RISK RATIO 2.79 (<5); CREATININE FOR GFR 0.86 MG/DL (0.70-1.30); GLOMERULAR FILTRATION RATE > 60.0 (>42); GLUCOSE, FASTING 113 MG/DL (74-106); HDL CHOLESTEROL 36.8 MG/DL (>40); LDL CHOLESTEROL 47.6 MG/DL (<100); NON-HDL-C 66.2 MG/DL; POTASSIUM SERUM 4.1 MMOL/L (3.5-5.1); SODIUM LEVEL 144 MMOL/L (136-145); TOTAL PROTEIN 6.6 G/DL (5.7-8.2); TRIGLYCERIDES LEVEL 93 MG/DL (<150)
[2024-04-17 15:15] LABS: THYROID STIMULATING HORMONE 4.749 uIU/ML (0.55-4.78)
== END ==
LOC: M LABDRWAD 13:18
PROVIDERS: ATTEND Nurse Practitioner Family
DX: I10 Essential (primary) hypertension (principal); E66.3 Overweight; E78.5 Hyperlipidemia, unspecified; E03.9 Hypothyroidism, unspecified; E11.9 Type 2 diabetes mellitus without complications

== ENCOUNTER 2024-08-18 15:23 | Emergency (ER) | payer MEDICARE, MEDICAID ==
[~2024-08-18] VITALS: Ht 175.3 cm; Wt 114.0 kg
[~2024-08-18 15:23] MED LIST changes: -FLOM0.4C39 PO; +TAMS-18 PO
[2024-08-18 17:07] LABS: BASO # 0.1 10^3/uL (0.0-0.2); BASO % 0.9 % (0.0-1.0); EOS # 0.2 10^3/uL (0.0-0.5); EOS % 2.4 % (0.0-3.0); LYMPH # 2.0 10^3/uL (1.5-5.0); LYMPH % 29.6 % (24.0-44.0); MONO # 0.7 10^3/uL (0.0-0.8); MONO % 10.2 % (2.0-8.0); NEUTROPHILS # 3.8 10^3/uL (1.5-8.5); NEUTROPHILS % 56.6 % (36.0-66.0); PLATELET COUNT, AUTOMATED 166 10^3/uL (150-450)
[2024-08-18 17:24] LABS: CPK CREATINE PHOSPHOKINASE 66.0 U/L (46-171)
[2024-08-18 17:25] LABS: ALT/SGPT 20.0 U/L (7.0-40); AST/SGOT 22.0 U/L (<34); CALCIUM LEVEL 8.9 MG/DL (8.3-10.6); CARBON DIOXIDE LEVEL 29.0 MMOL/L (20-31); CHLORIDE LEVEL 106.0 MMOL/L (98-107); CK-MB VALUE MASS 1.1 NG/ML (<3.6); CREATININE FOR GFR 0.94 MG/DL (0.70-1.30); GLOMERULAR FILTRATION RATE 83.5 (>42); MB/CK RELATIVE INDEX 1.66 (< OR =4); POTASSIUM SERUM 4.1 MMOL/L (3.5-5.1); SODIUM LEVEL 143.0 MMOL/L (136-145)
[2024-08-18] MEDS ORDERED: ISOVUE-370 76% 100 ML VIAL As Ordered ONE (18:36)
[2024-08-18] MEDS ORDERED: MEDR4PAK PO (19:19)
[2024-08-18] MEDS ORDERED: VENTAER INH (19:19)
[2024-08-18 19:27] VITALS: BP 112/71; TEMP 97.8; O2SAT 98
== END 2024-08-18 19:41 | disposition home or self-care (01) ==
LOC: M ED 15:23
DX: R06.02 Shortness of breath (principal); I48.91 Unspecified atrial fibrillation; E11.9 Type 2 diabetes mellitus without complications; G47.33 Obstructive sleep apnea (adult) (pediatric); Z86.79 Personal history of other diseases of the circulatory system; Z87.442 Personal history of urinary calculi; Z79.01 Long term (current) use of anticoagulants; Z79.52 Long term (current) use of systemic steroids; Z79.02 Long term (current) use of antithrombotics/antiplatelets; Z79.899 Other long term (current) drug therapy; Z88.2 Allergy status to sulfonamides; Z88.8 Allergy status to other drugs, medicaments and biological substances
CPT/HCPCS: 36415; 71045; 71275; 80053; 82550; 82553; 83690; 83880; 84484; 85025; 87486; 87581; 87633; 87798; 93005; 99284; Q9967

== ENCOUNTER → 2024-10-19 | Outpatient (CLI) | payer MEDICARE, MEDICAID ==
[~2024-10-19] MED LIST changes: +MEDR4PAK PO
== END ==
LOC: M RAD 13:59
PROVIDERS: ATTEND Urology
DX: N20.0 Calculus of kidney (principal)

== ENCOUNTER → 2024-11-27 | Outpatient (CLI) | payer MEDICARE, MEDICAID ==
[2024-11-27 17:50] LABS: ESTIMATED AVERAGE GLUCOSE 143.0 MG/DL (60-110)
[2024-11-27 17:56] LABS: BASO # 0.1 10^3/uL (0.0-0.2); BASO % 1.3 % (0.0-1.0); EOS # 0.6 10^3/uL (0.0-0.5); EOS % 9.7 % (0.0-3.0); LYMPH # 1.9 10^3/uL (1.5-5.0); LYMPH % 29.3 % (24.0-44.0); MONO # 0.6 10^3/uL (0.0-0.8); MONO % 8.6 % (2.0-8.0); NEUTROPHILS # 3.2 10^3/uL (1.5-8.5); NEUTROPHILS % 50.8 % (36.0-66.0); PLATELET COUNT, AUTOMATED 165 10^3/uL (150-450)
[2024-11-27 18:04] LABS: ALT/SGPT 24.0 U/L (7.0-40); AST/SGOT 24.0 U/L (<34); CALCIUM LEVEL 9.2 MG/DL (8.3-10.6); CARBON DIOXIDE LEVEL 31.0 MMOL/L (20-31); CHLORIDE LEVEL 105.0 MMOL/L (98-107); CHOLESTEROL LEVEL 108.0 MG/DL (<200); CHOLESTEROL RISK RATIO 3.11 (<5); CREATININE FOR GFR 0.88 MG/DL (0.70-1.30); GLOMERULAR FILTRATION RATE 88.6 (>42); LDL CHOLESTEROL 53.3 MG/DL (<100); NON-HDL-C 73.3 MG/DL; POTASSIUM SERUM 4.4 MMOL/L (3.5-5.1); SODIUM LEVEL 146.0 MMOL/L (136-145); TRIGLYCERIDES LEVEL 100.0 MG/DL (<150)
== END ==
LOC: M LABDRWAD 10:25
PROVIDERS: ATTEND Nurse Practitioner Family
DX: E03.9 Hypothyroidism, unspecified (principal); I10 Essential (primary) hypertension; Z79.899 Other long term (current) drug therapy

== ENCOUNTER → 2025-01-06 | Outpatient (CLI) | payer MEDICARE, MEDICAID ==
[~2025-01-06] MED LIST changes: -FISH10005 PO; +FISH1CAP38 PO
== END ==
LOC: M SLEEP 20:00
PROVIDERS: ATTEND Physician Assistant
DX: G47.33 Obstructive sleep apnea (adult) (pediatric) (principal)